=== PATIENT | male | born 1965 | race Caucasian/White ===

== ENCOUNTER 2017-10-01 07:43 | Observation (INO) | payer MEDICARE, OTHER ==
[2017-10-01] VITALS (8 sets, daily range): BP systolic 118–151; BP diastolic 73–88; PULSE 85–128; RESP 15–18; TEMP 97.7–98.3; O2SAT 96–100
[~2017-10-01] VITALS: Ht 172.7 cm; Wt 100.0 kg
[~2017-10-01 07:43] MED LIST: GLIM1 PO; GLUCTAB PO; ZYPR15TA PO
[2017-10-01] MEDS ORDERED: SODIUM CHLORIDE 0.9% FLUSH 10 ML FLUSH IV FLUSH PRN ×2 (08:30→11:45)
[2017-10-01] MEDS ORDERED: TETANUS/DIPHTHERIA TOXOID ADULT 0.5 ML VIAL IM ONE (08:30)
--- NOTE | 2017-10-01 08:46 | RADRPT ---
EXAM DATE/TIME: 10/01/2017 08:28 [facility] COMPARISON: No previous studies available for comparison. INDICATIONS : Fall today, hit face on ground, altered mental status RADIATION DOSE: 56.35 CTDIvol (mGy) MEDICAL HISTORY : Congestive heart failure. Hypertension. Diabetes SURGICAL HISTORY : None. ENCOUNTER: Initial ACUITY: 1 day PAIN SCALE: 4/10 LOCATION: cranial TECHNIQUE: Multiple contiguous axial images were obtained of the head. Using automated exposure control and adj ustment of the mA and/or kV according to patient size, radiation dose was kept as low as reasonably a chievable to obtain optimal diagnostic quality images. DICOM format image data is available electro nically for review and comparison. FINDINGS: CEREBRUM: The ventricles are normal for age. No evidence of midline shift, mass lesion, hemorrhage or acute in farction. No extra-axial fluid collections are seen. POSTERIOR FOSSA: The cerebellum and brainstem are intact. There is a small 2 cm CSF collection along the posterior me dial aspect of the right cerebellum suggesting probable arachnoid cyst. The 4th ventricle is midline. The cerebellopontine angle is unremarkable. EXTRACRANIAL: The visualized portion of the orbits is intact. SKULL: The calvaria is intact. No evidence of skull fracture. CONCLUSION: 1. Probable arachnoid cyst along the posterior medial aspect of the right cerebellum measuring 2 cm. 2. No acute infarct, acute hemorrhage, mass effect or midline shift. Guero Martines MD on October 01, 2017 at 8:42 Board Certified Radiologist. This report was verified electronically.
[2017-10-01 08:56] LABS: AUTOMATED NEUTROPHIL # 9.7 TH/MM3 (1.8-7.7); BASOPHIL # 0.1 TH/MM3 (0-0.2); BASOPHIL % 0.6 % (0.0-2.0); EOSINOPHIL # 0.1 TH/MM3 (0-0.4); EOSINOPHIL % 0.8 % (0.0-4.0); HEMATOCRIT 36.7 % (39.0-51.0); HEMOGLOBIN 12.3 GM/DL (13.0-17.0); LYMPH % 8.4 % (9.0-44.0); MEAN CELL VOLUME 84.8 FL (80.0-100.0); MEAN CORPUSCULAR HEMOGLOBIN 28.4 PG (27.0-34.0); MEAN CORPUSCULAR HGB CONC 33.4 % (32.0-36.0); MEAN PLATELET VOLUME 9.4 FL (7.0-11.0); MONOCYTE # 1.1 TH/MM3 (0-0.9); NEUT % 81.2 % (16.0-70.0); PLATELET COUNT 287 TH/MM3 (150-450); RED BLOOD COUNT 4.33 MIL/MM3 (4.50-5.90); RED CELL DISTRIBUTION WIDTH 13.7 % (11.6-17.2)
[2017-10-01 09:18] LABS: ALBUMIN 3.3 GM/DL (3.4-5.0); AST (GOT) 31 U/L (15-37); BICARBONATE 24.5 MEQ/L (21.0-32.0); BLOOD UREA NITROGEN 19 MG/DL (7-18); CALCIUM 9.5 MG/DL (8.5-10.1); CHLORIDE 100 MEQ/L (98-107); GLOMERULAR FILTRATION RATE 89 ML/MIN (>89); GLUCOSE,RANDOM 133 MG/DL (74-106); SODIUM (NA) 135 MEQ/L (136-145)
[2017-10-01 09:19] LABS: ALT (GPT) 45 U/L (12-78)
[2017-10-01 09:21] LABS: ALKALINE PHOSPHATASE 83 U/L (45-117); TOTAL BILIRUBIN ADULT 0.6 MG/DL (0.2-1.0)
--- NOTE | 2017-10-01 09:44 | RADRPT ---
EXAM DATE/TIME: 10/01/2017 09:03 [facility] COMPARISON: No previous studies available for direct comparison. Comparison made to report from prior chest x-ray from 02/27/2009 which demonstrated elevation of the right hemidiaphragm by report. INDICATIONS : Fever. Cough. MEDICAL HISTORY : Congestive heart failure. Hypertension Diabetes. SURGICAL HISTORY : None. ENCOUNTER: Initial ACUITY: 2 days PAIN SCORE: 1/10 LOCATION: Bilateral chest FINDINGS: Single AP erect portable chest was obtained and demonstrates moderate elevation of the right hemidiap hragm. There are no confluent infiltrates or effusions. The heart size is within normal limits. There is no perihilar edema. The bony thorax is intact. There is a calcified granuloma in the left midlung . CONCLUSION: 1. No acute cardiopulmonary disease. 2. Chronic elevation of the right hemidiaphragm according to report. Shiva Carney MD on October 01, 2017 at 9:39 Board Certified Radiologist. This report was verified electronically.
--- NOTE | 2017-10-01 10:41 | PD ---
HPI Chief Complaint: Fall Time Seen by Provider: 08:04 Travel History International Travel<30 days: No Contact w/Intl Traveler<30days: No Traveled to known affect area: No History of Present Illness HPI The patient is 52 years old. He arrives to the ER by EMS. He reports to me that he had a fall after sitting on a park bench when he stood up and then became dizzy. The patient fell to the ground. [facility] called EMS. Here he reports admission to the hospital in [place] for 2 years following a fall. His bilateral upper extremity weakness chronic in nature with flexion deformities at the wrists bilaterally. Patient is not sure of the diagnosis of the care is to account for it. He reports taking a nerve stimulation medication for the wrist weakness. He reports the upper extremity weakness is due to a fall onto the left side in the remote past. PFSH Past Medical History Arthritis: No Asthma: No Heart Rhythm Problems: No Cardiovascular Problems: No High Cholesterol: No Chest Pain: No Congestive Heart Failure: Yes COPD: No Cerebrovascular Accident: No Diabetes: Yes (States has not taken diabetes medicine for 3-4 days; Not sure what he takes) Patient Takes Glucophage: No Diminished Hearing: No GERD: Yes Genitourinary: No Headaches: No Hepatitis: No Hiatal Hernia: No Hypertension: Yes Musculoskeletal: No Psychiatric: Yes (CHRONIC PARANOID SCHIZOPHRENIA) Reproductive: No Respiratory: No Myocardial Infarction: No Schizophrenia: Yes Seizures: No Ulcer: No Tetanus Vaccination: > 5 Years Influenza Vaccination: No Past Surgical History Surgical History: No Previous Surgery Appendectomy: No Social History Alcohol Use: No Tobacco Use: No Substance Use: No Allergies-Medications (Allergen,Severity, Reaction): Coded Allergies: No Known Allergies (Verified Allergy, Unknown, 10/01/17) Reported Meds & Prescriptions Reported Meds & Active Scripts Active No Active Prescriptions or Reported Medications Review of Systems Except as stated in HPI: all other systems reviewed are Neg General / Constitutional: No: Fever Physical Exam Narrative GENERAL: 52 yo M, WNWD, chronically ill in appearance Vital Signs Date Time Temp Pulse Resp B/P (MAP) Pulse Ox O2 Delivery O2 Flow Rate FiO2 10/01/17 10:51 98.3 85 15 118/75 (89) 97 Room Air 10/01/17 09:54 98.2 93 15 151/79 (103) 100 Room Air 10/01/17 08:29 97.8 98 17 127/86 (100) 99 Room Air 10/01/17 08:10 98 18 98 Room Air 10/01/17 08:05 97.7 100 18 147/88 (107) 98 SKIN: Warm and dry. There are large blisters about the lower extremities bilaterally. HEAD: Atraumatic. Normocephalic. EYES: Pupils equal and round. No scleral icterus. No injection or drainage. ENT: No nasal bleeding or discharge. Mucous membranes pink and moist. NECK: Trachea midline. No JVD. CARDIOVASCULAR: Regular rate and rhythm. RESPIRATORY: No accessory muscle use. Clear to auscultation. Breath sounds equal bilaterally. GASTROINTESTINAL: Abdomen soft, non-tender, nondistended. Hepatic and splenic margins not palpable. MUSCULOSKELETAL: 2+ pitting edema about the bilateral lower extremities. NEUROLOGICAL: Awake and alert. No obvious cranial nerve deficits. Motor grossly within normal limits. Five out of 5 muscle strength in the arms and legs. Normal speech. PSYCHIATRIC: Appropriate mood and affect; insight and judgment normal. Data Data Last Documented VS Vital Signs Date Time Temp Pulse Resp B/P (MAP) Pulse Ox O2 Delivery O2 Flow Rate FiO2 10/01/17 10:51 98.3 85 15 118/75 (89) 97 Room Air Orders Orders Electrocardiogram (10/01/17 08:19) Comprehensive Metabolic Panel (10/01/17 08:19) Creatine Kinase (Cpk) (10/01/17 08:19) Chest, Single Ap (10/01/17 08:19) Ct Brain W/O Iv Contrast(Rout) (10/01/17 08:19) Ecg Monitoring (10/01/17 08:19) Iv Access Insert/Monitor (10/01/17 08:19) Oximetry (10/01/17 08:19) Sodium Chloride 0.9% Flush (Ns Flush) (10/01/17 08:30) Drug Screen, Random Urine (10/01/17 08:19) Alcohol (Ethanol) (10/01/17 08:19) B-Type Natriuretic Peptide (10/01/17 08:19) Tetanus/Diphtheria Tox Adult (Tetanus/Di (10/01/17 08:30) Complete Blood Count With Diff (10/01/17 08:19) CKMB (10/01/17 08:30) CKMB% (10/01/17 08:30) Admit Order (Ed Use Only) (10/01/17 ) Vital Signs (Adult) Q4H (10/01/17 11:01) Activity Bed Rest (10/01/17 11:01) Labs Laboratory Tests Test 10/01/17 08:30 White Blood Count 12.0 TH/MM3 Red Blood Count 4.33 MIL/MM3 Hemoglobin 12.3 GM/DL Hematocrit 36.7 % Mean Corpuscular Volume 84.8 FL Mean Corpuscular Hemoglobin 28.4 PG Mean Corpuscular Hemoglobin Concent 33.4 % Red Cell Distribution Width 13.7 % Platelet Count 287 TH/MM3 Mean Platelet Volume 9.4 FL Neutrophils (%) (Auto) 81.2 % Lymphocytes (%) (Auto) 8.4 % Monocytes (%) (Auto) 9.0 % Eosinophils (%) (Auto) 0.8 % Basophils (%) (Auto) 0.6 % Neutrophils # (Auto) 9.7 TH/MM3 Lymphocytes # (Auto) 1.0 TH/MM3 Monocytes # (Auto) 1.1 TH/MM3 Eosinophils # (Auto) 0.1 TH/MM3 Basophils # (Auto) 0.1 TH/MM3 CBC Comment DIFF FINAL Differential Comment Blood Urea Nitrogen 19 MG/DL Creatinine 0.90 MG/DL Random Glucose 133 MG/DL Total Protein 8.0 GM/DL Albumin 3.3 GM/DL Calcium Level 9.5 MG/DL Alkaline Phosphatase 83 U/L Aspartate Amino Transf (AST/SGOT) 31 U/L Alanine Aminotransferase (ALT/SGPT) 45 U/L Total Bilirubin 0.6 MG/DL Sodium Level 135 MEQ/L Potassium Level 4.3 MEQ/L Chloride Level 100 MEQ/L Carbon Dioxide Level 24.5 MEQ/L Anion Gap 11 MEQ/L Estimat Glomerular Filtration Rate 89 ML/MIN Total Creatine Kinase 671 U/L Creatine Kinase MB 18.2 NG/ML Creatine Kinase MB % 2.7 % B-Type Natriuretic Peptide 23 PG/ML Urine Opiates Screen NEG Urine Barbiturates Screen NEG Urine Amphetamines Screen NEG Urine Benzodiazepines Screen NEG Urine Cocaine Screen NEG Urine Cannabinoids Screen NEG Ethyl Alcohol Level LESS THAN 3 MG/DL MDM Medical Decision Making Medical Screen Exam Complete: Yes Emergency Medical Condition: Yes Medical Record Reviewed: Yes Differential Diagnosis Renal failure, anemia, alcoholism, stroke, intrarenal hemorrhage, encephalopathy Narrative Course CBC & BMP Diagram 10/01/17 08:30 Total Protein 8.0, Albumin 3.3 L, Calcium Level 9.5, Alkaline Phosphatase 83, Aspartate Amino Transf (AST/SGOT) 31, Alanine Aminotransferase (ALT/SGPT) 45, Total Bilirubin 0.6 Total CK 671 BNP 23 UTox callahan-negative EtOH < 3 Etiology of altered mental status unclear. Admission to [facility] [place]. Discussed with Dr. Boateng. Diagnosis Primary Impression: History of recent fall Additional Impressions: Abrasion, face without infection Lower extremity edema FEN Altered mental status Qualified Codes: R41.82 - Altered mental status, unspecified Admitting Information Admitting Physician Requests: Observation Scripts No Active Prescriptions or Reported Meds Jez Yee MD Oct 01, 2017 10:41
--- NOTE | 2017-10-01 11:09 | HHI.HP ---
HPI Service Family Medicine Primary Care Physician Unknown Admission Diagnosis AMS; Fall; Edema Diagnoses: International Travel<30 Days: No Contact w/Intl Traveler<30days: No Known Affected Area: No History of Present Illness Patient is a 52 y/o M w/hx of paranoid schizophrenia presenting w/LE edema. Fell at around 5:30 am from a bench after sleeping. States he slipped while standing up and his knees caught the pavement and his his head on the pavement. Thinks he might have been dizzy or half sleeping when he fell after being startled by something that woke him up. Was able to get back up in 10 minutes by himself. Got passerbys to call the police and ambulance. No vision changes, no syncope, no nausea or vertigo, no chest pain or palpitations. Last meal was yesterday evening - was a foot-long sandwich. No hx of falls. Has had watery diarrhea for the last couple days. No abdominal pain, no vomiting, no recent illness. No fevers, chills, or night sweats. No heart disease or lung disease hx or work-up. No dysuria. Leg swelling noticed to worsen in the last two weeks. Saw a little swelling in [place]. Has scratches on his forehead. States he had bleeding from his nose and face after fall. Was taking something for his arms "to stimulate his arms." Does not remember what it was. Reports that he came to [place] on the 14 of September from an assisted living place in [place] by [employer] bus. States he got him three meals a day and that they took care of him. States he came back because he is a telida, and he was at the end of his stay. Has not taken his medications since leaving. Last hospitalized in [place] in 2009 for psychosis and being "so paranoid he was unable to have cogent conversation w/physician." Was discharged w/Zyprexa 15 mg PO BID. It appears he has stopped taking this medication a while ago. (Oriana Boateng MD R1) Review of Systems Constitutional: DENIES: Fatigue, Weight loss Endocrine: DENIES: Polydipsia, Polyuria Eyes: DENIES: Blurred vision, Vision loss Ears, nose, mouth, throat: DENIES: Hearing loss, Throat pain Respiratory: DENIES: Cough, Shortness of breath Cardiovascular: DENIES: Chest pain Gastrointestinal: DENIES: Constipation, Diarrhea Genitourinary: DENIES: Urinary incontinence, Urgency Musculoskeletal: DENIES: Joint pain, Muscle aches Integumentary: DENIES: Abnormal pigmentation Hematologic/lymphatic: DENIES: Bruising Immunologic/allergic: DENIES: Eczema Neurologic: DENIES: Localized weakness, Paresthesias, Poor Balance (Oriana Boategn MD R1) Past Family Social History Past Medical History Schizophrenia Rotator cuff tear on the left - slight, no surgery warranted Diabetes per prior documentation Past Surgical History None (Oriana Boateng MD R1) Allergies: Coded Allergies: No Known Allergies (Verified Allergy, Unknown, 10/01/17) Family History Mom: passed from cancer Dad: passed from natural causes Social History No smoking or drinking Currently homeless, visits friends Is on social security disability (Oriana Boateng MD R1) Physical Exam Vital Signs Vital Signs Date Time Temp Pulse Resp B/P (MAP) Pulse Ox O2 Delivery O2 Flow Rate FiO2 10/01/17 10:51 98.3 85 15 118/75 (89) 97 Room Air 10/01/17 09:54 98.2 93 15 151/79 (103) 100 Room Air 10/01/17 08:29 97.8 98 17 127/86 (100) 99 Room Air 10/01/17 08:10 98 18 98 Room Air 10/01/17 08:05 97.7 100 18 147/88 (107) 98 Physical Exam GENERAL: This is a tanned, disheveled appearing man sitting up in bed and sleeping. SKIN: A superficial 4x2 cm scratch w/skin desquamation, draining serosanguinous fluid. Some hyperpigmentation of the lower extremities noted. Healing facial abrasions and superficial scratches on the forhead, the nasal bridge, and near the right nares. No drainage or bleeding noted. HEAD: Atraumatic. Normocephalic. No temporal or scalp tenderness. EYES: Pupils equal round and reactive. Extraocular motions intact. No scleral icterus. No injection or drainage. ENT: Moist mucous membranes. Throat without erythema, tonsillar hypertrophy or exudate. Uvula midline. Airway patent. NECK: supple CARDIOVASCULAR: Regular rate and rhythm without murmurs, gallops, or rubs. RESPIRATORY: Clear to auscultation. Breath sounds equal bilaterally. No wheezes , rales, or rhonchi. GASTROINTESTINAL: Abdomen soft, protuberant. No hepato-splenomegaly, or palpable masses. No guarding. MUSCULOSKELETAL: Significant bilateral swelling of the lower extremities, red and crockett color w/sharp demarcation from rest of skin. Tenderness to slight touch , does not appear to be pitting. Bilateral hands in a clawed position, unable to extend at the wrist but able to flex. 4/5 motor strength at the right hand, 5 /5 left. Normal ROM of the lower extremities, no change in motor strength. NEUROLOGICAL: Awake and alert. Cranial nerves II through XII intact. Motor and sensory grossly within normal limits. Normal speech. Sensation of the bottom of the feet and toes intact. Slight numbness endorses by patient. PSYCH: lucid, alert and oriented x 3 (place, date, name). Denies visual or auditory hallucinations. Laboratory Laboratory Tests Test 10/01/17 08:30 White Blood Count 12.0 Red Blood Count 4.33 Hemoglobin 12.3 Hematocrit 36.7 Mean Corpuscular Volume 84.8 Mean Corpuscular Hemoglobin 28.4 Mean Corpuscular Hemoglobin Concent 33.4 Red Cell Distribution Width 13.7 Platelet Count 287 Mean Platelet Volume 9.4 Neutrophils (%) (Auto) 81.2 Lymphocytes (%) (Auto) 8.4 Monocytes (%) (Auto) 9.0 Eosinophils (%) (Auto) 0.8 Basophils (%) (Auto) 0.6 Neutrophils # (Auto) 9.7 Lymphocytes # (Auto) 1.0 Monocytes # (Auto) 1.1 Eosinophils # (Auto) 0.1 Basophils # (Auto) 0.1 CBC Comment DIFF FINAL Differential Comment Blood Urea Nitrogen 19 Creatinine 0.90 Random Glucose 133 Total Protein 8.0 Albumin 3.3 Calcium Level 9.5 Alkaline Phosphatase 83 Aspartate Amino Transf (AST/SGOT) 31 Alanine Aminotransferase (ALT/SGPT) 45 Total Bilirubin 0.6 Sodium Level 135 Potassium Level 4.3 Chloride Level 100 Carbon Dioxide Level 24.5 Anion Gap 11 Estimat Glomerular Filtration Rate 89 Total Creatine Kinase 671 Creatine Kinase MB 18.2 Creatine Kinase MB % 2.7 B-Type Natriuretic Peptide 23 Urine Opiates Screen NEG Urine Barbiturates Screen NEG Urine Amphetamines Screen NEG Urine Benzodiazepines Screen NEG Urine Cocaine Screen NEG Urine Cannabinoids Screen NEG Ethyl Alcohol Level LESS THAN 3 (Oriana Boateng MD R1) Result Diagram: 10/01/1782910/01/17829 Imaging Last Impressions Head CT 10/01/17818 Signed Impressions: Service Date/Time: Sunday, October 01, 2017 08:28 - CONCLUSION: 1. Probable arachnoid cyst along the posterior medial aspect of the right cerebellum measuring 2 cm. 2. No acute infarct, acute hemorrhage, mass effect or midline shift. Guero Martines MD Chest X-Ray 10/01/17818 Signed Impressions: Service Date/Time: Sunday, October 01, 2017 09:03 - CONCLUSION: 1. No acute cardiopulmonary disease. 2. Chronic elevation of the right hemidiaphragm according to report. Shiva Carney MD (Oriana Boateng MD R1) Caprini VTE Risk Assessment Corinne VTE Risk Assessment: Mod/High Risk (score >= 2) (Oriana Boateng MD R1) Assessment and Plan Assessment and Plan Patient is a 52 y/o M presenting w/LE edema and recent fall. Hx of DM and schizophrenia. No other information available. Will contact assisted living facility in [place] tomorrow to obtain further medical hx information. Code Status FULL Discussed Condition With Dr. Perez (Oriana Boateng MD R1) Attending Attestation Patient seen and examined. Discussed with Dr. Boateng. Agree with physical findings , assessment and plan as documented. (Ignacio Perez Jr., MD) Problem List: (1) Lower extremity edema ICD Codes: R60.0 - Localized edema Plan: Bilateral and symmetric Hx of DM BNP w/in normal limits ECG pending CT of brain shows no acute abnormalities WBC slightly elevated Diff: venous stasis dermatitis v cellulitis v DVTs Cirrhosis and heart failure less likely at this time - LFTs and BNP wnl, no dyspnea w/exertion Order A1C and TSH to assess for edema 2/2 to hypothyroidism or uncontrolled chronic DM Order lactic acid and ESR to assess for cellulitis Consider 2 D echo Order UA to evaluate for renal disease Give Lasix 20 mg IV x1, start Lasix 20 mg BID tomorrow. CMP tomorrow Bilateral lower extremity dopplers Keflex 500 mg Q6H.Will monitor for improvement (2) History of recent fall ICD Codes: Z91.81 - History of falling Plan: Occurred once today May be secondary to incidental slip v lower extremity edema causes functional disability v electrolyte abnormality v peripheral neuropathy Drug screen negative,alcohol level <3 CMP shows minimal changes, not likely contributory CK of 671, possible secondary to dehydration or injury/fall Order magnesium, phosphorus, B1, B12, and ammonia levels to rule out contributors to altered mental status or poor balance Cardiac monitoring and EKG Vitals Q4H I/Os (3) Abrasion, face without infection ICD Codes: S00.81XA - Abrasion of other part of head, initial encounter Plan: T/d booster given in the ED Encourage to keep site clean (4) Homeless ICD Codes: Z59.0 - Homelessness Plan: Patient is homeless and on disability. Case management consulted. (5) FEN Plan: Nutrition: Regular Diet Electrolytes: not indicated Fluids: PO DVT prophy: Lovenox q24H, RFTs wnl (Oriana Boateng MD R1) Oriana Boateng MD R1 Oct 01, 2017 11:09 Ignacio Perez Jr., MD Oct 01, 2017 21:09
[2017-10-01 13:28] LABS: BILIRUBIN, URINE NEG (NEG); BLOOD, URINE NEG (NEG); GLUCOSE,URINE NEG (NEG); KETONE, URINE TRACE mg/dL (NEG); NITRITE,URINE NEG (NEG); PH, URINE 5.5 (5.0-8.5); SQUAMOUS EPITHELIAL CELL URINE <1 /hpf (0-5); URINE COLOR LIGHT-YELLOW (YELLW/STRAW); URINE LEUKOCYTE ESTERASE NEG (NEG)
[2017-10-01] MEDS ORDERED: FUROSEMIDE 20 MG/2 ML VIAL IV PUSH ONE (14:15)
[2017-10-01 14:37] LABS: MAGNESIUM 2.3 MG/DL (1.5-2.5); PHOSPHORUS 2.6 MG/DL (2.5-4.9)
[2017-10-01] MEDS: CEPHALEXIN MONOHYDRATE 500 MG CAP PO SCH ×2 (15:39→23:01)
[2017-10-01] MEDS: ENOXAPARIN SODIUM 40 MG/0.4 ML SYRINGE SQ SCH (15:39)
--- NOTE | 2017-10-01 15:42 | RADRPT ---
EXAM DATE/TIME: 10/01/2017 14:31 [facility] COMPARISON: No previous studies available for comparison. INDICATIONS : Bilateral leg swelling. MEDICAL HISTORY : Hypertension. Gastroesophageal reflux disease. Congestive heart failure. Schizophrenia. Diabetes. SURGICAL HISTORY : None. ENCOUNTER: Initial ACUITY: 1 day PAIN SCORE: 0/10 LOCATION: Bilateral legs. TECHNIQUE: Venous ultrasound of the left and right leg was performed from the inguinal ligament to the proximal calf. Real-time, color Doppler and spectral tracing, compression and augmentation techniques were us ed. FINDINGS: RIGHT LEG: There is normal compressibility of the deep venous system from the inguinal region to the proximal ca lf. No echogenic clot is seen in the lumen of the common femoral, femoral, popliteal, and posterior tibial veins. There is a normal response of the venous system to proximal and distal augmentation an d respiration. LEFT LEG: There is normal compressibility of the deep venous system from the inguinal region to the proximal ca lf. No echogenic clot is seen in the lumen of the common femoral, femoral, popliteal, and posterior tibial veins. There is a normal response of the venous system to proximal and distal augmentation an d respiration. CONCLUSION: No acute disease. Guero Martines MD on October 01, 2017 at 15:39 Board Certified Radiologist. This report was verified electronically.
[2017-10-01 17:51] LABS: HEMOGLOBIN A1C 6.5 % (4.3-6.0)
--- NOTE | 2017-10-01 20:59 | EKG ---
Date Performed: 10/01/2017 Time Performed: 08:58:09 PTAGE: 52 years EKG: Sinus rhythm NORMAL ECG PREVIOUS TRACING : 10/01/2017 08.51 No significant change from previous tracing noted. DOCTOR: Sumit Jones Interpretating Date/Time 10/01/2017 20:58:13
[2017-10-01] MEDS: SODIUM CHLORIDE 0.9% FLUSH 10 ML FLUSH IV FLUSH SCH (23:01)
[2017-10-02] VITALS (9 sets, daily range): BP systolic 120–136; BP diastolic 64–82; PULSE 86–112; RESP 16–23; TEMP 97.4–98.8; O2SAT 94–99
[2017-10-02 05:49] LABS: AUTOMATED NEUTROPHIL # 5.5 TH/MM3 (1.8-7.7); BASOPHIL % 0.5 % (0.0-2.0); EOSINOPHIL # 0.1 TH/MM3 (0-0.4); HEMATOCRIT 35.4 % (39.0-51.0); HEMOGLOBIN 11.7 GM/DL (13.0-17.0); LYMPH % 14.5 % (9.0-44.0); LYMPHOCYTE # 1.1 TH/MM3 (1.0-4.8); MEAN CORPUSCULAR HEMOGLOBIN 28.5 PG (27.0-34.0); MEAN CORPUSCULAR HGB CONC 33.1 % (32.0-36.0); MEAN PLATELET VOLUME 9.6 FL (7.0-11.0); MONO % 11.9 % (0.0-8.0); MONOCYTE # 0.9 TH/MM3 (0-0.9); NEUT % 72.1 % (16.0-70.0); PLATELET COUNT 266 TH/MM3 (150-450); RED BLOOD COUNT 4.11 MIL/MM3 (4.50-5.90); WHITE BLOOD COUNT 7.7 TH/MM3 (4.0-11.0)
[2017-10-02 05:52] LABS: ALBUMIN 2.7 GM/DL (3.4-5.0); ALT (GPT) 39 U/L (12-78); AST (GOT) 34 U/L (15-37); BICARBONATE 26.8 MEQ/L (21.0-32.0); BLOOD UREA NITROGEN 20 MG/DL (7-18); CALCIUM 8.9 MG/DL (8.5-10.1); CHLORIDE 102 MEQ/L (98-107); CREATININE 0.95 MG/DL (0.60-1.30); GLOMERULAR FILTRATION RATE 84 ML/MIN (>89); GLUCOSE,RANDOM 123 MG/DL (74-106); SODIUM (NA) 137 MEQ/L (136-145)
[2017-10-02 05:55] LABS: ALKALINE PHOSPHATASE 69 U/L (45-117); TOTAL BILIRUBIN ADULT 0.6 MG/DL (0.2-1.0); TOTAL PROTEIN 6.8 GM/DL (6.4-8.2)
[2017-10-02] MEDS: CEPHALEXIN MONOHYDRATE 500 MG CAP PO SCH ×3 (05:58→17:36)
[2017-10-02] MEDS: SODIUM CHLORIDE 0.9% FLUSH 10 ML FLUSH IV FLUSH SCH ×2 (07:27→21:52)
--- NOTE | 2017-10-02 10:49 | HHI.FPPN ---
Subjective Remarks Patient states that he did well overnight, states that he is feeling better that his swelling is decreased. Vitals within normal limits. Is able to ambulate without any problems, adequate intake. Patient had an episode of diarrhea this morning and also last night. Describes it as watery, brown, and explosive. Has been occurring the last 4 days. In between at some point, patient did have a regular bowel movement. Not associated with abdominal pain. Patient complains of no pain, no shortness of breath. Patient did have a sponge bath yesterday. (Oriana Boateng MD R1) Objective Vitals Vital Signs Date Time Temp Pulse Resp B/P (MAP) Pulse Ox O2 Delivery O2 Flow Rate FiO2 10/02/17 09:01 98.5 98 20 120/65 (83) 94 10/02/17 04:00 97.4 95 18 136/80 (98) 98 10/02/17 00:00 97.6 95 16 136/82 (100) 98 10/01/17 23:53 97 10/01/17 20:03 128 10/01/17 20:00 98.0 111 16 133/73 (93) 96 10/01/17 13:05 97.8 78 16 118/81 (93) 99 10/01/17 10:51 98.3 85 15 118/75 (89) 97 Room Air I/O 10/01/17 10/01/17 10/01/17 10/02/17 10/02/17 10/02/17 07:00 15:00 23:00 07:00 15:00 23:00 Intake Total 480 ml Output Total 500 ml 1500 ml Balance -20 ml -1500 ml Intake Oral 480 ml Output Urine Total 500 ml 1500 ml # Voids 3 # Bowel Movements 1 1 (Oriana Boateng MD R1) Result Diagram: 10/02/17 0405 10/02/17 0405 Objective Remarks O. CONSTITUTIONAL/GEN: This is a pleasant, polite, disheveled appearing homeless man,significantly tanned, resting comfortably in bed. EYES: conjunctiva normal, EOMI. ENT: Mouth and pharynx normal. LUNGS: clear A-P, respiratory effort is normal. CARDIOVASCULAR: RR without murmur or gallop. No significant edema. GI/ABD: soft without masses, without organomegaly. NEURO: No focal deficits. Sensation on the bottom and top of the feet intact. Slightly lessened over the ball of the foot and heels. The skin at these areas are tightened and calloused. SKIN: There are numerous healing ulcerations on both legs and the sanchez area. Superficial scratches on the forehead and right side of the face are healing well. Entire face and lower extremities are caked with dirt. HEME/LYMPH: no bruising or petechia. MUSC: Upper extremities are clawlike in appearance, right extremity has some mild swelling. There is a area of slight superficial desquamation of the skin ( with underlying redness, no drainage) on the posterior hand. Bilateral lower extremities are mildly to moderately edematous. Improvement in edema and redness since yesterday's exam. No calf swelling, redness, or tenderness.Patient is able to move all of his toes and feet, though there is some restriction due to edema of the toes and feet. PSYCH/MENTAL STATUS: Alert and oriented x 3. (Oriana Boateng MD R1) A/P Assessment and Plan Patient is a 52 y/o homeless man admitted for significant LE edema and recent fall. Discharge Planning Likely tomorrow, pending further clinical improvement of LE edema (Oriana Boateng MD R1) Attending Attestation Patient seen and examined. Discussed with Dr. Boateng. Agree with assessment and plan as documented. (Prevatte,Ignacio Velarde Jr., MD) Problem List: (1) Lower extremity edema ICD Codes: R60.0 - Localized edema Status: Acute Plan: Bilateral and symmetric BNP and LFTs w/in normal limits CT of brain,ECG , bilateral LE dopplers showed no acute abnormalities WBC slightly elevated on admission, down to 11.7 (12.3) ESR 56 Diff: venous stasis dermatitis v reaction to prolonged sun exposure v cellulitis Improved today, some mild restriction of toe movement due to edema Con't Lasix 20 mg BID until D/C Con't Keflex 500 mg Q6H (10/01-) (2) History of recent fall ICD Codes: Z91.81 - History of falling Status: Acute Plan: Occurred once today Drug screen negative,alcohol level <3 CMP shows minimal changes, not likely contributory Magnesium, phosphorus, B1, B12, and ammonia levels wnl No arrythmias or abnormalities on EKG/tele Slight numbness of feet endorsed on exam, may likely be due to significant edema May be secondary to incidental slip v lower extremity edema causes functional disability PT assessment ordered for today (3) Diarrhea ICD Codes: R19.7 - Diarrhea, unspecified Status: Acute Plan: Occurring in the last 4 days per patient report 1 normal BM in between More concern if longer than a week because patient is asymptomatic No electrolyte abnormalities on CMP Because patient has poor follow-up w/health care, will order stool studies to rule out infectious cause Will need to follow-up w/a PCP to further evaluate (4) Abrasion, face without infection ICD Codes: S00.81XA - Abrasion of other part of head, initial encounter Status: Acute Plan: T/d booster given in the ED Healing Spoke with nurse and patient today about having patient take a shower to further adequately clean (5) Homeless ICD Codes: Z59.0 - Homelessness Status: Chronic Plan: Patient is homeless and on disability. Case management consulted. Spoke with case management today about helping patient to set up an appointment with [facility]. (6) DM2 (diabetes mellitus, type 2) ICD Codes: E11.9 - Type 2 diabetes mellitus without complications Status: Chronic Plan: A1C from 10/02 = 6.5 Bedside and fasting glucose levels have been less than 180; thus, do not warrant inpatient treatment or control at this time We will continue to monitor. Patient will need to follow-up with a provider to further monitor or manage. (7) FEN Plan: Nutrition: Regular Diet Electrolytes: not indicated Fluids: PO DVT prophy: Lovenox q24H, RFTs wnl (Oriana Boateng MD R1) Problem Qualifiers (1) Diarrhea: Qualified Codes: R19.7 - Diarrhea, unspecified (2) DM2 (diabetes mellitus, type 2): Qualified Codes: E11.8 - Type 2 diabetes mellitus with unspecified complications Oriana Boateng MD R1 Oct 02, 2017 10:49 Ignacio Perez Jr., MD Oct 02, 2017 15:20
[2017-10-02] MEDS: ENOXAPARIN SODIUM 40 MG/0.4 ML SYRINGE SQ SCH (14:11)
[2017-10-02] MEDS: FUROSEMIDE 20 MG TAB PO SCH (17:36)
[2017-10-03] VITALS (8 sets, daily range): BP systolic 118–143; BP diastolic 71–80; PULSE 71–105; RESP 18–19; TEMP 97–98.9; O2SAT 95–97
[2017-10-03] MEDS: CEPHALEXIN MONOHYDRATE 500 MG CAP PO SCH ×3 (00:08→12:11)
[2017-10-03] MEDS: FUROSEMIDE 20 MG TAB PO SCH (08:05)
[2017-10-03] MEDS: SODIUM CHLORIDE 0.9% FLUSH 10 ML FLUSH IV FLUSH SCH (08:09)
[2017-10-03] MEDS ORDERED: MUPIROCIN 2% OINT 22 GM TUBE TOPICAL ONE (10:15)
[2017-10-03] MEDS ORDERED: CEPH-460 PO (10:18)
[2017-10-03] MEDS ORDERED: MUPI2OIN TOPICAL (10:18)
--- NOTE | 2017-10-03 10:41 | HHI.FPPN ---
Objective Vitals Vital Signs Date Time Temp Pulse Resp B/P (MAP) Pulse Ox O2 Delivery O2 Flow Rate FiO2 10/03/17 08:00 97.5 71 18 119/71 (87) 97 10/03/17 07:49 88 10/03/17 03:45 98.9 82 19 125/80 (95) 95 10/03/17 00:30 97.0 105 18 118/75 (89) 95 10/03/17 00:00 101 10/02/17 21:47 21 10/02/17 21:40 98.8 112 23 130/80 (97) 95 10/02/17 20:00 106 10/02/17 18:59 86 10/02/17 15:57 97.9 98 20 125/72 (89) 95 10/02/17 12:20 97.9 92 20 128/64 (85) 99 I/O 10/02/17 10/02/17 10/02/17 10/03/17 10/03/17 10/03/17 07:00 15:00 23:00 07:00 15:00 23:00 Intake Total 720 ml 970 ml Output Total 1501 ml 0 ml 1000 ml 150 ml Balance -1501 ml 720 ml -30 ml -150 ml Intake Oral 720 ml 970 ml Output Urine Total 1500 ml 0 ml 1000 ml 150 ml Stool Total 1 ml # Voids 4 3 # Bowel Movements 1 0 0 Result Diagram: 10/02/17 0405 10/02/17 0405 Objective Remarks O. CONSTITUTIONAL/GEN: This is a pleasant, polite, disheveled appearing homeless man,significantly tanned, resting comfortably in bed. EYES: conjunctiva normal, EOMI. ENT: Mouth and pharynx normal. LUNGS: clear A-P, respiratory effort is normal. CARDIOVASCULAR: RR without murmur or gallop. No significant edema. GI/ABD: soft without masses, without organomegaly. NEURO: No focal deficits. Sensation on the bottom and top of the feet intact. Slightly lessened over the ball of the foot and heels. The skin at these areas are tightened and calloused. SKIN: There are numerous healing ulcerations on both legs and the sanchez area. Superficial scratches on the forehead and right side of the face are healing well. Entire face and lower extremities are caked with dirt. HEME/LYMPH: no bruising or petechia. MUSC: Upper extremities are clawlike in appearance, right extremity has some mild swelling. There is a area of slight superficial desquamation of the skin ( with underlying redness, no drainage) on the posterior hand. Bilateral lower extremities are mildly to moderately edematous. Improvement in edema and redness since yesterday's exam. No calf swelling, redness, or tenderness.Patient is able to move all of his toes and feet, though there is some restriction due to edema of the toes and feet. PSYCH/MENTAL STATUS: Alert and oriented x 3. A/P Assessment and Plan Patient is a 52 y/o homeless man admitted for significant LE edema and recent fall. Discharge Planning Likely tomorrow, pending further clinical improvement of LE edema Problem List: (1) Lower extremity edema ICD Codes: R60.0 - Localized edema Status: Acute Plan: Bilateral and symmetric BNP and LFTs w/in normal limits CT of brain,ECG , bilateral LE dopplers showed no acute abnormalities WBC slightly elevated on admission, down to 11.7 (12.3) ESR 56 Diff: venous stasis dermatitis v reaction to prolonged sun exposure v cellulitis Improved today, some mild restriction of toe movement due to edema Con't Lasix 20 mg BID until D/C Con't Keflex 500 mg Q6H (10/01-) (2) History of recent fall ICD Codes: Z91.81 - History of falling Status: Acute Plan: Occurred once today Drug screen negative,alcohol level <3 CMP shows minimal changes, not likely contributory Magnesium, phosphorus, B1, B12, and ammonia levels wnl No arrythmias or abnormalities on EKG/tele Slight numbness of feet endorsed on exam, may likely be due to significant edema May be secondary to incidental slip v lower extremity edema causes functional disability PT assessment ordered for today (3) Diarrhea ICD Codes: R19.7 - Diarrhea, unspecified Status: Acute Plan: Occurring in the last 4 days per patient report 1 normal BM in between More concern if longer than a week because patient is asymptomatic No electrolyte abnormalities on CMP Because patient has poor follow-up w/health care, will order stool studies to rule out infectious cause Will need to follow-up w/a PCP to further evaluate (4) Abrasion, face without infection ICD Codes: S00.81XA - Abrasion of other part of head, initial encounter Status: Acute Plan: T/d booster given in the ED Healing Spoke with nurse and patient today about having patient take a shower to further adequately clean (5) Homeless ICD Codes: Z59.0 - Homelessness Status: Chronic Plan: Patient is homeless and on disability. Case management consulted. Spoke with case management today about helping patient to set up an appointment with [facility] [address]. (6) DM2 (diabetes mellitus, type 2) ICD Codes: E11.9 - Type 2 diabetes mellitus without complications Status: Chronic Plan: A1C from 10/02 = 6.5 Bedside and fasting glucose levels have been less than 180; thus, do not warrant inpatient treatment or control at this time We will continue to monitor. Patient will need to follow-up with a provider to further monitor or manage. (7) FEN Plan: Nutrition: Regular Diet Electrolytes: not indicated Fluids: PO DVT prophy: Lovenox q24H, RFTs wnl Problem Qualifiers (1) Diarrhea: Qualified Codes: R19.7 - Diarrhea, unspecified (2) DM2 (diabetes mellitus, type 2): Qualified Codes: E11.8 - Type 2 diabetes mellitus with unspecified complications Oriana Boateng MD R1 Oct 03, 2017 10:41
--- NOTE | 2017-10-03 10:41 | HHI.DCPOC ---
Discharge Care Plan Diagnosis: (1) Lower extremity edema Additional Problems Lower extremity superficial lesion: apply mupirocin ointment three times a day to site for 3 days to prevent infection. Keep site clean and exposed to air. Goals to Promote Your Health * To prevent worsening of your condition and complications * To maintain your health at the optimal level Directions to Meet Your Goals Take your medications as prescribed Follow your dietary instruction Follow activity as directed Keep your appointments as scheduled Take your immunizations and boosters as scheduled If your symptoms worsen call your PCP, if no PCP go to Urgent Care Center or Emergency Room Smoking is Dangerous to Your Health. Avoid second hand smoke Call the 24-hour hour crisis hotline for domestic abuse at Oriana Boateng MD R1 Oct 03, 2017 10:41
--- NOTE | 2017-10-03 11:44 | HHI.FPPN ---
Subjective Remarks Vitals stable overnight. No problems or acute issues. Patient is having adequate intake and output. Had a shower yesterday. Today patient reports that he is having some mild pain of his skin on the lower extremities - feels like a sunburn. Is able to ambulate appropriately. Objective Vitals Vital Signs Date Time Temp Pulse Resp B/P (MAP) Pulse Ox O2 Delivery O2 Flow Rate FiO2 10/03/17 11:07 97 10/03/17 08:00 97.5 71 18 119/71 (87) 97 10/03/17 07:49 88 10/03/17 03:45 98.9 82 19 125/80 (95) 95 10/03/17 00:30 97.0 105 18 118/75 (89) 95 10/03/17 00:00 101 10/02/17 21:47 21 10/02/17 21:40 98.8 112 23 130/80 (97) 95 10/02/17 20:00 106 10/02/17 18:59 86 10/02/17 15:57 97.9 98 20 125/72 (89) 95 10/02/17 12:20 97.9 92 20 128/64 (85) 99 I/O 10/02/17 10/02/17 10/02/17 10/03/17 10/03/17 10/03/17 07:00 15:00 23:00 07:00 15:00 23:00 Intake Total 720 ml 970 ml Output Total 1501 ml 0 ml 1000 ml 150 ml Balance -1501 ml 720 ml -30 ml -150 ml Intake Oral 720 ml 970 ml Output Urine Total 1500 ml 0 ml 1000 ml 150 ml Stool Total 1 ml # Voids 4 3 # Bowel Movements 1 0 0 Result Diagram: 10/02/17 0405 10/02/17 0405 Objective Remarks O. CONSTITUTIONAL/GEN: This is a pleasant, polite, very tanned man sitting up comfortably in bed eating his breakfast. EYES: conjunctiva normal, EOMI. ENT: Mouth and pharynx normal. LUNGS: clear A-P, respiratory effort is normal. CARDIOVASCULAR: RR without murmur or gallop. No significant edema. GI/ABD: soft without masses, without organomegaly. NEURO: No focal deficits SKIN: There are numerous healing ulcerations on both legs and the sanchez area. Superficial scratches on the forehead and right side of the face are healing well. HEME/LYMPH: no bruising or petechia. MUSC: Upper extremities are clawlike in appearance. There is a area of slight superficial desquamation of the skin (with underlying redness, no drainage) on the posterior hand. Bilateral lower extremities are slightly edematous, much improved from previous examination. No calf swelling, redness, or tenderness.Patient is able to move all of his toes. PSYCH/MENTAL STATUS: Alert, appropriate interaction with interviewer. A/P Assessment and Plan Patient is a 52 y/o homeless man admitted for significant LE edema and recent fall. Discharge Planning Today Problem List: (1) Lower extremity edema ICD Codes: R60.0 - Localized edema Status: Acute Plan: Bilateral and symmetric BNP and LFTs w/in normal limits CT of brain,ECG , bilateral LE dopplers showed no acute abnormalities WBC slightly elevated on admission, decreased normal limits over the course of treatment (12.3) ESR 56 on admission Diff: venous stasis dermatitis v reaction to prolonged sun exposure v cellulitis Has significantly improved Last dose of Lasix 20 mg BID today (10/01-10/03) Con't Keflex 500 mg Q6H for 8 more days for a total of 10 days of treatment Will provide mupirocin ointment for superficial lesion on the lower extremity to prevent infection (2) History of recent fall ICD Codes: Z91.81 - History of falling Status: Acute Plan: Occurred once May have been secondary to incidental slip PT recommends no further PT or assistance with ambulation (3) Diarrhea ICD Codes: R19.7 - Diarrhea, unspecified Status: Acute Plan: Occurring in the last 4 days per patient report 1 normal BM in between I would be concerned if symptoms occur longer than a week because patient is asymptomatic No electrolyte abnormalities on CMP Stool studies were ordered but sample was not obtained Low likelihood for infectious cause at this time. Patient will need to follow- up w/a PCP to further evaluate (4) Abrasion, face without infection ICD Codes: S00.81XA - Abrasion of other part of head, initial encounter Status: Acute Plan: T/d booster given in the ED Healing well (5) Homeless ICD Codes: Z59.0 - Homelessness Status: Chronic Plan: Patient is homeless and on disability. Has Medicare. Case management consulted. Will help provide bus pass for patient on discharge. Plans to return to the streets or [place] until his next bill comes in and he is able to pay for a place. Does not have a PCP yet, but plans to make an appointment with the [facility] in 1 week. The appropriate information has been provided. (6) DM2 (diabetes mellitus, type 2) ICD Codes: E11.9 - Type 2 diabetes mellitus without complications Status: Chronic Plan: A1C from 10/02 = 6.5 Bedside and fasting glucose levels have been less than 180; thus, do not warrant inpatient treatment or control at this time Patient will need to follow-up with a provider to further monitor or manage. (7) FEN Plan: Nutrition: Regular Diet Electrolytes: not indicated Fluids: PO DVT prophy: Lovenox q24H Problem Qualifiers (1) Diarrhea: Qualified Codes: R19.7 - Diarrhea, unspecified (2) DM2 (diabetes mellitus, type 2): Qualified Codes: E11.8 - Type 2 diabetes mellitus with unspecified complications Oriana Boateng MD R1 Oct 03, 2017 11:44
[2017-10-04] MEDS ORDERED: LOMO2.5T PO (01:44)
[2017-10-05 08:46] LABS: METHYLMALONIC ACID 0.24 nmol/mL (<=0.40)
== END 2017-10-03 14:07 | disposition home or self-care (01) ==
LOC: NEPE 07:43 → NEDA 11:05 → INTOOBSV 11:05 → N05A 13:15
PROVIDERS: ADMIT Family Medicine; ATTEND Family Medicine
DX: R60.0 Localized edema (principal); S00.81XA Abrasion of other part of head, initial encounter; R53.1 Weakness; M79.89 Other specified soft tissue disorders; M21.232 Flexion deformity, left wrist; M21.231 Flexion deformity, right wrist; R41.82 Altered mental status, unspecified; R19.7 Diarrhea, unspecified; E11.9 Type 2 diabetes mellitus without complications; Y92.830 Public park as the place of occurrence of the external cause; K21.9 Gastro-esophageal reflux disease without esophagitis; R04.0 Epistaxis; I11.0 Hypertensive heart disease with heart failure; I50.9 Heart failure, unspecified; Z59.0 Homelessness; W19.XXXA Unspecified fall, initial encounter; Z91.81 History of falling; Z23 Encounter for immunization
CPT/HCPCS: 70450; 71045; 80053; 80307; 81001; 82140; 82550; 82552; 82607; 83036; 83605; 83735; 83880; 83921; 84100; 84425; 84443; 85025; 85652; 90471; 90714; 93005; 93970; 96374; 97161; 99285; G0378; G8987; G8988; J1650; J1940

== ENCOUNTER 2017-10-03 21:44 | Emergency (ER) | payer OTHER ==
[~2017-10-03] VITALS: Ht 175.3 cm; Wt 102.0 kg
[~2017-10-03 21:44] MED LIST changes: +CEPH-460 PO; +MUPI2OIN TOPICAL
[2017-10-03 21:58] VITALS: BP 120/69; PULSE 104; RESP 18; TEMP 98; O2SAT 99
[2017-10-04] MEDS ORDERED: DIPHENOXYLATE/ATROPINE 2.5 MG/0.025 MG TAB PO ONE
[2017-10-04] MEDS ORDERED: SODIUM CHLOR 0.9% 1000 ML INJ 1,000 ML IV ONE
[2017-10-04 01:24] LABS: AUTOMATED NEUTROPHIL # 7.5 TH/MM3 (1.8-7.7); BASOPHIL # 0.1 TH/MM3 (0-0.2); BASOPHIL % 0.7 % (0.0-2.0); EOSINOPHIL # 0.2 TH/MM3 (0-0.4); EOSINOPHIL % 1.6 % (0.0-4.0); HEMATOCRIT 34.4 % (39.0-51.0); HEMOGLOBIN 11.7 GM/DL (13.0-17.0); LYMPH % 12.1 % (9.0-44.0); LYMPHOCYTE # 1.2 TH/MM3 (1.0-4.8); MEAN CELL VOLUME 84.6 FL (80.0-100.0); MEAN CORPUSCULAR HEMOGLOBIN 28.7 PG (27.0-34.0); MEAN CORPUSCULAR HGB CONC 33.9 % (32.0-36.0); MEAN PLATELET VOLUME 9.4 FL (7.0-11.0); MONO % 12.2 % (0.0-8.0); MONOCYTE # 1.3 TH/MM3 (0-0.9); NEUT % 73.4 % (16.0-70.0); PLATELET COUNT 270 TH/MM3 (150-450); RED BLOOD COUNT 4.07 MIL/MM3 (4.50-5.90); RED CELL DISTRIBUTION WIDTH 13.4 % (11.6-17.2); WHITE BLOOD COUNT 10.3 TH/MM3 (4.0-11.0)
[2017-10-04 01:39] LABS: ALT (GPT) 51 U/L (12-78); AST (GOT) 34 U/L (15-37); BICARBONATE 27.1 MEQ/L (21.0-32.0); BLOOD UREA NITROGEN 23 MG/DL (7-18); CHLORIDE 99 MEQ/L (98-107); CREATININE 1.11 MG/DL (0.60-1.30); GLOMERULAR FILTRATION RATE 70 ML/MIN (>89); GLUCOSE,RANDOM 148 MG/DL (74-106); SODIUM (NA) 136 MEQ/L (136-145)
--- NOTE | 2017-10-04 01:40 | PD ---
HPI Chief Complaint: GI Complaint Time Seen by Provider: 23:47 Travel History International Travel<30 days: No Contact w/Intl Traveler<30days: No Traveled to known affect area: No History of Present Illness HPI 52-year-old white male returns to the ER after being just discharged 2 hours prior. The patient states that when he was discharged he had diarrhea. He states that he has had several episodes since being discharged. He states that he has had some intermittent abdominal cramping. Symptoms are mild to moderate. No exacerbating activity. No alleviating activity. He denies any fever chills. The patient was admitted earlier yesterday for chest pain evaluation which was negative for heart disease. The patient is currently homeless. He has chronic upper extremity weakness from a back injury. PFSH Past Medical History Arthritis: No Asthma: No Heart Rhythm Problems: No Cardiovascular Problems: No High Cholesterol: No Chest Pain: No Congestive Heart Failure: Yes COPD: No Cerebrovascular Accident: No Diabetes: Yes (States has not taken diabetes medicine for 3-4 days; Not sure what he takes) Patient Takes Glucophage: No Diminished Hearing: No GERD: Yes Genitourinary: No Headaches: No Hepatitis: No Hiatal Hernia: No Hypertension: Yes Musculoskeletal: No Psychiatric: Yes (CHRONIC PARANOID SCHIZOPHRENIA) Reproductive: No Respiratory: No Myocardial Infarction: No Schizophrenia: Yes Seizures: No Ulcer: No Tetanus Vaccination: < 5 Years Past Surgical History Surgical History: No Previous Surgery Appendectomy: No Social History Alcohol Use: No Tobacco Use: No Substance Use: No Allergies-Medications (Allergen,Severity, Reaction): Coded Allergies: No Known Allergies (Verified Allergy, Unknown, 10/03/17) Reported Meds & Prescriptions Reported Meds & Active Scripts Active Lomotil (Diphenoxylate-Atropine) 2.5-0.025 Mg Tab 1 Tab PO Q6H PRN Mupirocin Topical (Mupirocin) 2 % Oint 1 Applic TOPICAL TID 3 Days Apply to site of wound three times a day for three days. Keflex (Cephalexin) 500 Mg Capsule 500 Mg PO QID Review of Systems General / Constitutional: No: Fever Eyes: No: Visual changes HENT: No: Headaches Cardiovascular: No: Chest Pain or Discomfort Respiratory: No: Shortness of Breath Gastrointestinal: Positive: Diarrhea, Abdominal Pain, Changes in Bowel Habits, No: Nausea, Vomiting Genitourinary: No: Dysuria Musculoskeletal: Positive: Weakness, No: Pain Skin: No Rash Neurologic: No: Weakness Psychiatric: No: Depression Endocrine: No: Polydipsia Hematologic/Lymphatic: No: Easy Bruising Physical Exam Narrative GENERAL: This is a well-nourished, well-developed patient, in no apparent distress. SKIN: Chronic venous stasis changes to the lower extremities. Warm and dry. HEAD: Atraumatic. Normocephalic. EYES: PERRL, EOMI, no discharge or injection. No scleral icterus. EARS: Clear NOSE: Nasal turbinates appear normal. THROAT: Mucosa pink and moist. Airway patent. NECK: Trachea midline. supple, moves head freely. LUNGS: Clear to auscultation. CV: Regular in rhythm. ABDOMEN: Soft nontender. Obese. No guarding or rebound. Normal active bowel sounds. EXT: Patient has chronic edema of the lower extremities with venous stasis changes. Patient has chronic contracture deformities of the upper extremities from prior back injury. Data Data Last Documented VS Vital Signs Date Time Temp Pulse Resp B/P (MAP) Pulse Ox O2 Delivery O2 Flow Rate FiO2 10/03/17 21:58 98.0 104 18 120/69 (86) 99 Orders Orders Complete Blood Count With Diff (10/03/17 23:52) Comprehensive Metabolic Panel (10/03/17 23:52) Iv Access Insert/Monitor (10/03/17 23:52) Sodium Chlor 0.9% 1000 Ml Inj (Ns 1000 M (10/04/17 00:00) Diphenoxylate/Atropine Tab (Lomotil Tab) (10/04/17 00:00) Ed Discharge Order (10/04/17 01:44) Labs Laboratory Tests Test 10/04/17 01:00 White Blood Count 10.3 TH/MM3 Red Blood Count 4.07 MIL/MM3 Hemoglobin 11.7 GM/DL Hematocrit 34.4 % Mean Corpuscular Volume 84.6 FL Mean Corpuscular Hemoglobin 28.7 PG Mean Corpuscular Hemoglobin Concent 33.9 % Red Cell Distribution Width 13.4 % Platelet Count 270 TH/MM3 Mean Platelet Volume 9.4 FL Neutrophils (%) (Auto) 73.4 % Lymphocytes (%) (Auto) 12.1 % Monocytes (%) (Auto) 12.2 % Eosinophils (%) (Auto) 1.6 % Basophils (%) (Auto) 0.7 % Neutrophils # (Auto) 7.5 TH/MM3 Lymphocytes # (Auto) 1.2 TH/MM3 Monocytes # (Auto) 1.3 TH/MM3 Eosinophils # (Auto) 0.2 TH/MM3 Basophils # (Auto) 0.1 TH/MM3 CBC Comment DIFF FINAL Differential Comment Blood Urea Nitrogen 23 MG/DL Creatinine 1.11 MG/DL Random Glucose 148 MG/DL Total Protein 7.2 GM/DL Albumin 3.0 GM/DL Calcium Level 9.0 MG/DL Alkaline Phosphatase 69 U/L Aspartate Amino Transf (AST/SGOT) 34 U/L Alanine Aminotransferase (ALT/SGPT) 51 U/L Total Bilirubin 0.4 MG/DL Sodium Level 136 MEQ/L Potassium Level 4.0 MEQ/L Chloride Level 99 MEQ/L Carbon Dioxide Level 27.1 MEQ/L Anion Gap 10 MEQ/L Estimat Glomerular Filtration Rate 70 ML/MIN MDM Medical Decision Making Medical Screen Exam Complete: Yes Emergency Medical Condition: Yes Medical Record Reviewed: Yes Interpretation(s) Laboratory Tests Test 10/04/17 01:00 White Blood Count 10.3 TH/MM3 Red Blood Count 4.07 MIL/MM3 Hemoglobin 11.7 GM/DL Hematocrit 34.4 % Mean Corpuscular Volume 84.6 FL Mean Corpuscular Hemoglobin 28.7 PG Mean Corpuscular Hemoglobin Concent 33.9 % Red Cell Distribution Width 13.4 % Platelet Count 270 TH/MM3 Mean Platelet Volume 9.4 FL Neutrophils (%) (Auto) 73.4 % Lymphocytes (%) (Auto) 12.1 % Monocytes (%) (Auto) 12.2 % Eosinophils (%) (Auto) 1.6 % Basophils (%) (Auto) 0.7 % Neutrophils # (Auto) 7.5 TH/MM3 Lymphocytes # (Auto) 1.2 TH/MM3 Monocytes # (Auto) 1.3 TH/MM3 Eosinophils # (Auto) 0.2 TH/MM3 Basophils # (Auto) 0.1 TH/MM3 CBC Comment DIFF FINAL Differential Comment Blood Urea Nitrogen 23 MG/DL Creatinine 1.11 MG/DL Random Glucose 148 MG/DL Total Protein 7.2 GM/DL Albumin 3.0 GM/DL Calcium Level 9.0 MG/DL Alkaline Phosphatase 69 U/L Aspartate Amino Transf (AST/SGOT) 34 U/L Alanine Aminotransferase (ALT/SGPT) 51 U/L Total Bilirubin 0.4 MG/DL Sodium Level 136 MEQ/L Potassium Level 4.0 MEQ/L Chloride Level 99 MEQ/L Carbon Dioxide Level 27.1 MEQ/L Anion Gap 10 MEQ/L Estimat Glomerular Filtration Rate 70 ML/MIN Differential Diagnosis Differential diagnosis: Infectious diarrhea, electrolyte abnormality, viral diarrhea, dehydration, malingering Narrative Course IV access is obtained. Patient was given a liter bolus normal saline. Routine laboratory tests of analysis. Patient given 2 Lomotil p.o. The patient laboratory tests have been reviewed. The patient is nontoxic- appearing. He is taking p.o. without vomiting. He has had Lomotil for diarrhea. I see no indication for antibiotics at this time. Patient is advised to follow-up and return if worsening. This is diarrhea Diagnosis Primary Impression: Diarrhea Qualified Codes: R19.7 - Diarrhea, unspecified Patient Instructions: General Instructions Additional Instructions: Rest. Increase fluids. Lomotil for diarrhea. Follow-up with a primary care doctor in the next 2-3 days for recheck. Return to the ER if any problems. Scripts Diphenoxylate-Atropine (Lomotil) 2.5-0.025 Mg Tab 1 TAB PO Q6H Y for DIARRHEA, #6 TAB 0 Refills Prov: Yovany Cantu MD 10/04/17 Disposition: 01 DISCHARGE HOME Condition: Stable Darius Umanzor Oct 04, 2017 01:40
[2017-10-04 01:41] LABS: ALKALINE PHOSPHATASE 69 U/L (45-117); TOTAL BILIRUBIN ADULT 0.4 MG/DL (0.2-1.0); TOTAL PROTEIN 7.2 GM/DL (6.4-8.2)
[2017-10-04] MEDS ORDERED: LOMO2.5T PO (01:44)
== END 2017-10-04 02:02 | disposition home or self-care (01) ==
LOC: NEPD 21:44
DX: R19.7 Diarrhea, unspecified (principal); R10.9 Unspecified abdominal pain; E11.9 Type 2 diabetes mellitus without complications; I10 Essential (primary) hypertension; K21.9 Gastro-esophageal reflux disease without esophagitis; Z79.84 Long term (current) use of oral hypoglycemic drugs; Z86.59 Personal history of other mental and behavioral disorders; Z86.79 Personal history of other diseases of the circulatory system
CPT/HCPCS: 80053; 85025; 99283; J7030

== ENCOUNTER 2017-10-04 03:58 | Emergency (ER) | payer OTHER ==
[~2017-10-04 03:58] MED LIST changes: -GLIM1 PO; -GLUCTAB PO; +LOMO2.5T PO; -ZYPR15TA PO
[2017-10-04 04:07] VITALS: BP 126/78; PULSE 84; RESP 18; TEMP 98.2; O2SAT 96
== END 2017-10-04 04:43 | disposition left against medical advice (07) ==
LOC: NEPD 03:58
DX: Z00.00 Encounter for general adult medical examination without abnormal findings (principal); Z53.21 Procedure and treatment not carried out due to patient leaving prior to being seen by health care provider
CPT/HCPCS: 99281

== ENCOUNTER 2017-10-10 07:20 | Inpatient (IN) | payer OTHER, MEDICARE ==
[~2017-10-10] VITALS: Ht 175.3 cm; Wt 95.4 kg
[2017-10-10] VITALS (7 sets, daily range): BP systolic 112–153; BP diastolic 58–86; PULSE 101–108; RESP 16–18; TEMP 97.5–98.9; O2SAT 94–100
[2017-10-10] MEDS ORDERED: IOHEXOL 350 MG/ML 10 ML VIAL (for RAD DIAG) IVCONTRAST ONE (07:21)
[2017-10-10 07:54] LABS: AUTOMATED NEUTROPHIL # 11.1 TH/MM3 (1.8-7.7); BASOPHIL % 0.3 % (0.0-2.0); EOSINOPHIL % 0.2 % (0.0-4.0); HEMATOCRIT 37.3 % (39.0-51.0); HEMOGLOBIN 12.5 GM/DL (13.0-17.0); LYMPH % 6.2 % (9.0-44.0); LYMPHOCYTE # 0.8 TH/MM3 (1.0-4.8); MEAN CELL VOLUME 83.6 FL (80.0-100.0); MEAN CORPUSCULAR HGB CONC 33.5 % (32.0-36.0); MEAN PLATELET VOLUME 9.6 FL (7.0-11.0); MONOCYTE # 0.6 TH/MM3 (0-0.9); NEUT % 88.3 % (16.0-70.0); PLATELET COUNT 371 TH/MM3 (150-450); RED BLOOD COUNT 4.46 MIL/MM3 (4.50-5.90); WHITE BLOOD COUNT 12.6 TH/MM3 (4.0-11.0)
[2017-10-10] MEDS ORDERED: SODIUM CHLOR 0.9% 1000 ML INJ 1,000 ML IV ONE ×2 (08:04→09:45)
[2017-10-10 08:12] LABS: ALBUMIN 3.5 GM/DL (3.4-5.0); ALT (GPT) 42 U/L (12-78); AST (GOT) 20 U/L (15-37); BICARBONATE 23.6 MEQ/L (21.0-32.0); BLOOD UREA NITROGEN 24 MG/DL (7-18); CALCIUM 9.7 MG/DL (8.5-10.1); CHLORIDE 97 MEQ/L (98-107); CREATININE 1.22 MG/DL (0.60-1.30); GLOMERULAR FILTRATION RATE 63 ML/MIN (>89); GLUCOSE,RANDOM 149 MG/DL (74-106); SODIUM (NA) 133 MEQ/L (136-145)
[2017-10-10 08:14] LABS: ALKALINE PHOSPHATASE 89 U/L (45-117); TOTAL BILIRUBIN ADULT 0.7 MG/DL (0.2-1.0); TOTAL PROTEIN 8.3 GM/DL (6.4-8.2)
[2017-10-10] MEDS ORDERED: SODIUM CHLORIDE 0.9% FLUSH 10 ML FLUSH IVF PRN (08:15)
--- NOTE | 2017-10-10 08:56 | PD ---
HPI . Stomach problems Chief Complaint: GI Complaint Time Seen by Provider: 08:04 Travel History International Travel<30 days: No Contact w/Intl Traveler<30days: No Traveled to known affect area: No History of Present Illness HPI Patient presents with a chief complaint of his stomach turning. He states that he was recently admitted to the hospital and has had problems with his stomach since being discharged. He reports uncontrollable diarrhea. He also reports urinary incontinence. He states that he has been trying to eat but that, when he eats, he either vomits or has diarrhea. Symptoms are mild to moderate. There are no modifying factors. He states that he has been seen here since his discharge from the hospital on the for the diarrhea and has been given a medication which has not helped. Records reveal that he was here on the and then again on the within a few hours of each other for the complaint of diarrhea. On the first visit, he was given a prescription. EVAC reported on the return visit that the patient had thrown the prescription in the street. On the second visit, he left before being seen by physician. He was admitted here 10/01-10/03 for altered mental status, bilateral lower extremity edema and facial abrasions. On presentation, he reported that he fell off of a park bench. This patient is homeless. [facility] Past Medical History Arthritis: No Asthma: No Heart Rhythm Problems: No Cardiovascular Problems: No High Cholesterol: No Chest Pain: No Congestive Heart Failure: Yes COPD: No Cerebrovascular Accident: No Diabetes: Yes (States has not taken diabetes medicine for 3-4 days; Not sure what he takes) Patient Takes Glucophage: No Diminished Hearing: No GERD: Yes Genitourinary: No Headaches: No Hepatitis: No Hiatal Hernia: No Hypertension: Yes Musculoskeletal: No Psychiatric: Yes (CHRONIC PARANOID SCHIZOPHRENIA) Reproductive: No Respiratory: No Myocardial Infarction: No Schizophrenia: Yes Seizures: No Ulcer: No Influenza Vaccination: Yes Past Surgical History Appendectomy: No Social History Alcohol Use: No Tobacco Use: No Substance Use: No Allergies-Medications (Allergen,Severity, Reaction): Coded Allergies: No Known Allergies (Verified Allergy, Unknown, 10/10/17) Reported Meds & Prescriptions Reported Meds & Active Scripts Active No Active Prescriptions or Reported Medications Review of Systems Except as stated in HPI: all other systems reviewed are Neg General / Constitutional: No: Fever, Chills Gastrointestinal: Positive: Nausea, Vomiting, Diarrhea, Abdominal Pain, Loss of Appetite Genitourinary: Positive: Incontinence Skin: Positive Lesions Physical Exam Narrative GENERAL: Disheveled man. Malodorous. His feet are filthy. SKIN: warm/dry. His skin is very [place] from proximal to his knees down, his face and his upper extremities. His lower extremities have soupy drainage on both lower legs. He also has some healing abrasions on his face. HEAD: Normocephalic. EYES: Pupils equal and round. No scleral icterus. No injection or drainage. ENT: No nasal bleeding or discharge. Mucous membranes pink and moist. NECK: Trachea midline. Full range of motion without pain.. CARDIOVASCULAR: Regular rate and rhythm. Heart sounds are normal. RESPIRATORY: No accessory muscle use. Clear to auscultation. Breath sounds equal bilaterally. GASTROINTESTINAL: Abdomen soft. Distended. Diffusely tender. Bowel sounds present. MUSCULOSKELETAL: No obvious deformities. 1-2+ pretibial pitting edema. Flexion deformity of both wrists. NEUROLOGICAL: Awake and alert. No obvious cranial nerve deficits. Motor grossly within normal limits. Normal speech. PSYCHIATRIC: Appropriate mood and affect; insight and judgment normal. Data Data Last Documented VS Vital Signs Date Time Temp Pulse Resp B/P (MAP) Pulse Ox O2 Delivery O2 Flow Rate FiO2 10/10/17 11:00 108 18 140/86 (104) 98 Room Air 10/10/17 07:25 97.7 Orders Orders Complete Blood Count With Diff (10/10/17 07:39) Comprehensive Metabolic Panel (10/10/17 07:39) Lactic Acid Sepsis Protocol (10/10/17 07:39) Blood Culture (10/10/17 07:39) Iv Access Insert/Monitor (10/10/17 07:39) Oxygen Administration (10/10/17 07:39) Oximetry (10/10/17 07:39) Blood Glucose (10/10/17 07:39) Urinalysis - C+S If Indicated (10/10/17 08:04) Lipase (10/10/17 08:04) Ct Abd/Pel W Iv Contrast(Rout) (10/10/17 ) Ecg Monitoring (10/10/17 08:04) Sodium Chlor 0.9% 1000 Ml Inj (Ns 1000 M (10/10/17 08:04) Sodium Chloride 0.9% Flush (Ns Flush) (10/10/17 08:15) C Diff Toxin Pcr (10/10/17 08:04) Enteric Path (Stool) (10/10/17 08:04) Wound Culture And Gram Stain (10/10/17 08:06) Wound Culture And Gram Stain (10/10/17 08:10) Iohexol 350 Inj (Omnipaque 350 Inj) (10/10/17 07:21) Cath For Specimen (10/10/17 09:45) Sodium Chlor 0.9% 1000 Ml Inj (Ns 1000 M (10/10/17 09:45) Labs Laboratory Tests Test 10/10/17 07:40 10/10/17 07:45 10/10/17 09:26 10/10/17 11:55 Blood Urea Nitrogen 24 MG/DL Creatinine 1.22 MG/DL Random Glucose 149 MG/DL Total Protein 8.3 GM/DL Albumin 3.5 GM/DL Calcium Level 9.7 MG/DL Alkaline Phosphatase 89 U/L Aspartate Amino Transf (AST/SGOT) 20 U/L Alanine Aminotransferase (ALT/SGPT) 42 U/L Total Bilirubin 0.7 MG/DL Sodium Level 133 MEQ/L Potassium Level 4.1 MEQ/L Chloride Level 97 MEQ/L Carbon Dioxide Level 23.6 MEQ/L Anion Gap 12 MEQ/L Estimat Glomerular Filtration Rate 63 ML/MIN Lipase 81 U/L White Blood Count 12.6 TH/MM3 Red Blood Count 4.46 MIL/MM3 Hemoglobin 12.5 GM/DL Hematocrit 37.3 % Mean Corpuscular Volume 83.6 FL Mean Corpuscular Hemoglobin 28.0 PG Mean Corpuscular Hemoglobin Concent 33.5 % Red Cell Distribution Width 14.0 % Platelet Count 371 TH/MM3 Mean Platelet Volume 9.6 FL Neutrophils (%) (Auto) 88.3 % Lymphocytes (%) (Auto) 6.2 % Monocytes (%) (Auto) 5.0 % Eosinophils (%) (Auto) 0.2 % Basophils (%) (Auto) 0.3 % Neutrophils # (Auto) 11.1 TH/MM3 Lymphocytes # (Auto) 0.8 TH/MM3 Monocytes # (Auto) 0.6 TH/MM3 Eosinophils # (Auto) 0.0 TH/MM3 Basophils # (Auto) 0.0 TH/MM3 CBC Comment DIFF FINAL Differential Comment Lactic Acid Level 1.6 mmol/L Stool C. difficile Toxin (PCR) NEGATIVE Stl C. difficile Toxin Epiderm 027 PRESUMPTIVE NEGATIVE Urine Color YELLOW Urine Turbidity CLEAR Urine pH 6.0 Urine Specific [place] GREATER THAN 1.050 Urine Protein 30 mg/dL Urine Glucose (UA) NEG mg/dL Urine Ketones 40 mg/dL Urine Occult Blood NEG Urine Nitrite NEG Urine Bilirubin NEG Urine Urobilinogen 2.0 MG/DL Urine Leukocyte Esterase NEG Urine WBC 1 /hpf Urine Squamous Epithelial Cells <1 /hpf Microscopic Urinalysis Comment CULT NOT INDICATED MDM Medical Decision Making Medical Screen Exam Complete: Yes Emergency Medical Condition: Yes Medical Record Reviewed: Yes (On his recent admission, he had bilateral lower extremity ultrasounds which were negative. He also had a CT of his head which was negative. The remainder of his workup was basically unremarkable.) Differential Diagnosis Differential diagnosis of diarrhea includes but is not limited to early enteritis, bacterial enteritis, antibiotic induced diarrhea, irritable bowel syndrome My differential diagnosis includes but is not limited to localized wound infection, cellulitis, abscess Narrative Course This patient presents basically with 2 problems. He reports profound diarrhea for about the last week. It is associated with abdominal distention and decreased ability to eat. Routine abdominal pain labs are pending as is a CT of his abdomen and pelvis. In addition, he has soupy discharge from both lower extremities. Wound cultures have been ordered. Septic workup is in process. CBC Diagram 10/10/17 07:45 BMP Diagram 10/10/17 07:40 Total Protein 8.3 #H, Albumin 3.5, Calcium Level 9.7, Alkaline Phosphatase 89, Aspartate Amino Transf (AST/SGOT) 20, Alanine Aminotransferase (ALT/SGPT) 42, Total Bilirubin 0.7 Last Impressions Abdomen/Pelvis CT 10/10/17 0000 Signed Impressions: Service Date/Time: Tuesday, October 10, 2017 08:50 - CONCLUSION: 1. Nonspecific bowel gas pattern with some moderately dilated loops of small bowel filled with air and fluid. No definite transition zone. This may be a diffuse small bowel ileus versus an early partial distal small bowel obstruction.. 2. Otherwise, unremarkable examination. Sahil Donnelly MD UA is negative Physician Communication Physician Communication Dr. Olmedo Diagnosis Primary Impression: Abdominal pain Qualified Codes: R10.84 - Generalized abdominal pain Additional Impressions: Diarrhea Qualified Codes: R19.7 - Diarrhea, unspecified early SBO versis ileus Admitting Information Admitting Physician Requests: Observation Scripts No Active Prescriptions or Reported Meds Condition: Monika Wood MD October 10, 2017 08:56
--- NOTE | 2017-10-10 09:54 | RADRPT ---
EXAM DATE/TIME: 10/10/2017 08:50 [facility] COMPARISON: No previous studies available for comparison. INDICATIONS : Bilateral lower quadrant pain, diarrhea. IV CONTRAST: 96 cc Omnipaque 350 (iohexol) IV ORAL CONTRAST: No oral contrast ingested. RADIATION DOSE: 11.78 CTDIvol (mGy) MEDICAL HISTORY : Gastroesophageal reflux disease. Congestive heart failure. SURGICAL HISTORY : None. ENCOUNTER: Initial ACUITY: 2 days PAIN SCALE: 6/10 LOCATION: Left lower quadrant TECHNIQUE: Volumetric scanning of the abdomen and pelvis was performed. Using automated exposure control and ad justment of the mA and/or kV according to patient size, radiation dose was kept as low as reasonably achievable to obtain optimal diagnostic quality images. DICOM format image data is available electro nically for review and comparison. FINDINGS: LOWER LUNGS: The visualized lower lungs are clear. LIVER: Homogeneous density without lesion. There is no dilation of the biliary tree. No calcified gallston es. SPLEEN: Normal size without lesion. PANCREAS: Within normal limits. KIDNEYS: Normal in size and shape. There is no mass, stone or hydronephrosis. ADRENAL GLANDS: Within normal limits. VASCULAR: There is no aortic aneurysm. BOWEL/MESENTERY: There are some moderately dilated loops of air-filled and fluid-filled small bowel. The colon is nond ilated with some air and stool. No free air is seen. No free fluid is seen. The appendix is grossly u nremarkable. No inflammatory changes are demonstrated. ABDOMINAL WALL: Within normal limits. RETROPERITONEUM: There is no lymphadenopathy. BLADDER: No wall thickening or mass. REPRODUCTIVE: Within normal limits. INGUINAL: There is no lymphadenopathy or hernia. MUSCULOSKELETAL: Within normal limits for patient age. CONCLUSION: 1. Nonspecific bowel gas pattern with some moderately dilated loops of small bowel filled with air an d fluid. No definite transition zone. This may be a diffuse small bowel ileus versus an early partial distal small bowel obstruction.. 2. Otherwise, unremarkable examination. Sahil Donnelly MD on October 10, 2017 at 9:46 Board Certified Radiologist. This report was verified electronically.
[2017-10-10 12:13] LABS: BILIRUBIN, URINE NEG (NEG); BLOOD, URINE NEG (NEG); GLUCOSE,URINE NEG (NEG); KETONE, URINE 40 mg/dL (NEG); NITRITE,URINE NEG (NEG); SQUAMOUS EPITHELIAL CELL URINE <1 /hpf (0-5); URINE COLOR YELLOW (YELLW/STRAW); URINE LEUKOCYTE ESTERASE NEG (NEG)
[2017-10-10] MEDS ORDERED: SODIUM CHLOR 0.9% 1000 ML INJ 1,000 ML IV SCH (12:43)
[2017-10-10] MEDS ORDERED: ONDANSETRON HCL 4 MG/2 ML VIAL IVP PRN (12:45)
[2017-10-10] MEDS ORDERED: LACTULOSE SYRUP 20 GM/30 ML CUP PO PRN (12:45)
[2017-10-10] MEDS ORDERED: SENNOSIDES 8.6 MG TAB PO PRN (12:45)
[2017-10-10] MEDS ORDERED: SODIUM CHLORIDE 0.9% FLUSH 10 ML FLUSH IV FLUSH PRN (12:45)
[2017-10-10] MEDS ORDERED: BISACODYL 10 MG SUPP RECTAL PRN (12:45)
[2017-10-10] MEDS ORDERED: NALOXONE HCL 0.4 MG/ML AMP IV PUSH PRN (12:45)
[2017-10-10] MEDS ORDERED: MAGNESIUM HYDROXIDE SUSP 30 ML CUP PO PRN (12:45)
--- NOTE | 2017-10-10 15:24 | PD.CONS ---
HPI History of Present Illness This is a 52 year old male who entered the hospital on 10/10/2017 with symptoms of uncontrollable diarrhea for approximately 2 weeks. He notes the diarrhea stools are dark and sometimes sticky. Patient also notes some dyspepsia or possible dysphasia with certain foods like breads. He states the bread hard to swallow and immediately coughs or vomits back with increased mucus in his mouth. Onset of this symptom is also approximately 2 weeks. Patient notes generalized mild to moderate lower abdominal pain and cramping which seems to occur with the diarrhea but also around the time that he is eating. Patient does note gas and bloating which waxes and wanes and may or may not be around eating time. Patient is homeless and admits to eating a lot of fast food or whatever food he can get. He states that he migrated back to this area around September 14 from [place], and lived here as a child. He denies any constipation any fever or chills. Patient was here on the and 04 October with some of the same symptoms of diarrhea and abdominal pain but was unable to feel any prescriptions that were given to him according to the record. Currently on exam abdomen is taut, and positive sore some mild distention and cramping to light palpation. No known previous EGD or colonoscopy, and no known family history of colon cancer. According to the record patient does have a history of GERD, but has not been taking any routine medications. CT scan was performed on 10/10/2017 when patient was admitted findings includes nonspecific bowel gas pattern with some moderately dilated loops of small bowel with air and fluid. No definite transition zone. This may be a diffuse small bowel ileus versus an early partial distal small bowel obstruction .otherwise unremarkable exam. (Kajal Streeter) [facility] Past Medical History Congestive heart failure Lower extremity edema GERD Chronic paranoid schizophrenia according to the record Past Surgical History Appendectomy (Kajal Streeter) Coded Allergies: No Known Allergies (Verified Allergy, Unknown, 10/10/17) Family History No family history of colon cancer Social History Homeless, [place] area September 14, 2017 No tobacco, no alcohol, and no illicit drugs (Kajal Streeter) Review of Systems Gastrointestinal: COMPLAINS OF: Abdominal pain, Black stools, Diarrhea, Nausea , Vomiting, Difficulty Swallowing (Kajal Streeter) GI Exam Vitals I&O Vital Signs Date Time Temp Pulse Resp B/P (MAP) Pulse Ox O2 Delivery O2 Flow Rate FiO2 10/10/17 14:32 97.6 102 18 118/69 (85) 98 10/10/17 14:16 10/10/17 13:36 102 18 138/61 (86) 98 Room Air 10/10/17 11:00 108 18 140/86 (104) 98 Room Air 10/10/17 09:33 106 18 148/84 (105) 99 Room Air 10/10/17 07:41 99 Room Air 10/10/17 07:26 17 10/10/17 07:25 97.7 102 17 153/82 (105) 100 I/O 10/09/17 10/09/17 10/09/17 10/10/17 10/10/17 10/10/17 07:00 15:00 23:00 07:00 15:00 23:00 Intake Total 1000 ml Balance 1000 ml Intake IV Total 1000 ml # Bowel Movements 2 Imaging Last Impressions Abdomen/Pelvis CT 10/10/17 0000 Signed Impressions: Service Date/Time: Tuesday, October 10, 2017 08:50 - CONCLUSION: 1. Nonspecific bowel gas pattern with some moderately dilated loops of small bowel filled with air and fluid. No definite transition zone. This may be a diffuse small bowel ileus versus an early partial distal small bowel obstruction.. 2. Otherwise, unremarkable examination. Sahil Donnelly MD Laboratory Test 10/10/17 07:40 10/10/17 07:45 10/10/17 09:26 10/10/17 11:55 Blood Urea Nitrogen 24 MG/DL Creatinine 1.22 MG/DL Random Glucose 149 MG/DL Total Protein 8.3 GM/DL Albumin 3.5 GM/DL Calcium Level 9.7 MG/DL Alkaline Phosphatase 89 U/L Aspartate Amino Transf (AST/SGOT) 20 U/L Alanine Aminotransferase (ALT/SGPT) 42 U/L Total Bilirubin 0.7 MG/DL Sodium Level 133 MEQ/L Potassium Level 4.1 MEQ/L Chloride Level 97 MEQ/L Carbon Dioxide Level 23.6 MEQ/L Anion Gap 12 MEQ/L Estimat Glomerular Filtration Rate 63 ML/MIN Lipase 81 U/L White Blood Count 12.6 TH/MM3 Red Blood Count 4.46 MIL/MM3 Hemoglobin 12.5 GM/DL Hematocrit 37.3 % Mean Corpuscular Volume 83.6 FL Mean Corpuscular Hemoglobin 28.0 PG Mean Corpuscular Hemoglobin Concent 33.5 % Red Cell Distribution Width 14.0 % Platelet Count 371 TH/MM3 Mean Platelet Volume 9.6 FL Neutrophils (%) (Auto) 88.3 % Lymphocytes (%) (Auto) 6.2 % Monocytes (%) (Auto) 5.0 % Eosinophils (%) (Auto) 0.2 % Basophils (%) (Auto) 0.3 % Neutrophils # (Auto) 11.1 TH/MM3 Lymphocytes # (Auto) 0.8 TH/MM3 Monocytes # (Auto) 0.6 TH/MM3 Eosinophils # (Auto) 0.0 TH/MM3 Basophils # (Auto) 0.0 TH/MM3 CBC Comment DIFF FINAL Differential Comment Lactic Acid Level 1.6 mmol/L Stool C. difficile Toxin (PCR) NEGATIVE Stl C. difficile Toxin Epiderm 027 PRESUMPTIVE NEGATIVE Urine Color YELLOW Urine Turbidity CLEAR Urine pH 6.0 Urine Specific [place] GREATER THAN 1.050 Urine Protein 30 mg/dL Urine Glucose (UA) NEG mg/dL Urine Ketones 40 mg/dL Urine Occult Blood NEG Urine Nitrite NEG Urine Bilirubin NEG Urine Urobilinogen 2.0 MG/DL Urine Leukocyte Esterase NEG Urine WBC 1 /hpf Urine Squamous Epithelial Cells <1 /hpf Microscopic Urinalysis Comment CULT NOT INDICATED Date/Time Source Procedure Growth Status 10/10/17 07:45 Blood Peripheral Aerobic Blood Culture Pending Received 10/10/17 07:45 Blood Peripheral Anaerobic Blood Culture Pending Received 10/10/17 13:54 Stool Stool Cryptosporidium Exam Pending Received 10/10/17 13:54 Stool Stool Giardia Antigen (WILLIAM) Pending Received Physical Examination HEENT: Pupils round and reactive to light; normocephalic; atraumatic; no obvious jaundice NECK: Neck is supple CHEST: Generalized diminished breath sounds especially in his bases, no obvious wheezing or rhonchi CARDIAC: Rhythm borderline tachycardia, 102-108 ABDOMEN: taut, notes some gaseous bloating and distention which is often known and seems to be worse with eating . no hepatosplenomegaly; bowel sounds are soft but present EXTREMITIES: Bilateral 2+ edema. With some skin peeling. SKIN: Very dry, crockett with peeling, no jaundice. SLAGGER: Simple answers, fair historian (Kajal Streeter) Assessment and Plan Plan 52-year-old male with symptoms approximately 2 weeks of abdominal pain and bloating, accompanied with some nausea and vomiting especially when trying to eat bread. Patient has symptoms of this hypoxia and possible dysphasia but just describes bread as hard to swallow. States that he could swallow sausage and meats without any problem. Diarrhea off and on for 2 weeks states stools are dark and sticky, but does not recognize any blood. Patient does have a history of GERD but takes no medications history of CHF and +2+ bilateral lower extremity edema noted. Looks as if patient does not wear any shoes Diarrhea could be related to partial ileus/obstruction. Patient was here on October 03 and with some of the same symptoms, was given prescriptions but never had any meds filled. States he did feel better after they gave him some diarrhea medicine. Current CT scan done on 10/10/2017 shows nonspecific bowel gas pattern with some moderately dilated loops of small bowel filled with air and fluid. This may be a diffuse small bowel ileus versus a early partial distal small bowel obstruction otherwise unremarkable exam. Patient's symptoms seem to be related to GERD as well as possible ileus/ obstruction. Plan N.p.o. for now, will trial some ice chips Consider IV hydration Monitor labs Upper GI series Antiemetics Protonix IV Further recommendations to follow Patient was seen by myself and Dr. Foreman note was written on his behalf (Kajal Streeter) Plan Patient was seen and examined, agree with above note, we will see what is the result of the upper GI series and make a decision after that (Greg Foreman MD) Kajal Streeter October 10, 2017 15:24 Greg Foreman MD October 10, 2017 22:05
--- NOTE | 2017-10-10 16:07 | RADRPT ---
EXAM DATE/TIME: 10/10/2017 15:26 [facility] COMPARISON: No previous studies available for comparison. INDICATIONS : Vomiting, epigastric pain. FLUORO TIME: 1.3 minutes IMAGE COUNT: 25 CONTRAST: 1. E-Z HD Barium Sulfate (98% w/w) MEDICAL HISTORY : Gastroesophageal reflux disease. Congestive heart failure. SURGICAL HISTORY : None. ENCOUNTER: Initial ACUITY: 1 month PAIN SCORE: 5/10 LOCATION: Bilateral upper quadrant FINDINGS: Preliminary film demonstrates some air-filled loops of small and large bowel.. Examination of the swallowing function demonstrates no evidence of aspiration or penetration. The segundo dy of the esophagus is unremarkable. There is a small sliding hiatal hernia with moderate gastroesoph ageal reflux in the supine position. The reflux extends from the GE junction up to the thoracic inlet . Examination of the stomach demonstrates no evidence of intraluminal mass or extrinsic compression. T he gastric volume appears normal and there are no findings of ulceration. The mucosal pattern appear s normal. Gastric motility is within normal limits. The pylorus is unremarkable. The duodenal bulb and sweep appear normal. The visualized small bowel is unremarkable. CONCLUSION: 1. Small sliding hiatal hernia 2. Moderate gastroesophageal reflux in the supine position. Sahil Donnelly MD on October 10, 2017 at 16:03 Board Certified Radiologist. This report was verified electronically.
[2017-10-10] MEDS ORDERED: FINA5TAB2 (18:12)
[2017-10-10] MEDS ORDERED: [UNRECOGNIZED DRUG - CODE] PO (18:12)
[2017-10-10] MEDS ORDERED: METO1TAB9 PO (18:12)
[2017-10-10] MEDS ORDERED: AMLO2.5T PO (18:12)
[2017-10-10] MEDS ORDERED: METF500T4 PO (18:12)
[2017-10-10] MEDS ORDERED: DIVA125T (18:12)
[2017-10-10] MEDS ORDERED: TAMS0.4C4 (18:12)
[2017-10-10] MEDS ORDERED: ABIL15TA3 PO (18:12)
[2017-10-10] MEDS: SODIUM CHLOR 0.9% 1000 ML INJ 1,000 ML IV SCH (19:00)
[2017-10-10] MEDS ORDERED: Vancomycin Consult Pharmacy 1 EA OTHER SCH (19:45)
[2017-10-10] MEDS ORDERED: VANCOMYCIN INJ 1,000 MG in SODIUM CHLOR 0.9% 250 ML INJ 250 ML IV ONE (19:45)
--- NOTE | 2017-10-10 19:56 | HHI.HP ---
HPI Service [facility] Primary Care Physician No Primary Care Physician Admission Diagnosis abd pain, diarrhea, ileus vs. early SBO Diagnoses: Travel History International Travel<30 Days: No Contact w/Intl Traveler <30 Da: No Traveled to Known Affected Are: No History of Present Illness 52-year-old male with a history of schizophrenia, hypertension, diabetes, who recently traveled from [place] 1 month ago having lived in an SNF for 2 years , presents with a one-month history of loose watery diarrhea, gradually worsening diffuse crampy, nonradiating intermittent abdominal pain. He also reports a one-month history of bilateral lower extremity edema. He does report one-month history of nausea and vomiting, only with solid foods. Patient is now a good historian in regards to medications. He is currently homeless. He does however remember the name and number of his previous SNF which she [id number]. History is extrapolated from medication list received from SNF. Patient has been homeless for the past month. Previous admission last month for bilateral lower extremity cellulitis. Review of Systems Except as stated in HPI: all other systems reviewed are Neg Past Family Social History Past Medical History Hypertension Diabetes Schizophrenia BPH patient specifically denies CHF. Denies heart problems. Past Surgical History Appendectomy Reported Medications Patient reports being on medications, however is unable to remember the names of medications. This received from previous SNF Tamsulosin 0.4 mg at bedtime Metoprolol 50 mg by mouth twice a day Amlodipine 25 mg by mouth daily Divalproex 125 mg by mouth twice a day Duloxetine 60 mg by mouth at bedtime Abilify 50 mg by mouth daily Metformin 5 mg by mouth 3 times a day Finasteride 5 mg at bedtime Allergies: Coded Allergies: No Known Allergies (Verified Allergy, Unknown, 10/10/17) Family History Mother secondary to cancer. Father from unknown causes. Social History Homeless, recently migrated back to his [place] from [place] area September 14, 2017 No tobacco, no alcohol, and no illicit drugs Physical Exam Vital Signs Vital Signs Date Time Temp Pulse Resp B/P (MAP) Pulse Ox O2 Delivery O2 Flow Rate FiO2 10/10/17 16:36 97.5 108 18 114/58 (76) 95 10/10/17 14:32 97.6 102 18 118/69 (85) 98 10/10/17 14:16 10/10/17 13:36 102 18 138/61 (86) 98 Room Air 10/10/17 11:00 108 18 140/86 (104) 98 Room Air 10/10/17 09:33 106 18 148/84 (105) 99 Room Air 10/10/17 07:41 99 Room Air 10/10/17 07:26 17 10/10/17 07:25 97.7 102 17 153/82 (105) 100 Physical Exam GENERAL: This is a well-nourished, well-developed patient, in no apparent distress. SKIN: No rashes, ecchymoses or lesions. Cool and dry. HEAD: Atraumatic. Normocephalic. No temporal or scalp tenderness. EYES: Pupils equal round and reactive. Extraocular motions intact. No scleral icterus. No injection or drainage. ENT: Nose without bleeding, purulent drainage or septal hematoma. Throat without erythema, tonsillar hypertrophy or exudate. Uvula midline. Airway patent. NECK: Trachea midline. No JVD or lymphadenopathy. Supple, nontender, no meningeal signs. CARDIOVASCULAR: Regular rate and rhythm without murmurs, gallops, or rubs. RESPIRATORY: Clear to auscultation. Breath sounds equal bilaterally. No wheezes , rales, or rhonchi. GASTROINTESTINAL: Abdomen soft, non-tender, nondistended. No hepato-splenomegaly , or palpable masses. No guarding. MUSCULOSKELETAL: Extremities without clubbing, cyanosis, or edema. No joint tenderness, effusion, or edema noted. No calf tenderness. Negative Homans sign bilaterally. NEUROLOGICAL: Awake and alert. Cranial nerves II through XII intact. Motor and sensory grossly within normal limits. Five out of 5 muscle strength in all muscle groups. Normal speech. Laboratory Laboratory Tests Test 10/10/17 07:40 10/10/17 07:45 10/10/17 09:26 10/10/17 11:55 Blood Urea Nitrogen 24 Creatinine 1.22 Random Glucose 149 Total Protein 8.3 Albumin 3.5 Calcium Level 9.7 Alkaline Phosphatase 89 Aspartate Amino Transf (AST/SGOT) 20 Alanine Aminotransferase (ALT/SGPT) 42 Total Bilirubin 0.7 Sodium Level 133 Potassium Level 4.1 Chloride Level 97 Carbon Dioxide Level 23.6 Anion Gap 12 Estimat Glomerular Filtration Rate 63 Lipase 81 White Blood Count 12.6 Red Blood Count 4.46 Hemoglobin 12.5 Hematocrit 37.3 Mean Corpuscular Volume 83.6 Mean Corpuscular Hemoglobin 28.0 Mean Corpuscular Hemoglobin Concent 33.5 Red Cell Distribution Width 14.0 Platelet Count 371 Mean Platelet Volume 9.6 Neutrophils (%) (Auto) 88.3 Lymphocytes (%) (Auto) 6.2 Monocytes (%) (Auto) 5.0 Eosinophils (%) (Auto) 0.2 Basophils (%) (Auto) 0.3 Neutrophils # (Auto) 11.1 Lymphocytes # (Auto) 0.8 Monocytes # (Auto) 0.6 Eosinophils # (Auto) 0.0 Basophils # (Auto) 0.0 CBC Comment DIFF FINAL Differential Comment Lactic Acid Level 1.6 Stool C. difficile Toxin (PCR) NEGATIVE Stl C. difficile Toxin Epiderm 027 PRESUMPTIVE NEGATIVE Urine Color YELLOW Urine Turbidity CLEAR Urine pH 6.0 Urine Specific [place] GREATER THAN 1.050 Urine Protein 30 Urine Glucose (UA) NEG Urine Ketones 40 Urine Occult Blood NEG Urine Nitrite NEG Urine Bilirubin NEG Urine Urobilinogen 2.0 Urine Leukocyte Esterase NEG Urine WBC 1 Urine Squamous Epithelial Cells <1 Microscopic Urinalysis Comment CULT NOT INDICATED Date/Time Source Procedure Growth Status 10/10/17 07:45 Blood Peripheral Aerobic Blood Culture Pending Received 10/10/17 07:45 Blood Peripheral Anaerobic Blood Culture Pending Received 10/10/17 13:54 Stool Stool Cryptosporidium Exam Pending Received 10/10/17 13:54 Stool Stool Giardia Antigen (WILLIAM) Pending Received Result Diagram: 10/10/17 0745 10/10/17 0740 Imaging Last Impressions Upper GI Series 10/10/17 0000 Signed Impressions: Service Date/Time: Tuesday, October 10, 2017 15:26 - CONCLUSION: 1. Small sliding hiatal hernia 2. Moderate gastroesophageal reflux in the supine position. Sahil Donnelly MD Abdomen/Pelvis CT 10/10/17 0000 Signed Impressions: Service Date/Time: Tuesday, October 10, 2017 08:50 - CONCLUSION: 1. Nonspecific bowel gas pattern with some moderately dilated loops of small bowel filled with air and fluid. No definite transition zone. This may be a diffuse small bowel ileus versus an early partial distal small bowel obstruction.. 2. Otherwise, unremarkable examination. MD Corinne Bailey VTE Risk Assessment Caprini VTE Risk Assessment: No/Low Risk (score <= 1) Caprini Risk Assessment Model Point Value = 1 Point Value = 2 Point Value = 3 Point Value = 5 Age 41-60 Minor surgery BMI > 25 kg/m2 Swollen legs Varicose veins or History of unexplained or recurrent spontaneous Oral contraceptives or hormone replacement Sepsis (< 1 month) Serious lung disease, including pneumonia (< 1 month) Abnormal pulmonary function Acute myocardial infarction Congestive heart failure (< 1 month) History of inflammatory bowel disease Medical patient at bed rest Age 61-74 Arthroscopic surgery Major open surgery (> 45 min) Laparoscopic surgery (> 45 min) Malignancy Confined to bed (> 72 hours) Immobilizing plaster cast Central venous access Age >= 75 History of VTE Family history of VTE Factor V Leiden Prothrombin [id number] Lupus anticoagulant Anticardiolipin antibodies Elevated serum homocysteine Heparin-induced thrombocytopenia Other congenital or acquired thrombophilia Stroke (< 1 month) Elective arthroplasty Hip, pelvis, or leg fracture Acute spinal cord injury (< 1 month) Prophylaxis Regimen Total Risk Factor Score Risk Level Prophylaxis Regimen 0-1 Low Early ambulation 2 Moderate Order ONE of the following: *Sequential Compression Device (SCD) *Heparin 5000 units SQ BID 3-4 Higher Order ONE of the following medications: *Heparin 5000 units SQ TID *Enoxaparin/Lovenox 40 mg SQ daily (WT < 150 kg, CrCl > 30 mL/min) *Enoxaparin/Lovenox 30 mg SQ daily (WT < 150 kg, CrCl > 10-29 mL/min) *Enoxaparin/Lovenox 30 mg SQ BID (WT < 150 kg, CrCl > 30 mL/min) AND/OR *Sequential Compression Device (SCD) 5 or more Highest Order ONE of the following medications: *Heparin 5000 units SQ TID (Preferred with Epidurals) *Enoxaparin/Lovenox 40 mg SQ daily (WT < 150 kg, CrCl > 30 mL/min) *Enoxaparin/Lovenox 30 mg SQ daily (WT < 150 kg, CrCl > 10-29 mL/min) *Enoxaparin/Lovenox 30 mg SQ BID (WT < 150 kg, CrCl > 30 mL/min) AND *Sequential Compression Device (SCD) Assessment and Plan Assessment and Plan //Intractable diarrhea //Diffuse abdominal pain //CT abdomen with possible small bowel obstruction versus ileus -C. difficile negative. -IV fluids. Consult gastroenterology. Appreciate assistance. We'll order stool studies. //Sepsis. Echocardiogram, leukocytosis. Bilateral lower extremity cellulitis, left worse than right. Also with possible colitis Lactate within normal limits. Start on IV antibiotics for coverage of diabetic cellulitis left lower extremity. ESR = Follow-up cultures. //Bilateral lower extremity edema with venous stasis cellulitis -Ultrasound ordered. Antibiotics as above. //History of BPH. Patient denies any issues currently. Continue finasteride. Hold off on Flomax for now. Will monitor closely. //Diabetes = Recent A1c 6.5. No need for insulin sliding scale. We will order diabetic diet when restarted. //History of hypertension. Blood pressure acceptable. Hold off on restarting home medications. //Schizophrenia = Patient has been off his medication for 1 month. He appears to be conversing appropriately. We'll hold off on restarting psychiatry medications right now. Discussed Condition With patient, nurse, ED physician. Physician Certification 2 Midnight Certification Type: Admission for Inpatient Services Order for Inpatient Services The services are ordered in accordance with Medicare regulations or non- Medicare payer requirements, as applicable. In the case of services not specified as inpatient-only, they are appropriately provided as inpatient services in accordance with the 2-midnight benchmark. Estimated LOS (days): 2 days is the estimated time the patient will need to remain in the hospital, assuming treatment plan goals are met and no additional complications. Post-Hospital Plan: Not yet determined Tyler Olmedo MD October 10, 2017 19:55
[2017-10-10] MEDS: SODIUM CHLORIDE 0.9% FLUSH 10 ML FLUSH IV FLUSH SCH (21:12)
[2017-10-10] MEDS: FINASTERIDE 5 MG TAB PO SCH (21:12)
[2017-10-10] MEDS: PIPERACIL-TAZO 3.375 GM PREMIX 50 ML IV SCH (21:12)
[2017-10-10] MEDS ORDERED: VANCOMYCIN INJ 2,500 MG in SODIUM CHLORID 0.9% 500 ML INJ 500 ML IV ONE (22:00)
--- NOTE | 2017-10-10 22:33 | RADRPT ---
EXAM DATE/TIME: 10/10/2017 21:49 [facility] COMPARISON: US LEG BILATERAL VENOUS DOPPLER, October 01, 2017, 14:31. INDICATIONS : Bilateral leg swelling. MEDICAL HISTORY : Hypertension. Gastroesophageal reflux disease. Congestive heart failure. Schizophrenia. Diabetes. SURGICAL HISTORY : None. ENCOUNTER: Subsequent ACUITY: 1 day PAIN SCORE: 5/10 LOCATION: Bilateral legs. TECHNIQUE: Venous ultrasound of the left and right leg was performed from the inguinal ligament to the proximal calf. Real-time, color Doppler and spectral tracing, compression and augmentation techniques were us ed. FINDINGS: RIGHT LEG: There is normal compressibility of the deep venous system from the inguinal region to the proximal ca lf. No echogenic clot is seen in the lumen of the common femoral, femoral, popliteal, and posterior tibial veins. There is a normal response of the venous system to proximal and distal augmentation an d respiration. LEFT LEG: There is normal compressibility of the deep venous system from the inguinal region to the proximal ca lf. No echogenic clot is seen in the lumen of the common femoral, femoral, popliteal, and posterior tibial veins. There is a normal response of the venous system to proximal and distal augmentation an d respiration. CONCLUSION: No DVT in either lower extremity. Castillo Fierro MD on October 10, 2017 at 22:26 Board Certified Radiologist. This report was verified electronically.
[2017-10-11 00:39] VITALS: BP 113/63; PULSE 104; RESP 16; TEMP 98; O2SAT 93
[2017-10-11 04:54] VITALS: BP 108/64; PULSE 93; RESP 16; TEMP 98; O2SAT 97
[2017-10-11] MEDS: PIPERACIL-TAZO 3.375 GM PREMIX 50 ML IV SCH ×3 (05:18→21:19)
[2017-10-11] MEDS: SODIUM CHLOR 0.9% 1000 ML INJ 1,000 ML IV SCH ×2 (05:19→09:34)
[2017-10-11 07:28] LABS: AUTOMATED NEUTROPHIL # 5.2 TH/MM3 (1.8-7.7); BASOPHIL % 0.5 % (0.0-2.0); EOSINOPHIL # 0.1 TH/MM3 (0-0.4); EOSINOPHIL % 1.4 % (0.0-4.0); HEMATOCRIT 30.8 % (39.0-51.0); HEMOGLOBIN 10.4 GM/DL (13.0-17.0); LYMPH % 11.9 % (9.0-44.0); LYMPHOCYTE # 0.8 TH/MM3 (1.0-4.8); MEAN CELL VOLUME 84.8 FL (80.0-100.0); MEAN CORPUSCULAR HEMOGLOBIN 28.6 PG (27.0-34.0); MEAN CORPUSCULAR HGB CONC 33.7 % (32.0-36.0); MEAN PLATELET VOLUME 9.8 FL (7.0-11.0); MONO % 10.4 % (0.0-8.0); MONOCYTE # 0.7 TH/MM3 (0-0.9); NEUT % 75.8 % (16.0-70.0); PLATELET COUNT 257 TH/MM3 (150-450); RED BLOOD COUNT 3.63 MIL/MM3 (4.50-5.90); RED CELL DISTRIBUTION WIDTH 13.7 % (11.6-17.2); WHITE BLOOD COUNT 6.9 TH/MM3 (4.0-11.0)
[2017-10-11 08:17] LABS: ALBUMIN 2.5 GM/DL (3.4-5.0); ALKALINE PHOSPHATASE 64 U/L (45-117); ALT (GPT) 29 U/L (12-78); AST (GOT) 23 U/L (15-37); BICARBONATE 22.3 MEQ/L (21.0-32.0); BLOOD UREA NITROGEN 17 MG/DL (7-18); CALCIUM 8.3 MG/DL (8.5-10.1); CHLORIDE 107 MEQ/L (98-107); CREATININE 0.99 MG/DL (0.60-1.30); GLOMERULAR FILTRATION RATE 80 ML/MIN (>89); GLUCOSE,RANDOM 94 MG/DL (74-106); SODIUM (NA) 140 MEQ/L (136-145); TOTAL BILIRUBIN ADULT 0.8 MG/DL (0.2-1.0); TOTAL PROTEIN 6.1 GM/DL (6.4-8.2)
[2017-10-11] MEDS: SODIUM CHLORIDE 0.9% FLUSH 10 ML FLUSH IV FLUSH SCH ×2 (08:26→21:19)
[2017-10-11 08:30] VITALS: BP 123/86; PULSE 94; RESP 16; TEMP 98; O2SAT 98
[2017-10-11] MEDS ORDERED: VANCOMYCIN 1,000 MG/NS 250 ML IV SCH ×2 (09:00)
--- NOTE | 2017-10-11 10:35 | HHI.GIFU ---
Subjective Remarks Pt resting in bed Denies passing gas, has not had any continued diarrhea Still NPO Denies nausea, vomiting, abdominal pain (Marian Carlson) Objective Vitals I&O Vital Signs Date Time Temp Pulse Resp B/P (MAP) Pulse Ox O2 Delivery O2 Flow Rate FiO2 10/11/17 08:30 98.0 94 16 123/86 (98) 98 10/11/17 04:54 98.0 93 16 108/64 (79) 97 10/11/17 00:39 98.0 104 16 113/63 (80) 93 10/10/17 21:42 98.9 101 16 112/68 (83) 94 10/10/17 16:36 97.5 108 18 114/58 (76) 95 10/10/17 14:32 97.6 102 18 118/69 (85) 98 10/10/17 14:16 10/10/17 13:36 102 18 138/61 (86) 98 Room Air 10/10/17 11:00 108 18 140/86 (104) 98 Room Air I/O 10/10/17 10/10/17 10/10/17 10/11/17 10/11/17 10/11/17 07:00 15:00 23:00 07:00 15:00 23:00 Intake Total 2000 ml Balance 2000 ml Intake IV Total 2000 ml # Voids 1 # Bowel Movements 2 1 Laboratory Laboratory Tests Test 10/10/17 11:55 10/10/17 20:56 10/11/17 06:15 Urine Color YELLOW Urine Turbidity CLEAR Urine pH 6.0 Urine Specific [place] GREATER THAN 1.050 Urine Protein 30 Urine Glucose (UA) NEG Urine Ketones 40 Urine Occult Blood NEG Urine Nitrite NEG Urine Bilirubin NEG Urine Urobilinogen 2.0 Urine Leukocyte Esterase NEG Urine WBC 1 Urine Squamous Epithelial Cells <1 Microscopic Urinalysis Comment CULT NOT INDICATED Erythrocyte Sedimentation Rate 34 B-Type Natriuretic Peptide 41 White Blood Count 6.9 Red Blood Count 3.63 Hemoglobin 10.4 Hematocrit 30.8 Mean Corpuscular Volume 84.8 Mean Corpuscular Hemoglobin 28.6 Mean Corpuscular Hemoglobin Concent 33.7 Red Cell Distribution Width 13.7 Platelet Count 257 Mean Platelet Volume 9.8 Neutrophils (%) (Auto) 75.8 Lymphocytes (%) (Auto) 11.9 Monocytes (%) (Auto) 10.4 Eosinophils (%) (Auto) 1.4 Basophils (%) (Auto) 0.5 Neutrophils # (Auto) 5.2 Lymphocytes # (Auto) 0.8 Monocytes # (Auto) 0.7 Eosinophils # (Auto) 0.1 Basophils # (Auto) 0.0 CBC Comment DIFF FINAL Differential Comment Blood Urea Nitrogen 17 Creatinine 0.99 Random Glucose 94 Total Protein 6.1 Albumin 2.5 Calcium Level 8.3 Alkaline Phosphatase 64 Aspartate Amino Transf (AST/SGOT) 23 Alanine Aminotransferase (ALT/SGPT) 29 Total Bilirubin 0.8 Sodium Level 140 Potassium Level 3.2 Chloride Level 107 Carbon Dioxide Level 22.3 Anion Gap 11 Estimat Glomerular Filtration Rate 80 Date/Time Source Procedure Growth Status 10/10/17 07:45 Blood Peripheral Aerobic Blood Culture Pending Received 10/10/17 07:45 Blood Peripheral Anaerobic Blood Culture Pending Received 10/10/17 13:54 Stool Stool Cryptosporidium Exam - Final NEGATIVE - NO CRYPTOSPORIDIUM ANTIGEN... Complete 10/10/17 13:54 Stool Stool Giardia Antigen ([facility]) - Final NEGATIVE - NO GIARDIA ANTIGEN DETECTE... Complete Imaging Last Impressions Upper GI Series 10/10/17 0000 Signed Impressions: Service Date/Time: Tuesday, October 10, 2017 15:26 - CONCLUSION: 1. Small sliding hiatal hernia 2. Moderate gastroesophageal reflux in the supine position. Sahil Donnelly MD Lower Extremity Ultrasound 10/10/17 0000 Signed Impressions: Service Date/Time: Tuesday, October 10, 2017 21:49 - CONCLUSION: No DVT in either lower extremity. Castillo Fierro MD Abdomen/Pelvis CT 10/10/17 0000 Signed Impressions: Service Date/Time: Tuesday, October 10, 2017 08:50 - CONCLUSION: 1. Nonspecific bowel gas pattern with some moderately dilated loops of small bowel filled with air and fluid. No definite transition zone. This may be a diffuse small bowel ileus versus an early partial distal small bowel obstruction.. 2. Otherwise, unremarkable examination. Sahil Donnelly MD Physical Exam HEENT: Normocephalic; atraumatic CHEST: Even/unlabored CARDIAC: RRR ABDOMEN: Distended, semi-firm, nontender, bowel sounds active SKIN: Normal; no rash; no jaundice. 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 (Marian Carlson) Assessment and Plan Plan Assessment: - Diarrhea- Reports of uncontrollable diarrhea x 2 weeks Of note, recently in SNF and currently homeless CT abdomen and pelvis W IV contrast (10/10) --> Nonspecific bowel gas pattern with some moderately dilated loops of small bowel filled with air and fluid. No definite transition zone. This may be a diffuse small bowel ileus vs and early partial distal small bowel obstruction. Reports last colonoscopy a few years ago and states normal exam. - Nausea- denies dysphagia- states when he eats bread he feels as if he can not swallow it so he spits it out, denies food getting stuck Upper GI series with KUB (10/10) --> Small sliding hiatal hernia. Moderate gastroesophageal reflux in the supine position Has never had EGD (10/11) Pt reports no diarrhea over night but also states he has not been passing gas. Currently NPO, he is concerned about eating. Discussed results of upper GI series with him. Advised when he does start eating that he needs to eat smaller meals and not eat close to bedtime or laying down. Will add Protonix. SBFT to rule out obstruction, if negative consider EGD for symptoms of nausea and abdominal bloating. If obstruction, EGD would be high risk due to risk of aspiration. C diff negative. Ova and parasites negative. Anemia noted- H/H currently 10.4/30.8. Hemoccult stool negative. Plan: SBFT Keep NPO until resulted Protonix Further recommendations, possible EGD, depending on results of SBFT Add enteric pathogens stool Further recommendations based on findings of above and clinical course Pt has been seen and examined by myself and Dr. Foreman and this note is written on his behalf (Marian Carlson) Plan Patient was seen and examined, agree with above note, patient had barium in the rectum all the way excluding small bowel obstruction, patient feeling better if he starts having more symptoms unless his symptoms persist then we can do it inpatient (Greg Foreman MD) Marian Carlson October 11, 2017 10:35 Greg Foreman MD October 11, 2017 20:07
[2017-10-11] MEDS ORDERED: PANTOPRAZOLE SODIUM 40 MG VIAL IV PUSH SCH (11:00)
--- NOTE | 2017-10-11 12:01 | RADRPT ---
EXAM DATE/TIME: 10/11/2017 11:08 [facility] COMPARISON: No previous studies available for comparison. 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 Obstruction. MEDICAL HISTORY : Hypertension. Gastroesophageal reflux disease. Congestive heart failure. Schizophrenia. Diabetes. SURGICAL HISTORY : None. ENCOUNTER: Subsequent ACUITY: 2 days PAIN SCORE: 0/10 LOCATION: abdomen FINDINGS: Foundry Equipment Mechanic view for Gastrografin small bowel series was performed. The patient had upper GI series yester day with barium and there is dense barium seen in the right colon and some scattered areas of barium in the left colon and rectum. No residual barium seen in the small bowel. Small bowel loops measure up to 3.6 cm in dimension. CONCLUSION: 1. Barium from yesterday's upper GI has passed to the right colon and some has passed to the rectum. This excludes small bowel obstruction. 2. Persistent gas distended loops of small bowel measuring up to 3.6 cm. 3. Due to the residual barium, recommend deferring small bowel series until the barium has cleared. Bala Dukes MD on October 11, 2017 at 11:56 Board Certified Radiologist. This report was verified electronically.
[2017-10-11 12:35] VITALS: BP 131/83; PULSE 96; RESP 16; TEMP 98.1; O2SAT 96
[2017-10-11 15:17] VITALS: BP 124/85; PULSE 91; RESP 16; TEMP 98.3; O2SAT 98
--- NOTE | 2017-10-11 15:37 | HHI.PR ---
Subjective Remarks Seen this morning. Says he is feeling all right. Denies any chest pain shortness of breath. Denies any bowel movement. Ports abdominal discomfort improving. Says any solid food makes his pain worse. Objective Vital Signs Date Time Temp Pulse Resp B/P (MAP) Pulse Ox O2 Delivery O2 Flow Rate FiO2 10/11/17 15:17 98.3 91 16 124/85 (98) 98 10/11/17 12:35 98.1 96 16 131/83 (99) 96 10/11/17 08:30 98.0 94 16 123/86 (98) 98 10/11/17 04:54 98.0 93 16 108/64 (79) 97 10/11/17 00:39 98.0 104 16 113/63 (80) 93 10/10/17 21:42 98.9 101 16 112/68 (83) 94 10/10/17 16:36 97.5 108 18 114/58 (76) 95 I/O 10/10/17 10/10/17 10/10/17 10/11/17 10/11/17 10/11/17 07:00 15:00 23:00 07:00 15:00 23:00 Intake Total 2000 ml 300 ml Balance 2000 ml 300 ml Intake IV Total 2000 ml 300 ml # Voids 1 # Bowel Movements 2 1 Result Diagram: 10/11/1715 10/11/17 06 Objective Remarks GENERAL: Patient lying in bed. Appears comfortable. Alert and oriented 3. SKIN: Warm and dry. All lower extremity anterior sanchez colitis improved today, with faint erythema, some broken skin on anterior sanchez, however no pus. HEAD: Normocephalic. EYES: No scleral icterus. No injection or drainage. NECK: Supple, trachea midline. No JVD. CARDIOVASCULAR: Regular rate and rhythm without murmurs, gallops, or rubs. RESPIRATORY: Breath sounds equal bilaterally. No accessory muscle use. GASTROINTESTINAL: Abdomen soft, non-tender, nondistended. MUSCULOSKELETAL: No cyanosis, or edema. BACK: Nontender without obvious deformity. No CVA tenderness. A/P Assessment and Plan //Intractable diarrhea //Diffuse abdominal pain //CT abdomen with possible small bowel obstruction versus ileus -C. difficile negative. -IV fluids. Consult gastroenterology. Appreciate assistance. We'll order stool studies. = 10/11. Follow-up stool studies. Appreciate GI assistance. Workup pending. Follow-up GI recommendations. //Sepsis. Echocardiogram, leukocytosis. Bilateral lower extremity cellulitis, left worse than right. Also with possible colitis Lactate within normal limits. Start on IV antibiotics for coverage of diabetic cellulitis left lower extremity. ESR = Follow-up cultures. = Leukocytosis improved. Tachycardia improving. ESR 34. Continue antibiotics for bilateral lower extremity cellulitis. //Bilateral lower extremity edema with venous stasis cellulitis -Ultrasound ordered. Antibiotics as above. = 10/11. Ultrasound negative for DVT. Continue antibiotics as above. Improving //History of BPH. Patient denies any issues currently. Continue finasteride. Hold off on Flomax for now. Will monitor closely. = 10/11. No current issues. Hold off on BPH medications due to blood pressure. Continue to monitor. //Diabetes = Recent A1c 6.5. No need for insulin sliding scale. We will order diabetic diet when restarted. = N.p.o. currently. Will order diabetic diet when ready. //Hypokalemia. 3.2. Add potassium to IV fluids. Recheck tomorrow. //History of hypertension. Blood pressure acceptable. Hold off on restarting home medications. //Schizophrenia = Patient has been off his medication for 1 month. He appears to be conversing appropriately. We'll hold off on restarting psychiatry medications right now. Discharge Planning Pending gastroenterology clearance. Tyler Olmedo MD October 11, 2017 15:37
[2017-10-11 20:39] VITALS: BP 129/75; PULSE 95; RESP 17; TEMP 98
[2017-10-11] MEDS: FINASTERIDE 5 MG TAB PO SCH (21:19)
[2017-10-11] MEDS: POTASSIUM CHLORIDE INJ 40 MEQ in SODIUM CHLOR 0.9% 1000 ML INJ 1,000 ML IV SCH (21:19)
[2017-10-11] MEDS: VANCOMYCIN INJ 1,500 MG in SODIUM CHLORID 0.9% 500 ML INJ 500 ML IV SCH (23:40)
[2017-10-12 00:55] VITALS: BP 118/62; PULSE 99; RESP 16; TEMP 98.2; O2SAT 95
[2017-10-12 04:23] VITALS: BP 111/68; PULSE 92; RESP 16; TEMP 98.8; O2SAT 96
[2017-10-12] MEDS: PIPERACIL-TAZO 3.375 GM PREMIX 50 ML IV SCH ×2 (04:37→12:34)
[2017-10-12 05:12] LABS: AUTOMATED NEUTROPHIL # 3.9 TH/MM3 (1.8-7.7); BASOPHIL % 0.8 % (0.0-2.0); EOSINOPHIL # 0.1 TH/MM3 (0-0.4); EOSINOPHIL % 2.3 % (0.0-4.0); HEMATOCRIT 31.1 % (39.0-51.0); HEMOGLOBIN 10.4 GM/DL (13.0-17.0); LYMPH % 15.2 % (9.0-44.0); LYMPHOCYTE # 0.8 TH/MM3 (1.0-4.8); MEAN CELL VOLUME 85.1 FL (80.0-100.0); MEAN CORPUSCULAR HEMOGLOBIN 28.5 PG (27.0-34.0); MEAN CORPUSCULAR HGB CONC 33.5 % (32.0-36.0); MEAN PLATELET VOLUME 9.7 FL (7.0-11.0); MONO % 9.3 % (0.0-8.0); MONOCYTE # 0.5 TH/MM3 (0-0.9); NEUT % 72.4 % (16.0-70.0); PLATELET COUNT 245 TH/MM3 (150-450); RED BLOOD COUNT 3.65 MIL/MM3 (4.50-5.90); WHITE BLOOD COUNT 5.4 TH/MM3 (4.0-11.0)
[2017-10-12 05:22] LABS: ALBUMIN 2.5 GM/DL (3.4-5.0); BICARBONATE 20.1 MEQ/L (21.0-32.0); CALCIUM 8.3 MG/DL (8.5-10.1); CREATININE 0.93 MG/DL (0.60-1.30); MAGNESIUM 2.1 MG/DL (1.5-2.5); PHOSPHORUS 2.6 MG/DL (2.5-4.9)
[2017-10-12 08:40] VITALS: BP 122/79; PULSE 88; RESP 18; TEMP 97.6; O2SAT 98
[2017-10-12] MEDS ORDERED: PHARMACY ORDERED LAB ONE (08:45)
--- NOTE | 2017-10-12 08:45 | HHI.GIFU ---
Subjective Remarks Pt having BMs Denies abdominal pain, nausea, vomiting States he is hungry (Marian Carlson) Objective Vitals I&O Vital Signs Date Time Temp Pulse Resp B/P (MAP) Pulse Ox O2 Delivery O2 Flow Rate FiO2 10/12/17 08:40 97.6 88 18 122/79 (93) 98 10/12/17 04:23 98.8 92 16 111/68 (82) 96 10/12/17 00:55 98.2 99 16 118/62 (80) 95 10/11/17 20:39 98.0 95 17 129/75 (93) 10/11/17 15:17 98.3 91 16 124/85 (98) 98 10/11/17 12:35 98.1 96 16 131/83 (99) 96 I/O 10/11/17 10/11/17 10/11/17 10/12/17 10/12/17 10/12/17 07:00 15:00 23:00 07:00 15:00 23:00 Intake Total 300 ml Balance 300 ml Intake IV Total 300 ml # Voids 1 # Bowel Movements 1 Laboratory Laboratory Tests Test 10/12/17 03:57 White Blood Count 5.4 Red Blood Count 3.65 Hemoglobin 10.4 Hematocrit 31.1 Mean Corpuscular Volume 85.1 Mean Corpuscular Hemoglobin 28.5 Mean Corpuscular Hemoglobin Concent 33.5 Red Cell Distribution Width 14.0 Platelet Count 245 Mean Platelet Volume 9.7 Neutrophils (%) (Auto) 72.4 Lymphocytes (%) (Auto) 15.2 Monocytes (%) (Auto) 9.3 Eosinophils (%) (Auto) 2.3 Basophils (%) (Auto) 0.8 Neutrophils # (Auto) 3.9 Lymphocytes # (Auto) 0.8 Monocytes # (Auto) 0.5 Eosinophils # (Auto) 0.1 Basophils # (Auto) 0.0 CBC Comment DIFF FINAL Differential Comment Blood Urea Nitrogen 12 Creatinine 0.93 Random Glucose 60 Albumin 2.5 Calcium Level 8.3 Phosphorus Level 2.6 Magnesium Level 2.1 Sodium Level 143 Potassium Level 3.4 Chloride Level 109 Carbon Dioxide Level 20.1 Anion Gap 14 Estimat Glomerular Filtration Rate 86 Date/Time Source Procedure Growth Status 10/10/17 07:45 Blood Peripheral Aerobic Blood Culture - Preliminary NO GROWTH IN 1 DAY Resulted 10/10/17 07:45 Blood Peripheral Anaerobic Blood Culture - Preliminary NO GROWTH IN 1 DAY Resulted 10/10/17 13:54 Stool Stool Cryptosporidium Exam - Final NEGATIVE - NO CRYPTOSPORIDIUM ANTIGEN... Complete 10/10/17 13:54 Stool Stool Giardia Antigen ([facility]) - Final NEGATIVE - NO GIARDIA ANTIGEN DETECTE... Complete Imaging Last Impressions Abdomen X-Ray 10/11/17 0000 Signed Impressions: Service Date/Time: October 11:08 - CONCLUSION: 1. Barium from yesterday's upper GI has passed to the right colon and some has passed to the rectum. This excludes small bowel obstruction. 2. Persistent gas distended loops of small bowel measuring up to 3.6 cm. 3. Due to the residual barium, recommend deferring small bowel series until the barium has cleared. Bala Dukes MD Upper GI Series 10/10/17 0000 Signed Impressions: Service Date/Time: Tuesday, October 10, 2017 15:26 - CONCLUSION: 1. Small sliding hiatal hernia 2. Moderate gastroesophageal reflux in the supine position. Sahil Donnelly MD Lower Extremity Ultrasound 10/10/17 0000 Signed Impressions: Service Date/Time: Tuesday, October 10, 2017 21:49 - CONCLUSION: No DVT in either lower extremity. Castillo Fierro MD Abdomen/Pelvis CT 10/10/17 0000 Signed Impressions: Service Date/Time: Tuesday, October 10, 2017 08:50 - CONCLUSION: 1. Nonspecific bowel gas pattern with some moderately dilated loops of small bowel filled with air and fluid. No definite transition zone. This may be a diffuse small bowel ileus versus an early partial distal small bowel obstruction.. 2. Otherwise, unremarkable examination. Sahil Donnelly MD Physical Exam HEENT: Normocephalic; atraumatic CHEST: Even/unlabored CARDIAC: RRR ABDOMEN: Distended, semi-firm, nontender, bowel sounds active SKIN: Normal; no rash; no jaundice. SYSTEMS CHECKOUT MECHANIC: No focal deficits; alert and oriented times three. (Marian Carlson) Assessment and Plan Plan Assessment: - Diarrhea- Reports of uncontrollable diarrhea x 2 weeks Of note, recently in SNF and currently homeless CT abdomen and pelvis W IV contrast (10/10) --> Nonspecific bowel gas pattern with some moderately dilated loops of small bowel filled with air and fluid. No definite transition zone. This may be a diffuse small bowel ileus vs and early partial distal small bowel obstruction. Reports last colonoscopy a few years ago and states normal exam. - Nausea- denies dysphagia- states when he eats bread he feels as if he can not swallow it so he spits it out, denies food getting stuck Upper GI series with KUB (10/10) --> Small sliding hiatal hernia. Moderate gastroesophageal reflux in the supine position Has never had EGD (10/11) Pt reports no diarrhea over night but also states he has not been passing gas. Currently NPO, he is concerned about eating. Discussed results of upper GI series with him. Advised when he does start eating that he needs to eat smaller meals and not eat close to bedtime or laying down. Will add Protonix. SBFT to rule out obstruction, if negative consider EGD for symptoms of nausea and abdominal bloating. If obstruction, EGD would be high risk due to risk of aspiration. C diff negative. Ova and parasites negative. Anemia noted- H/H currently 10.4/30.8. Hemoccult stool negative. (10/12) --> Pt denies any GI symptoms, states he is hungry. Still NPO, will advance his diet to full liquid and if tolerating can be advanced at lunch to regular diet. Plan: Full liquid diet Advance to regular diet at lunch if tolerating Protonix If symptoms controlled can do EGD outpatient [place] to [place] if tolerating regular food Pt has been seen and examined by myself and Dr. Foreman and this note is written on his behalf (Marian Carlson) Plan Patient was seen and examined, agree with above note, doing better, will advance diet as tolerated, if he is okay he can be discharged home (Greg Foreman MD) Marian Carlson October 12, 2017 08:45 Greg Foreman MD October 12, 2017 22:40
[2017-10-12] MEDS: POTASSIUM CHLORIDE INJ 40 MEQ in SODIUM CHLOR 0.9% 1000 ML INJ 1,000 ML IV SCH ×2 (09:12→15:24)
[2017-10-12] MEDS: SODIUM CHLORIDE 0.9% FLUSH 10 ML FLUSH IV FLUSH SCH ×2 (09:12→21:45)
[2017-10-12] MEDS: PANTOPRAZOLE SOD 40 MG DELAYED RELEASE TAB PO SCH ×2 (09:12→21:44)
[2017-10-12] MEDS: VANCOMYCIN INJ 1,500 MG in SODIUM CHLORID 0.9% 500 ML INJ 500 ML IV SCH (10:19)
--- NOTE | 2017-10-12 11:18 | PD.WCN.NOT ---
Wound Consult Description: Consult for WOUND MANAGEMENT of BL Leg wounds per Dr Olmedo Communicated with: VIRGINIA Rodriguez Patient Dr Olmedo Recommendation: Assist in bathing patient please. Cleanse bilateral lower extremities with mild soap and warm water Q3D and PRN for dislodgement or saturation of dressings. Apply Optifoam AG to open wounds on lower extremities and secure with rolled gauze and tape. Please do not put tape on patient skin. Continue to elevate legs while in bed. Additional Information: Patient seen for ~1.5 hours this morning for lower extremity wounds. Bilateral lower legs, from knees to toes, were thoroughly cleansed with mild soap and warm water. Skin was dried thoroughly. Patient appears to have diffuse full and partial thickness skin loss noted to left lower extremity measuring a surface area of 19cm x 13cm x 0.2cm (0.2cm being the deepest of any wound). Wounds appear to be of mixed etiology as evidenced by the shiny tight hairless legs with healed wounds noted to right lateral malleolus and gaiter areas with patient stating edema previously with dependent position. Per patient, edema tends to resolve when lower legs are elevated and tingle/burn when ambulating. Right lower anterior extremity has a fissure like wound measuring 0.3cm x 2cm x <0.1cm with scant clear exudate noted, dried sanguinous exudate with shiny, erythematous, tight, edematous intact skin noted to periwound. Patient states that the [place] sun is different than the [place] sun and may have gotten a sun burn recently while being homeless. Patient tolerated the cleansing of lower extremities fairly, explaining the amount of time that was spent in patient room. Sarah Mac [facility] October 12, 2017 11:18
[2017-10-12 11:37] VITALS: BP 107/71; PULSE 102; RESP 20; TEMP 98; O2SAT 98
[2017-10-12 15:01] VITALS: BP 113/66; PULSE 93; RESP 20; TEMP 97.7; O2SAT 96
--- NOTE | 2017-10-12 16:14 | HHI.PR ---
Subjective Remarks Patient seen this morning. Says he would like to try eating. Denies any chest pain or shortness of breath. Denies abdominal pain. Objective Vital Signs Date Time Temp Pulse Resp B/P (MAP) Pulse Ox O2 Delivery O2 Flow Rate FiO2 10/12/17 15:01 97.7 93 20 113/66 (82) 96 10/12/17 11:37 98.0 102 20 107/71 (83) 98 10/12/17 08:40 97.6 88 18 122/79 (93) 98 10/12/17 04:23 98.8 92 16 111/68 (82) 96 10/12/17 00:55 98.2 99 16 118/62 (80) 95 10/11/17 20:39 98.0 95 17 129/75 (93) I/O 10/11/17 10/11/17 10/11/17 10/12/17 10/12/17 10/12/17 06:59 14:59 22:59 06:59 14:59 22:59 Intake Total 300 ml Balance 300 ml Intake IV Total 300 ml # Voids 1 # Bowel Movements 1 2 Result Diagram: 10/12/17 0357 10/12/17 0357 Objective Remarks GENERAL: Patient lying in bed. Appears comfortable. Alert and oriented 3. SKIN: Warm and dry. Contusion bilateral dermatitis with sloughing skin. Appears improved. HEAD: Normocephalic. EYES: No scleral icterus. No injection or drainage. NECK: Supple, trachea midline. No JVD. CARDIOVASCULAR: Regular rate and rhythm without murmurs, gallops, or rubs. RESPIRATORY: Breath sounds equal bilaterally. No accessory muscle use. GASTROINTESTINAL: Abdomen soft, non-tender, nondistended. MUSCULOSKELETAL: No cyanosis, or edema. BACK: Nontender without obvious deformity. No CVA tenderness. A/P Assessment and Plan //Intractable diarrhea //Diffuse abdominal pain //CT abdomen with possible small bowel obstruction versus ileus -C. difficile negative. -IV fluids. Consult gastroenterology. Appreciate assistance. We'll order stool studies. = 10/11. Follow-up stool studies. Appreciate GI assistance. Workup pending. Follow-up GI recommendations. = 10/12. Stool studies negative. Appreciate GI assistance. Advancing to full liquid diet. //Sepsis. Echocardiogram, leukocytosis. Bilateral lower extremity cellulitis, left worse than right. Also with possible colitis Lactate within normal limits. Start on IV antibiotics for coverage of diabetic cellulitis left lower extremity. ESR = Follow-up cultures. = Leukocytosis improved. Tachycardia improving. ESR 34. Continue antibiotics for bilateral lower extremity cellulitis. //Bilateral lower extremity edema with venous stasis cellulitis -Ultrasound ordered. Antibiotics as above. = /. Ultrasound negative for DVT. Continue antibiotics as above. Improving = 10/12. Switch to Keflex for bilateral lower extremity cellulitis. Appreciate wound care recommendations. //History of BPH. Patient denies any issues currently. Continue finasteride. Hold off on Flomax for now. Will monitor closely. = 10/11. No current issues. Hold off on BPH medications due to blood pressure. Continue to monitor. //Diabetes = Recent A1c 6.5. No need for insulin sliding scale. We will order diabetic diet when restarted. = N.p.o. currently. Will order diabetic diet when ready. //Hypokalemia. 3.2. Add potassium to IV fluids. Recheck tomorrow. = 3.4. Improving. Continue potassium and IV fluids. //History of hypertension. Blood pressure acceptable. Hold off on restarting home medications. //Schizophrenia = Patient has been off his medication for 1 month. He appears to be conversing appropriately. We'll hold off on restarting psychiatry medications right now. Discharge Planning Pending gastroenterology clearance. = Patient would benefit from SNF referral. Tyler Olmedo MD October 12, 2017 16:14
[2017-10-12] MEDS: CEPHALEXIN MONOHYDRATE 500 MG CAP PO SCH (16:20)
[2017-10-12 19:56] VITALS: BP 121/73; PULSE 82; RESP 16; TEMP 97.6; O2SAT 100
[2017-10-12] MEDS: FINASTERIDE 5 MG TAB PO SCH (21:44)
[2017-10-13] VITALS (7 sets, daily range): BP systolic 109–157; BP diastolic 67–97; PULSE 76–89; RESP 16–20; TEMP 97.6–98.5; O2SAT 96–100
[2017-10-13] MEDS: CEPHALEXIN MONOHYDRATE 500 MG CAP PO SCH ×3 (01:11→16:53)
[2017-10-13] MEDS: POTASSIUM CHLORIDE INJ 40 MEQ in SODIUM CHLOR 0.9% 1000 ML INJ 1,000 ML IV SCH (04:43)
[2017-10-13] MEDS ORDERED: PHARMACY ORDERED LAB ONE (08:45)
--- NOTE | 2017-10-13 08:52 | HHI.PR ---
Subjective Remarks The patient is in the chair. Legs with cellulitis with some improvement. Is no fever or chills. Denies nausea vomiting diarrhea constipation. Patient was noted talking with a much urinary people. When asked about the incident patient says she is a [employer] and she talks with the hallways.. Says he does not have a history of schizophrenia. Says he does not have up psychiatry DrVandana Will consult psychiatry for evaluation. Objective Vitals Vital Signs Date Time Temp Pulse Resp B/P (MAP) Pulse Ox O2 Delivery O2 Flow Rate FiO2 10/13/17 08:03 98.2 83 16 126/89 (101) 97 10/13/17 04:00 98.0 86 20 113/74 (87) 97 10/13/17 00:00 97.6 86 20 109/67 (81) 97 10/12/17 19:56 97.6 82 16 121/73 (89) 100 10/12/17 15:01 97.7 93 20 113/66 (82) 96 10/12/17 11:37 98.0 102 20 107/71 (83) 98 I/O 10/12/17 10/12/17 10/12/17 10/13/17 10/13/17 10/13/17 07:00 15:00 23:00 07:00 15:00 23:00 Intake Total 480 ml 1500 ml Output Total 300 ml 1100 ml Balance 180 ml 400 ml Intake Oral 480 ml 480 ml IV Total 1020 ml Output Urine Total 300 ml 1100 ml # Voids 1 # Bowel Movements 2 1 Result Diagram: 10/12/17 0357 10/12/17 0357 Imaging Last Impressions Abdomen X-Ray 10/11/17 0000 Signed Impressions: Service Date/Time: October 11:08 - CONCLUSION: 1. Barium from yesterday's upper GI has passed to the right colon and some has passed to the rectum. This excludes small bowel obstruction. 2. Persistent gas distended loops of small bowel measuring up to 3.6 cm. 3. Due to the residual barium, recommend deferring small bowel series until the barium has cleared. Bala Dukes MD Upper GI Series 10/10/17 0000 Signed Impressions: Service Date/Time: Tuesday, October 10, 2017 15:26 - CONCLUSION: 1. Small sliding hiatal hernia 2. Moderate gastroesophageal reflux in the supine position. Sahil Donnelly MD Lower Extremity Ultrasound 10/10/17 0000 Signed Impressions: Service Date/Time: Tuesday, October 10, 2017 21:49 - CONCLUSION: No DVT in either lower extremity. Castillo Fierro MD Abdomen/Pelvis CT 10/10/17 0000 Signed Impressions: Service Date/Time: Tuesday, October 10, 2017 08:50 - CONCLUSION: 1. Nonspecific bowel gas pattern with some moderately dilated loops of small bowel filled with air and fluid. No definite transition zone. This may be a diffuse small bowel ileus versus an early partial distal small bowel obstruction.. 2. Otherwise, unremarkable examination. Sahil Donnelly MD Objective Remarks GENERAL: Patient lying in bed. Appears comfortable. Alert and oriented 3. SKIN: Warm and dry. Contusion bilateral dermatitis with sloughing skin. Appears improved. HEAD: Normocephalic. EYES: No scleral icterus. No injection or drainage. NECK: Supple, trachea midline. No JVD. CARDIOVASCULAR: Regular rate and rhythm without murmurs, gallops, or rubs. RESPIRATORY: Breath sounds equal bilaterally. No accessory muscle use. GASTROINTESTINAL: Abdomen soft, non-tender, nondistended. MUSCULOSKELETAL: No cyanosis, or edema. BACK: Nontender without obvious deformity. No CVA tenderness. A/P Assessment and Plan Intractable diarrhea Diffuse abdominal pain CT abdomen with possible small bowel obstruction versus ileus C. difficile negative. IV fluids. Consult gastroenterology. Appreciate assistance. We'll order stool studies. 10/11. Follow-up stool studies. Appreciate GI assistance. Workup pending. Follow-up GI recommendations. 10/12. Stool studies negative. Appreciate GI assistance. Advancing to full liquid diet. 10/13 advance diet to diabetic diet. With psychosis consult psych Sepsis Echocardiogram, leukocytosis. Bilateral lower extremity cellulitis, left worse than right. Also with possible colitis Lactate within normal limits. Start on IV antibiotics for coverage of diabetic cellulitis left lower extremity. ESR Follow-up cultures. Leukocytosis improved. Tachycardia improving. ESR 34. Continue antibiotics for bilateral lower extremity cellulitis. Bilateral lower extremity edema with venous stasis cellulitis Ultrasound ordered. Antibiotics as above. 10/11. Ultrasound negative for DVT. Continue antibiotics as above. Improving 10/12. Switch to Keflex for bilateral lower extremity cellulitis. Appreciate wound care recommendations. History of BPH. Patient denies any issues currently. Continue finasteride. Hold off on Flomax for now. Will monitor closely. 10/11. No current issues. Hold off on BPH medications due to blood pressure. Continue to monitor. Diabetes mellitus type 2 Recent A1c 6.5. Accu, insulin sliding scale. Hypokalemia. 3.2. Add potassium to IV fluids. Recheck tomorrow. 3.4. Improving. Continue potassium and IV fluids. History of hypertension. Blood pressure acceptable. Hold off on restarting home medications. Schizophrenia Patient has been off his medication for 1 month. He appears to be conversing appropriately. We'll hold off on restarting psychiatry medications right now. Discharge Planning Pending improvement .consult psych as patient with psychosis Plan for SNF. CM consult for DC plan. Rosy Mack MD October 13, 2017 08:52
[2017-10-13] MEDS: PANTOPRAZOLE SOD 40 MG DELAYED RELEASE TAB PO SCH ×2 (09:38→21:21)
[2017-10-13] MEDS: SODIUM CHLORIDE 0.9% FLUSH 10 ML FLUSH IV FLUSH SCH ×2 (09:39→21:20)
[2017-10-13] MEDS: FINASTERIDE 5 MG TAB PO SCH (21:21)
[2017-10-14] MEDS: CEPHALEXIN MONOHYDRATE 500 MG CAP PO SCH ×3 (01:31→17:45)
[2017-10-14 03:08] VITALS: BP 131/87; PULSE 85; RESP 18; TEMP 98.3; O2SAT 95
[2017-10-14] MEDS: POTASSIUM CHLORIDE INJ 40 MEQ in SODIUM CHLOR 0.9% 1000 ML INJ 1,000 ML IV SCH (05:45)
[2017-10-14 08:00] VITALS: BP 135/70; PULSE 92; RESP 18; TEMP 98.4; O2SAT 99
--- NOTE | 2017-10-14 08:00 | PD.PSY.CON ---
Provisional Diagnosis Admission Date October 10, 2017 at 19:56 Sun I. Schizophrenia chronic paranoid type History of Present Illness Service Psychiatry Consult Requested By Attending MD Reason for Consult Assessment Primary Care Physician No Primary Care Physician HPI Patient is a 52-year-old white male admitted to [place] of complaints of abdominal pain diarrhea for a few weeks. It appears this patient has recently relocated here from [place] about 1 month ago. He states he R than living in an TAD for a few years. Before returning here. He is on disability is somewhat vague for the reasons for the disability though it appears to may be some mental health issues. He states since being back in town and he has been essentially homeless waiting for his check that has recently come and help find himself local TAD. Review of our EMR shows mental health contacts with this gentleman in 2008 and 2009 both the diagnoses of schizophrenia chronic paranoid type with some spiritual type delusions. He is most recently treated with Zyprexa 15 mg twice daily. At this time patient states he does not remember psychiatric hospitalizations. He denies being on any psychotropic medications. He does deny suicidality and homicidality voices or visions. But he does state he went through 10th grade. Then the back and has 3 master's degrees from [employer]. Patient is single and has never been and has no children he has some siblings that live out of state though he is not close to them. The patient is some type of partial spasticity or motor problems with both upper extremities wrists and hands. He denies any alcohol or drug use related to this. Denies any physical or sexual abuse. Denies any mental health history in his family of origin. Patient is oriented to person place time and situation being of visits [facility], [place], [facility], [place] and it is Sunday. We did discuss medications. Patient is willing to go back on Zyprexa 15 mg at at bedtime. I will order that. At this time if the patient does not meet criteria for inpatient psychiatric hospitalization. He does need assistance with finding lodging. I would recommend to the case management at the work with him to find a local [facility] perhaps, depending on his funding, [facility] manner or some similar situation. Thanks for the consult will follow on a as needed basis either by myself or by Dr. Cordon Review of Systems Endocrine: DENIES: Heat/cold intolerance, Polydipsia, Polyuria, Polyphagia Eyes: DENIES: Blurred vision, Diplopia, Eye inflammation, Eye pain, Vision loss , Photosensitivity, Double Vision Ears, nose, mouth, throat: DENIES: Tinnitus, Hearing loss, Vertigo, Nasal discharge, Oral lesions, Throat pain, Hoarseness, Ear Pain, Running Nose, Epistaxis, Sinus Pain, Toothache, Odynophagia Respiratory: DENIES: Apneas, Cough, Snoring, Wheezing, Hemoptysis, Sputum production, Shortness of breath Cardiovascular: COMPLAINS OF: Lower Extremity Edema, DENIES: Chest pain, Palpitations, Syncope, Dyspnea on Exertion, PND, Orthopnea, Claudication Gastrointestinal: COMPLAINS OF: Abdominal pain, Diarrhea Genitourinary: DENIES: Sexual dysfunction, Urinary frequency, Urinary incontinence, Urgency, Hematuria, Dysuria, Nocturia, Penile Discharge, Testicular Pain, Testicular Swelling Musculoskeletal: COMPLAINS OF: Stiffness (Both wrists and hands along with some weakness both upper extremities) Integumentary: DENIES: Abnormal pigmentation, Nail changes, Pruritus, Rash Hematologic/lymphatic: DENIES: Bruising, Lymphadenopathy Immunologic/allergic: DENIES: Eczema, Urticaria Psychiatric: COMPLAINS OF: Delusions (Possible congregation delusions states he has 3 masters degrees from [employer]) Past Family Social History Coded Allergies: No Known Allergies (Verified Allergy, Unknown, 10/10/17) Reported Medications Tamsulosin (Tamsulosin) 0.4 Mg Cap, 0.4 MG HS for Manage Prostate Problems, #30 CAP 0 Refills 10/10/17 Finasteride (Finasteride) 5 Mg Tab, 5 MG HS for Manage Prostate Problems, #30 TAB 0 Refills Do not crush. 10/10/17 Aripiprazole (Abilify) 15 Mg Tab, 15 MG PO DAILY, #30 TAB 0 Refills 10/10/17 Metoprolol Succinate ER 24 HR (Metoprolol Succinate ER 24 HR) 50 Mg Tab, 50 MG PO BID, #30 TAB 0 Refills 10/10/17 Metformin ER (Metformin ER) 500 Mg Neo, 500 MG PO TID for Blood Sugar Management, TAB 0 Refills With evening meal 10/10/[address] (Divalproex DR) 125 Mg Tabdr, 125 MG BID for Control Seizures, # 60 TAB 0 Refills 10/10/17 Amlodipine (Amlodipine) 2.5 Mg Tab, 2.5 MG PO DAILY for Blood Pressure Management, #30 TAB 0 Refills 10/10/17 Duloxetine HCl (Duloxetine HCl) 100 % Powder, 60 MG PO HS 10/10/17 Discontinued Scripts Diphenoxylate-Atropine (Lomotil) 2.5-0.025 Mg Tab, 1 TAB PO Q6H Y for DIARRHEA, #6 TAB 0 Refills Prov:Yovany Cantu MD 10/04/17 Mupirocin Topical (Mupirocin Topical) 2 % Oint, 1 APPLIC TOPICAL TID for Mgmt Bacterial Infection for 3 Days, #1 TUBE 0 Refills Apply to site of wound three times a day for three days. Prov:Oriana Boateng MD R1 10/03/17 Cephalexin (Keflex) 500 Mg Capsule, 500 MG PO QID for Infection, #32 CAP 0 Refills Prov:Oriana Boateng MD R1 10/03/17 Current Medications Medications (Trade) Dose Ordered Sig/Juani Route Start Time Stop Time Status Last Admin (NS Flush) 2 ml UNSCH PRN IV FLUSH 10/10/17 12:45 10/11/17 11:57 (NS Flush) 2 ml BID IV FLUSH 10/10/17 21:00 10/13/17 09:39 (Zofran Inj) 4 mg Q6H PRN IVP 10/10/17 12:45 (Narcan Inj) 0.4 mg UNSCH PRN IV PUSH 10/10/17 12:45 (Milk Of Magnesia Liq) 30 ml Q12H PRN PO 10/10/17 12:45 (Senokot) 17.2 mg Q12H PRN PO 10/10/17 12:45 (Dulcolax Supp) 10 mg DAILY PRN RECTAL 10/10/17 12:45 (Lactulose Liq) 30 ml DAILY PRN PO 10/10/17 12:45 (Proscar) 5 mg HS PO 10/10/17 21:00 10/13/17 21:21 Potassium Chloride 40 meq/ Sodium Chloride 1,020 ml @ 45 mls/hr [id number] IV 10/11/17 19:00 10/14/17 05:45 (Protonix) 40 mg Q12HR PO 10/12/17 09:00 10/13/17 21:21 (Keflex) 500 mg Q8H PO 10/12/17 17:00 10/14/17 01:31 Family Psych History Patient has little contact with his siblings so he denies mental illness in family Social History Patient homeless who recently relocated to this area is considering moving into an TAD will recommend case management assist him with finding an TAD Patient's Strengths (min. 2) Patient verbal able access healthcare is cooperative Physical Exam Please see [facility] Vital Signs Vital Signs Date Time Temp Pulse Resp B/P (MAP) Pulse Ox O2 Delivery O2 Flow Rate FiO2 10/14/17 03:08 98.3 85 18 131/87 (102) 95 10/10/17 13:36 Room Air I/O 10/14/17 10/14/17 10/15/17 08:00 16:00 00:00 Intake Total 1860 ml Output Total 1000 ml Balance 860 ml Lab Results Date/Time Source Procedure Growth Status 10/10/17 07:45 Blood Peripheral Aerobic Blood Culture - Preliminary NO GROWTH IN 3 DAYS Resulted 10/10/17 07:45 Blood Peripheral Anaerobic Blood Culture - Preliminary NO GROWTH IN 3 DAYS Resulted 10/10/17 13:54 Stool Stool Cryptosporidium Exam - Final NEGATIVE - NO CRYPTOSPORIDIUM ANTIGEN... Complete 10/10/17 13:54 Stool Stool Giardia Antigen (WILLIAM) - Final NEGATIVE - NO GIARDIA ANTIGEN DETECTE... Complete Mental Status Examination Appearance: Appropriate, Disheveled (Mildly) Consciousness: Alert Orientation: Person, Place, Date/Time, Situation Motor Activity: Other (Patient has peripheral edema) Speech: Hesitant (Mildly) Language: Adequate Fund of Knowledge: Adequate Attention and Concentration: Other (Fair) Mood: Other (Euthymic to somewhat restricted) Affect: Other (Slight decreased range and intensity) Thought Process & Associations: Intact, Linear (Mildly) Thought Content: Appropriate Hallucination Type: None Delusion Type: Other (Perhaps mildly grandiose related to thoughts of 3 masters degrees from [employer]) Suicidal Ideation: No Suicidal Plan: No Suicidal Intention: No Homicidal Ideation: No Homicidal Plan: No Homicidal Intention: No Insight: Fair Judgment: Adequate (Fair) Assessment & Plan Problem List: (1) Paranoid type schizophrenia, chronic state ICD Codes: F20.0 - Paranoid schizophrenia Assessment & Plan Estimated LOS: days at this time patient does not meet criteria for inpatient psychiatric hospitalization. That suggests the initiation of Zyprexa 15 mg at at bedtime. Would suggest case management work with this gentleman to find an appropriate placement in a local [facility] perhaps [facility] manner. In perhaps follow-up mental health care through [facility] Discharge Planning See above Request HC Surrog/Guard Advoc?: No Jakob Torres MD October 14, 2017 08:00
--- NOTE | 2017-10-14 08:40 | HHI.PR ---
Subjective Remarks He is in the chair he appears in not acute distress at this time. No pain in his legs. No fever or chills overnight. Pleasant and conversant. Objective Vitals Vital Signs Date Time Temp Pulse Resp B/P (MAP) Pulse Ox O2 Delivery O2 Flow Rate FiO2 10/14/17 03:08 98.3 85 18 131/87 (102) 95 10/13/17 23:09 98.2 89 19 126/85 (99) 96 10/13/17 19:31 98.1 76 19 137/84 (101) 100 10/13/17 16:30 98.1 83 18 157/84 (108) 100 10/13/17 11:40 98.5 77 16 140/97 (111) 98 I/O 10/13/17 10/13/17 10/13/17 10/14/17 10/14/17 10/14/17 07:00 15:00 23:00 07:00 15:00 23:00 Intake Total 1500 ml 1682 ml 1860 ml Output Total 1100 ml 850 ml 1000 ml Balance 400 ml 832 ml 860 ml Intake Oral 480 ml 1200 ml 840 ml IV Total 1020 ml 482 ml 1020 ml Output Urine Total 1100 ml 850 ml 1000 ml # Voids 1 1 # Bowel Movements 1 1 Result Diagram: 10/12/17 0357 10/12/17 0357 Objective Remarks GENERAL: Patient lying in bed. Appears comfortable. Alert and oriented 3. SKIN: Warm and dry. Contusion bilateral dermatitis with sloughing skin. Appears improved. HEAD: Normocephalic. EYES: No scleral icterus. No injection or drainage. NECK: Supple, trachea midline. No JVD. CARDIOVASCULAR: Regular rate and rhythm without murmurs, gallops, or rubs. RESPIRATORY: Breath sounds equal bilaterally. No accessory muscle use. GASTROINTESTINAL: Abdomen soft, non-tender, nondistended. MUSCULOSKELETAL: No cyanosis, or edema. BACK: Nontender without obvious deformity. No CVA tenderness. A/P Assessment and Plan Intractable diarrhea Diffuse abdominal pain CT abdomen with possible small bowel obstruction versus ileus C. difficile negative. IV fluids. Consult gastroenterology. Appreciate assistance. We'll order stool studies. 10/11. Follow-up stool studies. Appreciate GI assistance. Workup pending. Follow-up GI recommendations. 10/12. Stool studies negative. Appreciate GI assistance. Advancing to full liquid diet. 10/13 advance diet to diabetic diet. With psychosis consult psych 10/14 started on zyprexa. 15 mg at bedtime Sepsis Echocardiogram, leukocytosis. Bilateral lower extremity cellulitis, left worse than right. Also with possible colitis Lactate within normal limits. Start on IV antibiotics for coverage of diabetic cellulitis left lower extremity. ESR Follow-up cultures. Leukocytosis improved. Tachycardia improving. ESR 34. Continue antibiotics for bilateral lower extremity cellulitis. Bilateral lower extremity edema with venous stasis cellulitis Ultrasound ordered. Antibiotics as above. 10/11. Ultrasound negative for DVT. Continue antibiotics as above. Improving 10/12. Switch to Keflex for bilateral lower extremity cellulitis. Appreciate wound care recommendations. History of BPH. Patient denies any issues currently. Continue finasteride. Hold off on Flomax for now. Will monitor closely. 10/11. No current issues. Hold off on BPH medications due to blood pressure. Continue to monitor. Diabetes mellitus type 2 Recent A1c 6.5. Accu, insulin sliding scale. Hypokalemia. 3.2. Add potassium to IV fluids. Recheck tomorrow. 3.4. Improving. Continue potassium and IV fluids. History of hypertension. Blood pressure acceptable. Hold off on restarting home medications. Schizophrenia Patient has been off his medication for 1 month. He appears to be conversing appropriately. Consult psych , appreciate recommendations. Start Zyprexa 15 mg at at bedtime. Follow-up mental health care through [facility] [id number] [facility]. Discharge Planning Pending improvement . Consult psych as patient with psychosis. Plan for SNF. CM consult for DC plan. Rosy Mack MD October 14, 2017 08:40
[2017-10-14] MEDS ORDERED: PANT40TA3 PO (08:44)
[2017-10-14] MEDS ORDERED: OLAN15TA PO (08:44)
[2017-10-14] MEDS ORDERED: CEPH500C PO (08:44)
--- NOTE | 2017-10-14 08:45 | HHI.DS ---
Discharge Summary Admission Date October 10, 2017 at 19:56 Discharge Date: October 16, 2017 Admitting Diagnosis abd pain, diarrhea, ileus vs. early SBO Brief History - From Admission 52-year-old male with a history of schizophrenia, hypertension, diabetes, who recently traveled from [place] 1 month ago having lived in an SNF for 2 years , presents with a one-month history of loose watery diarrhea, gradually worsening diffuse crampy, nonradiating intermittent abdominal pain. He also reports a one-month history of bilateral lower extremity edema. He does report one-month history of nausea and vomiting, only with solid foods. Patient is now a good historian in regards to medications. He is currently homeless. He does however remember the name and number of his previous SNF which she left one -month ago. [facility] [id number]. History is extrapolated from medication list received from SNF. Patient has been homeless for the past month. Previous admission last month for bilateral lower extremity cellulitis. CBC/BMP: 10/12/17 0357 10/12/17 0357 Significant Findings Laboratory Tests Test 10/12/17 03:57 10/12/17 09:36 Red Blood Count 3.65 MIL/MM3 (4.50-5.90) Hemoglobin 10.4 GM/DL (13.0-17.0) Hematocrit 31.1 % (39.0-51.0) Neutrophils (%) (Auto) 72.4 % (16.0-70.0) Monocytes (%) (Auto) 9.3 % (0.0-8.0) Lymphocytes # (Auto) 0.8 TH/MM3 (1.0-4.8) Random Glucose 60 MG/DL (74-106) Albumin 2.5 GM/DL (3.4-5.0) Calcium Level 8.3 MG/DL (8.5-10.1) Potassium Level 3.4 MEQ/L (3.5-5.1) Chloride Level 109 MEQ/L (98-107) Carbon Dioxide Level 20.1 MEQ/L (21.0-32.0) Estimat Glomerular Filtration Rate 86 ML/MIN (>89) Vancomycin Level Trough 20.2 MCG/ML (5.0-10.0) Imaging Last Impressions Abdomen X-Ray 10/11/17 Signed Impressions: Service Date/Time: October 11:08 - CONCLUSION: 1. Barium from yesterday's upper GI has passed to the right colon and some has passed to the rectum. This excludes small bowel obstruction. 2. Persistent gas distended loops of small bowel measuring up to 3.6 cm. 3. Due to the residual barium, recommend deferring small bowel series until the barium has cleared. Bala Dukes MD Upper GI Series 10/10/17 0000 Signed Impressions: Service Date/Time: Tuesday, October 10, 2017 15:26 - CONCLUSION: 1. Small sliding hiatal hernia 2. Moderate gastroesophageal reflux in the supine position. Sahil Donnelly MD Lower Extremity Ultrasound 10/10/17 0000 Signed Impressions: Service Date/Time: Tuesday, October 10, 2017 21:49 - CONCLUSION: No DVT in either lower extremity. Castillo Fierro MD Abdomen/Pelvis CT 10/10/17 Signed Impressions: Service Date/Time: Tuesday, October 10, 2017 08:50 - CONCLUSION: 1. Nonspecific bowel gas pattern with some moderately dilated loops of small bowel filled with air and fluid. No definite transition zone. This may be a diffuse small bowel ileus versus an early partial distal small bowel obstruction.. 2. Otherwise, unremarkable examination. Sahil Donnelly MD PE at Discharge GENERAL: Patient lying in bed. Appears comfortable. Alert and oriented 3. SKIN: Warm and dry. Contusion bilateral dermatitis with sloughing skin. Appears improved. HEAD: Normocephalic. EYES: No scleral icterus. No injection or drainage. NECK: Supple, trachea midline. No JVD. CARDIOVASCULAR: Regular rate and rhythm without murmurs, gallops, or rubs. RESPIRATORY: Breath sounds equal bilaterally. No accessory muscle use. GASTROINTESTINAL: Abdomen soft, non-tender, nondistended. MUSCULOSKELETAL: No cyanosis, or edema. BACK: Nontender without obvious deformity. No CVA tenderness. Hospital Course Intractable diarrhea, resolved. And noted with constipation thereafter. Resolved. Diffuse abdominal pain. Resolved. CT abdomen with possible small bowel obstruction versus ileus on admission C. difficile negative. IV fluids. Consult gastroenterology. Appreciate assistance. We'll order stool studies. 10/11. Follow-up stool studies. Appreciate GI assistance. Workup pending. Follow-up GI recommendations. 10/12. Stool studies negative. Appreciate GI assistance. Advancing to full liquid diet. 10/13 advance diet to diabetic diet. With psychosis consult psych 10/14 started on zyprexa. 15 mg at bedtime 10/15 Constipation: Start bowel regimen if need. 10/16 With pain in his legs add norco prn for pain Sepsis, resolved Echocardiogram, leukocytosis. Bilateral lower extremity cellulitis, left worse than right. Also with possible colitis Lactate within normal limits. Start on IV antibiotics for coverage of diabetic cellulitis left lower extremity. ESR Follow-up cultures. Leukocytosis improved. Tachycardia improving. ESR 34. Continue antibiotics for bilateral lower extremity cellulitis. Bilateral lower extremity edema with venous stasis cellulitis Ultrasound ordered. Antibiotics as above. 10/11. Ultrasound negative for DVT. Continue antibiotics as above. Improving 10/12. Switch to Keflex for bilateral lower extremity cellulitis. Appreciate wound care recommendations. History of BPH. Patient denies any issues currently. Continue finasteride. Hold off on Flomax for now. Will monitor closely. 10/11. No current issues. Hold off on BPH medications due to blood pressure. Continue to monitor. Diabetes mellitus type 2 Recent A1c 6.5. Accu, insulin sliding scale. Hypokalemia. Potassium replaced. Monitor and replace as needed History of hypertension. Blood pressure acceptable. Hold off on restarting home medications. Schizophrenia Patient has been off his medication for 1 month. He appears to be conversing appropriately. Consult psych , appreciate recommendations. Start Zyprexa 15 mg at at bedtime. Follow-up mental health care through [facility]. Constipation: Start bowel regimen if need.. Discharge Planning Pending improvement . Consult psych as patient with psychosis. Plan for SNF. CM consult for DC plan. Pt Condition on Discharge: Stable Discharge Disposition: Discharge to SNF Discharge Time: > 30 minutes Discharge Instructions DIET: Follow Instructions for: Heart Healthy Diet, Diabetic Diet Activities you can perform: Regular-No Restrictions Follow up Referrals: Gastroenterology - 2 Weeks PCP Follow-up - 2-3 Days New Medications: Cephalexin (Cephalexin) 500 Mg Cap 500 MG PO Q8H for infection for 12 Days, #36 CAP Olanzapine (Olanzapine) 15 Mg Tab 15 MG PO HS for schizophrenia , #30 TAB Pantoprazole (Pantoprazole) 40 Mg Tab 40 MG PO DAILY for gi ppx, #30 TAB Continued Medications: Amlodipine (Amlodipine) 2.5 Mg Tab 2.5 MG PO DAILY for Blood Pressure Management, #30 TAB 0 Refills Aripiprazole (Abilify) 15 Mg Tab 15 MG PO DAILY, #30 TAB [address] (Divalproex DR) 125 Mg Tabdr 125 MG BID for Control Seizures, #60 TAB 0 Refills Duloxetine HCl (Duloxetine HCl) 100 % Powder 60 MG PO HS Finasteride (Finasteride) 5 Mg Tab 5 MG HS for Manage Prostate Problems, #30 TAB 0 Refills Do not crush. Metformin ER (Metformin ER) 500 Mg Neo 500 MG PO TID for Blood Sugar Management, TAB 0 Refills With evening meal Metoprolol Succinate ER 24 HR (Metoprolol Succinate ER 24 HR) 50 Mg Tab 50 MG PO BID, #30 TAB 0 Refills Tamsulosin (Tamsulosin) 0.4 Mg Cap 0.4 MG HS for Manage Prostate Problems, #30 CAP 0 Refills Rosy Mack MD October 14, 2017 08:45
[2017-10-14] MEDS: PANTOPRAZOLE SOD 40 MG DELAYED RELEASE TAB PO SCH ×2 (08:58→22:37)
[2017-10-14] MEDS: SODIUM CHLORIDE 0.9% FLUSH 10 ML FLUSH IV FLUSH SCH ×2 (09:00→22:38)
--- NOTE | 2017-10-14 09:51 | HHI.FF ---
Face to Face Verification Diagnosis: (1) Diarrhea (2) Paranoid type schizophrenia, chronic state (3) Lower extremity edema (4) Abdominal pain (5) Abrasion, face without infection (6) DM2 (diabetes mellitus, type 2) (7) History of recent fall Physical Therapy Order: Evaluate and Treat Home Health Nursing Order: Medical education Signs/symptoms of disease process Medication education-adverse effect Nursing assessment with vital signs I have seen patient Guero Torres on 10/14/17. My clinical findings support the need for the requested home health care services because: Ltd mobility - disease progression I certify that my clinical findings support that this patient is homebound because: Post-op weakness Rosy Mack MD October 14, 2017 09:51
--- NOTE | 2017-10-14 09:52 | HHI.FF ---
Face to Face Verification Diagnosis: (1) Homeless (2) History of recent fall (3) DM2 (diabetes mellitus, type 2) (4) Abrasion, face without infection (5) Abdominal pain (6) Lower extremity edema (7) Paranoid type schizophrenia, chronic state (8) Diarrhea Physical Therapy Order: Evaluate and Treat Occupational Therapy Order: Evaluate and Treat Home Health Nursing Order: Medical education Signs/symptoms of disease process Medication education-adverse effect Wound care and dressing changes Nursing assessment with vital signs (Assist in bathing patient please.) I have seen patient Guero Torres on 10/14/17. My clinical findings support the need for the requested home health care services because: Ltd mobility - disease progression Patient has SOB I certify that my clinical findings support that this patient is homebound because: Post-op weakness Rosy Mack MD October 14, 2017 09:52
[2017-10-14 12:00] VITALS: BP 132/87; PULSE 95; RESP 18; TEMP 98.6; O2SAT 98
[2017-10-14 16:00] VITALS: BP 124/86; PULSE 75; RESP 18; TEMP 98.1; O2SAT 97
[2017-10-14 19:50] VITALS: BP 115/82; PULSE 85; RESP 20; TEMP 98.2; O2SAT 98
[2017-10-14] MEDS: FINASTERIDE 5 MG TAB PO SCH (22:37)
[2017-10-14 23:05] VITALS: BP 138/92; PULSE 77; RESP 18; TEMP 98.5; O2SAT 97
[2017-10-15] MEDS: CEPHALEXIN MONOHYDRATE 500 MG CAP PO SCH ×3 (01:01→15:38)
[2017-10-15] MEDS: POTASSIUM CHLORIDE INJ 40 MEQ in SODIUM CHLOR 0.9% 1000 ML INJ 1,000 ML IV SCH (04:44)
[2017-10-15 04:48] VITALS: BP 118/87; PULSE 73; RESP 17; TEMP 97.7; O2SAT 96
[2017-10-15 08:00] VITALS: BP 128/72; PULSE 72; RESP 16; TEMP 98.1; O2SAT 97
[2017-10-15] MEDS: PANTOPRAZOLE SOD 40 MG DELAYED RELEASE TAB PO SCH ×2 (09:19→21:29)
[2017-10-15] MEDS: SODIUM CHLORIDE 0.9% FLUSH 10 ML FLUSH IV FLUSH SCH ×2 (09:19→21:29)
[2017-10-15 12:00] VITALS: BP 126/85; PULSE 74; RESP 16; TEMP 97.9; O2SAT 100
[2017-10-15 13:46] LABS: BICARBONATE 28.8 MEQ/L (21.0-32.0); CALCIUM 9.6 MG/DL (8.5-10.1); CREATININE 1.02 MG/DL (0.60-1.30)
--- NOTE | 2017-10-15 13:47 | HHI.PR ---
Subjective Remarks He is in the chair he appears in not acute distress at this time. Complains of constipation. No nausea or vomiting. Says he has some pain in his legs, controlled by medications. No fever or chills overnight. Pleasant and conversant. Objective Vitals Vital Signs Date Time Temp Pulse Resp B/P (MAP) Pulse Ox O2 Delivery O2 Flow Rate FiO2 10/15/17 12:00 97.9 74 16 126/85 (99) 100 10/15/17 08:00 98.1 72 16 128/72 (90) 97 10/15/17 04:48 97.7 73 17 118/87 (97) 96 10/14/17 23:05 98.5 77 18 138/92 (107) 97 10/14/17 19:50 98.2 85 20 115/82 (93) 98 10/14/17 16:00 98.1 75 18 124/86 (99) 97 I/O 10/14/17 10/14/17 10/14/17 10/15/17 10/15/17 10/15/17 07:00 15:00 23:00 07:00 15:00 23:00 Intake Total 1860 ml 1488 ml 1620 ml Output Total 1000 ml 1200 ml 1300 ml Balance 860 ml 288 ml 320 ml Intake Oral 840 ml 1000 ml 600 ml IV Total 1020 ml 488 ml 1020 ml Output Urine Total 1000 ml 1200 ml 1300 ml # Voids 3 # Bowel Movements 1 2 Result Diagram: 10/12/17 0357 10/12/17 0357 Objective Remarks GENERAL: Patient lying in bed. Appears comfortable. Alert and oriented 3. SKIN: Warm and dry. Contusion bilateral dermatitis with sloughing skin. Appears improved. HEAD: Normocephalic. EYES: No scleral icterus. No injection or drainage. NECK: Supple, trachea midline. No JVD. CARDIOVASCULAR: Regular rate and rhythm without murmurs, gallops, or rubs. RESPIRATORY: Breath sounds equal bilaterally. No accessory muscle use. GASTROINTESTINAL: Abdomen soft, non-tender, nondistended. MUSCULOSKELETAL: No cyanosis, or edema. BACK: Nontender without obvious deformity. No CVA tenderness. A/P Assessment and Plan Intractable diarrhea Diffuse abdominal pain CT abdomen with possible small bowel obstruction versus ileus C. difficile negative. IV fluids. Consult gastroenterology. Appreciate assistance. We'll order stool studies. 10/11. Follow-up stool studies. Appreciate GI assistance. Workup pending. Follow-up GI recommendations. 10/12. Stool studies negative. Appreciate GI assistance. Advancing to full liquid diet. 10/13 advance diet to diabetic diet. With psychosis consult psych 10/14 started on zyprexa. 15 mg at bedtime Sepsis Echocardiogram, leukocytosis. Bilateral lower extremity cellulitis, left worse than right. Also with possible colitis Lactate within normal limits. Start on IV antibiotics for coverage of diabetic cellulitis left lower extremity. ESR Follow-up cultures. Leukocytosis improved. Tachycardia improving. ESR 34. Continue antibiotics for bilateral lower extremity cellulitis. Bilateral lower extremity edema with venous stasis cellulitis Ultrasound ordered. Antibiotics as above. 10/11. Ultrasound negative for DVT. Continue antibiotics as above. Improving 10/12. Switch to Keflex for bilateral lower extremity cellulitis. Appreciate wound care recommendations. History of BPH. Patient denies any issues currently. Continue finasteride. Hold off on Flomax for now. Will monitor closely. 10/11. No current issues. Hold off on BPH medications due to blood pressure. Continue to monitor. Diabetes mellitus type 2 Recent A1c 6.5. Accu, insulin sliding scale. Hypokalemia. Potassium replaced. Monitor and replace as needed History of hypertension. Blood pressure acceptable. Hold off on restarting home medications. Schizophrenia Patient has been off his medication for 1 month. He appears to be conversing appropriately. Consult psych , appreciate recommendations. Start Zyprexa 15 mg at at bedtime. Follow-up mental health care through [facility]. Constipation: Start bowel regimen. Discharge Planning Pending improvement . Consult psych as patient with psychosis. Plan for SNF. CM consult for DC plan. Rosy Mack MD October 15, 2017 13:47
[2017-10-15] MEDS ORDERED: MAGNESIUM HYDROXIDE SUSP 30 ML CUP PO PRN (14:00)
[2017-10-15] MEDS ORDERED: BISACODYL 10 MG SUPP RECTAL PRN (14:00)
[2017-10-15] MEDS ORDERED: NALOXONE HCL 0.4 MG/ML AMP IV PUSH PRN (14:00)
[2017-10-15] MEDS ORDERED: LACTULOSE SYRUP 20 GM/30 ML CUP PO PRN (14:00)
[2017-10-15] MEDS ORDERED: SENNOSIDES 8.6 MG TAB PO PRN (14:00)
[2017-10-15 16:00] VITALS: BP 124/78; PULSE 70; RESP 16; TEMP 97.8; O2SAT 100
[2017-10-15 20:00] VITALS: BP 115/75; PULSE 88; RESP 16; TEMP 98; O2SAT 100
[2017-10-15] MEDS: FINASTERIDE 5 MG TAB PO SCH (21:29)
[2017-10-15] MEDS: DOCUSATE SODIUM 50 MG/SENNA 8.6 MG TAB PO SCH (21:30)
[2017-10-16] VITALS (7 sets, daily range): BP systolic 109–137; BP diastolic 72–87; PULSE 66–93; RESP 16–20; TEMP 97.5–98.8; O2SAT 94–100
[2017-10-16] MEDS: CEPHALEXIN MONOHYDRATE 500 MG CAP PO SCH ×3 (01:14→17:11)
--- NOTE | 2017-10-16 07:49 | HHI.PR ---
Subjective Remarks Says he has some pain at the wound site. Had a BM yesterday No n/v/d/c. Awaiting for placement Objective Vitals Vital Signs Date Time Temp Pulse Resp B/P (MAP) Pulse Ox O2 Delivery O2 Flow Rate FiO2 10/16/17 03:30 97.8 66 16 125/76 (92) 95 10/16/17 00:00 98.3 91 16 137/72 (93) 94 10/15/17 20:00 98.0 88 16 115/75 (88) 100 10/15/17 16:00 97.8 70 16 124/78 (93) 100 10/15/17 12:00 97.9 74 16 126/85 (99) 100 10/15/17 08:00 98.1 72 16 128/72 (90) 97 I/O 10/15/17 10/15/17 10/15/17 10/16/17 10/16/17 10/16/17 07:00 15:00 23:00 07:00 15:00 23:00 Intake Total 1620 ml 1710 ml 480 ml Output Total 1300 ml 1450 ml 2200 ml Balance 320 ml 260 ml -1720 ml Intake Oral 600 ml 1260 ml 480 ml IV Total 1020 ml 450 ml Output Urine Total 1300 ml 1450 ml 2200 ml # Voids 3 # Bowel Movements 1 0 Result Diagram: 10/12/17 0357 10/15/17 1221 Imaging Last Impressions Abdomen X-Ray 10/11/17 0000 Signed Impressions: Service Date/Time: October 11:08 - CONCLUSION: 1. Barium from yesterday's upper GI has passed to the right colon and some has passed to the rectum. This excludes small bowel obstruction. 2. Persistent gas distended loops of small bowel measuring up to 3.6 cm. 3. Due to the residual barium, recommend deferring small bowel series until the barium has cleared. Bala Dukes MD Upper GI Series 10/10/17 0000 Signed Impressions: Service Date/Time: Tuesday, October 10, 2017 15:26 - CONCLUSION: 1. Small sliding hiatal hernia 2. Moderate gastroesophageal reflux in the supine position. Sahil Donnelly MD Lower Extremity Ultrasound 10/10/17 0000 Signed Impressions: Service Date/Time: Tuesday, October 10, 2017 21:49 - CONCLUSION: No DVT in either lower extremity. Castillo Fierro MD Abdomen/Pelvis CT 10/10/17 0000 Signed Impressions: Service Date/Time: Tuesday, October 10, 2017 08:50 - CONCLUSION: 1. Nonspecific bowel gas pattern with some moderately dilated loops of small bowel filled with air and fluid. No definite transition zone. This may be a diffuse small bowel ileus versus an early partial distal small bowel obstruction.. 2. Otherwise, unremarkable examination. Sahil Donnelly MD Objective Remarks GENERAL: Patient lying in bed. Appears comfortable. Alert and oriented. SKIN: Warm and dry. Contusion bilateral dermatitis with sloughing skin, dressing on c/d/i. EYES: No scleral icterus. No injection or drainage. NECK: Supple, trachea midline. No JVD. CARDIOVASCULAR: Regular rate and rhythm without murmurs, gallops, or rubs. RESPIRATORY: Breath sounds equal bilaterally. No accessory muscle use. GASTROINTESTINAL: Abdomen soft, non-tender, nondistended. MUSCULOSKELETAL: No cyanosis, or edema. A/P Assessment and Plan Intractable diarrhea, resolved. And noted with constipation thereafter. Resolved. Diffuse abdominal pain. Resolved. CT abdomen with possible small bowel obstruction versus ileus on admission C. difficile negative. IV fluids. Consult gastroenterology. Appreciate assistance. We'll order stool studies. 10/11. Follow-up stool studies. Appreciate GI assistance. Workup pending. Follow-up GI recommendations. 10/12. Stool studies negative. Appreciate GI assistance. Advancing to full liquid diet. 10/13 advance diet to diabetic diet. With psychosis consult psych 10/14 started on zyprexa. 15 mg at bedtime 10/15 Constipation: Start bowel regimen if need. 10/16 With pain in his legs add norco prn for pain Sepsis, resolved Echocardiogram, leukocytosis. Bilateral lower extremity cellulitis, left worse than right. Also with possible colitis Lactate within normal limits. Start on IV antibiotics for coverage of diabetic cellulitis left lower extremity. ESR Follow-up cultures. Leukocytosis improved. Tachycardia improving. ESR 34. Continue antibiotics for bilateral lower extremity cellulitis. Bilateral lower extremity edema with venous stasis cellulitis Ultrasound ordered. Antibiotics as above. 10/11. Ultrasound negative for DVT. Continue antibiotics as above. Improving 10/12. Switch to Keflex for bilateral lower extremity cellulitis. Appreciate wound care recommendations. History of BPH. Patient denies any issues currently. Continue finasteride. Hold off on Flomax for now. Will monitor closely. 10/11. No current issues. Hold off on BPH medications due to blood pressure. Continue to monitor. Diabetes mellitus type 2 Recent A1c 6.5. Accu, insulin sliding scale. Hypokalemia. Potassium replaced. Monitor and replace as needed History of hypertension. Blood pressure acceptable. Hold off on restarting home medications. Schizophrenia Patient has been off his medication for 1 month. He appears to be conversing appropriately. Consult psych , appreciate recommendations. Start Zyprexa 15 mg at at bedtime. Follow-up mental health care through [facility]. Constipation: Start bowel regimen if need.. Discharge Planning Pending improvement . Consult psych as patient with psychosis. Plan for SNF. CM consult for DC plan. Rosy Makc MD October 16, 2017 07:49
[2017-10-16] MEDS: PANTOPRAZOLE SOD 40 MG DELAYED RELEASE TAB PO SCH ×2 (08:45→20:40)
[2017-10-16] MEDS: SODIUM CHLORIDE 0.9% FLUSH 10 ML FLUSH IV FLUSH SCH ×2 (08:45→20:41)
[2017-10-16] MEDS: POTASSIUM CHLORIDE INJ 40 MEQ in SODIUM CHLOR 0.9% 1000 ML INJ 1,000 ML IV SCH ×2 (08:46→09:05)
[2017-10-16] MEDS: DOCUSATE SODIUM 50 MG/SENNA 8.6 MG TAB PO SCH ×2 (08:46→20:41)
[2017-10-16] MEDS ORDERED: ACETAMINOPHEN/HYDROcodone 325 MG/5 MG TAB PO PRN (15:45)
[2017-10-16] MEDS: FINASTERIDE 5 MG TAB PO SCH (20:40)
[2017-10-17] VITALS: BP 106/66; PULSE 85; RESP 18; TEMP 97.9; O2SAT 96
[2017-10-17] MEDS: CEPHALEXIN MONOHYDRATE 500 MG CAP PO SCH ×2 (00:10→10:15)
[2017-10-17 04:00] VITALS: BP 106/87; PULSE 94; RESP 18; TEMP 97.4; O2SAT 97
[2017-10-17 08:00] VITALS: BP 105/63; PULSE 90; RESP 20; TEMP 98; O2SAT 100
[2017-10-17] MEDS: DOCUSATE SODIUM 50 MG/SENNA 8.6 MG TAB PO SCH (10:15)
[2017-10-17] MEDS: PANTOPRAZOLE SOD 40 MG DELAYED RELEASE TAB PO SCH (10:15)
[2017-10-17] MEDS: SODIUM CHLORIDE 0.9% FLUSH 10 ML FLUSH IV FLUSH SCH (10:20)
--- NOTE | 2017-10-17 10:45 | HHI.DS ---
Discharge Summary Admission Date October 10, 2017 at 19:56 Discharge Date: October 17, 2017 Admitting Diagnosis abd pain, diarrhea, ileus vs. early SBO (1) Abdominal pain ICD Code: R10.9 - Unspecified abdominal pain Status: Acute (2) Lower extremity edema ICD Code: R60.0 - Localized edema Status: Acute Procedures none Brief History - From Admission 52-year-old male with a history of schizophrenia, hypertension, diabetes, who recently traveled from [place] 1 month ago having lived in an SNF for 2 years , presents with a one-month history of loose watery diarrhea, gradually worsening diffuse crampy, nonradiating intermittent abdominal pain. He also reports a one-month history of bilateral lower extremity edema. He does report one-month history of nausea and vomiting, only with solid foods. Patient is now a good historian in regards to medications. He is currently homeless. He does however remember the name and number of his [facility] which [phone] History is extrapolated from medication list received from SNF. Patient has been homeless for the past month. Previous admission last month for bilateral lower extremity cellulitis. CBC/BMP: 10/15/17 1221 Significant Findings Laboratory Tests Test 10/14/17 16:32 10/15/17 12:21 Activated Partial Thromboplast Time 23.6 SEC (24.3-30.1) Estimat Glomerular Filtration Rate 77 ML/MIN (>89) Imaging Last Impressions Abdomen X-Ray 10/11/17 0000 Signed Impressions: Service Date/Time: October 11:08 - CONCLUSION: 1. Barium from yesterday's upper GI has passed to the right colon and some has passed to the rectum. This excludes small bowel obstruction. 2. Persistent gas distended loops of small bowel measuring up to 3.6 cm. 3. Due to the residual barium, recommend deferring small bowel series until the barium has cleared. aBla Dukes MD Upper GI Series 10/10/17 0000 Signed Impressions: Service Date/Time: Tuesday, October 10, 2017 15:26 - CONCLUSION: 1. Small sliding hiatal hernia 2. Moderate gastroesophageal reflux in the supine position. Sahil Donnelly MD Lower Extremity Ultrasound 10/10/17 0000 Signed Impressions: Service Date/Time: Tuesday, October 10, 2017 21:49 - CONCLUSION: No DVT in either lower extremity. Castillo Fierro MD Abdomen/Pelvis CT 10/10/17 0000 Signed Impressions: Service Date/Time: Tuesday, October 10, 2017 08:50 - CONCLUSION: 1. Nonspecific bowel gas pattern with some moderately dilated loops of small bowel filled with air and fluid. No definite transition zone. This may be a diffuse small bowel ileus versus an early partial distal small bowel obstruction.. 2. Otherwise, unremarkable examination. Sahil Donnelly MD PE at Discharge Sitting up in bed, awake, alert, no acute distress, working with occupational therapy, abdomen is nondistended, dressings on bilateral lower extremities with healing wounds Hospital Course Patient was admitted. GI workup which was unremarkable for any definitive SBO, stool studies were also negative. Ultimately did have normal bowel movements with relief of abdominal pain and was tolerating p.o. intake well. Wound care was consulted to address lower extremities and patient was instructed to follow- up with wound care clinic as an outpatient. Patient has met maximal benefit from hospitalization and is clinically stable for discharge. Pt Condition on Discharge: Stable Discharge Disposition: Discharge Home Discharge Time: <= 30 minutes Discharge Instructions DIET: Follow Instructions for: Heart Healthy Diet, Diabetic Diet Activities you can perform: Regular-No Restrictions Follow up Referrals: Gastroenterology - 2 Weeks PCP Follow-up - 1 Week Wound Care Clinic - 1 Week New Medications: Cephalexin (Cephalexin) 500 Mg Cap 500 MG PO Q8H for infection for 12 Days, #36 CAP Olanzapine (Olanzapine) 15 Mg Tab 15 MG PO HS for schizophrenia , #30 TAB Pantoprazole (Pantoprazole) 40 Mg Tab 40 MG PO DAILY for gi ppx, #30 TAB Continued Medications: Amlodipine (Amlodipine) 2.5 Mg Tab 2.5 MG PO DAILY for Blood Pressure Management, #30 TAB 0 Refills Aripiprazole (Abilify) 15 Mg Tab 15 MG PO DAILY, #30 TAB [address] (Divalproex DR) 125 Mg Tabdr 125 MG BID for Control Seizures, #60 TAB 0 Refills Duloxetine HCl (Duloxetine HCl) 100 % Powder 60 MG PO HS Finasteride (Finasteride) 5 Mg Tab 5 MG HS for Manage Prostate Problems, #30 TAB 0 Refills Do not crush. Metformin ER (Metformin ER) 500 Mg Neo 500 MG PO TID for Blood Sugar Management, TAB 0 Refills With evening meal Metoprolol Succinate ER 24 HR (Metoprolol Succinate ER 24 HR) 50 Mg Tab 50 MG PO BID, #30 TAB 0 Refills Tamsulosin (Tamsulosin) 0.4 Mg Cap 0.4 MG HS for Manage Prostate Problems, #30 CAP 0 Refills Christian Crow MD October 17, 2017 10:45
[2017-10-17 12:00] VITALS: BP 116/83; PULSE 92; RESP 20; TEMP 97.5; O2SAT 99
[2017-10-17] MEDS ORDERED: OFFICE MEDICATION TOPICAL (12:22)
== END 2017-10-17 16:11 | disposition home or self-care (01) | DRG 872 ==
LOC: NEPE 07:20 → NEDA 12:42 → NEPGCP 14:22 → OBSVTOIN 19:56 → HCIS 10-12 23:02 → N04A 10-16 13:02
PROVIDERS: ADMIT Hospitalist; ATTEND Hospitalist
DX: A41.9 Sepsis, unspecified organism (principal); E11.628 Type 2 diabetes mellitus with other skin complications; F20.0 Paranoid schizophrenia; L03.115 Cellulitis of right lower limb; L03.116 Cellulitis of left lower limb; I10 Essential (primary) hypertension; D64.9 Anemia, unspecified; E87.6 Hypokalemia; I87.8 Other specified disorders of veins; K21.9 Gastro-esophageal reflux disease without esophagitis; K59.00 Constipation, unspecified; N40.0 Benign prostatic hyperplasia without lower urinary tract symptoms; R00.0 Tachycardia, unspecified; R10.30 Lower abdominal pain, unspecified; R11.2 Nausea with vomiting, unspecified; R19.7 Diarrhea, unspecified; Z79.84 Long term (current) use of oral hypoglycemic drugs; Z59.0 Homelessness
CPT/HCPCS: 74018; 74177; 74241; 80048; 80053; 80069; 80202; 81001; 82272; 83605; 83690; 83735; 83880; 85025; 85652; 85730; 87040; 87328; 87329; 87493; 87506; 93970; 96360; 96361; C9113; J2543; J3370; J3480; J7030; J7040; J7050; Q9967

== ENCOUNTER 2018-04-16 12:17 | Inpatient (IN) ==
[2018-04-16] MEDS ORDERED: Vancomycin Inj 1,000 MG in Sodium Chlor 0.9% Inj 250 ML IV.SIG STA (12:34)
[2018-04-16] MEDS ORDERED: Piperacil/Tazo 4.5 GM Premix 4.5 GM/100 ML BAG IV.SIG STA (12:34)
--- NOTE | 2018-04-16 12:48 | ED ---
HPI General Chief complaint: Medical Clearance Stated complaint: Medical Time Seen by Provider: 04/16/18 12:25 Source: patient, EMS, RN notes reviewed and old records reviewed Mode of arrival: EMS History of Present Illness HPI narrative: 52yM brought in by EMS/ police for bilateral lower extremity infections. The patient is in police custody and requires a medical exam of his wounds prior to being incarcerated. As per previous records, the patient has a history of paranoid schizophrenia. When asked about how long the patient has had these wounds for, the patient states "I guess it's been a while" but can't tell me a specific time frame. He denies any complaints at present. Related Data Home Medications Medication Instructions Recorded Confirmed No Known Home Medications 04/16/18 04/16/18 Allergies Allergy/AdvReac Type Severity Reaction Status Date / Time No Known Allergies Allergy Verified 04/16/18 13:39 Review of Systems ROS: all other systems reviewed are negative PMFSH History History Provided By: Patient Medical History Medical History Paranoid schizophrenia (Acute) Social History Social History Second Hand Smoke Exposure: No Smoking Status: Unknown if ever smoked How Often Do You Have a Drink Containing Alcohol: Never Recent Travel in [place] within the Last 8 Weeks: No Recent Out of Country Travel within the Last 8 Weeks: No Exam Const General: no acute distress and disheveled HENMT Head: normocephalic and atraumatic Face and sinus: normal facial exam Eyes General: appearance normal, both eyes and all related structures Resp Auscultation: clear to auscultation bilaterally Cardio Rate: regular rate Rhythm: regular rhythm GI Palpation: soft and nontender Skin Other: Large areas of purulent/ necrotic / foul-smelling wounds with surrounding cellulitis circumferentially to bilateral lower extremities from knees down, pants/ socks firmly adhered to wounds and encrusted in purulent discharge, maggots noted in RLE wound Neuro General: alert, awake and no focal motor deficits Course Consultations Consultation #1: Case discussed with Dr. العلي of podiatry, who will consult. Patient will need a vascular consult as well. She recommends betadine wet to dry dressings in the interim. Time: 13:41 Initial Documented Vital Signs Temperature 97.9 F 04/16/18 13:34 Pulse Rate 110 H 04/16/18 13:34 Respiratory Rate 16 04/16/18 13:34 Blood Pressure 151/80 H 04/16/18 13:34 Pulse Oximetry 98 04/16/18 13:34 Last Documented Vital Signs Temperature 98.1 F 04/16/18 14:00 Pulse Rate 101 H 04/16/18 14:00 Respiratory Rate 15 04/16/18 14:00 Blood Pressure 151/80 H 04/16/18 13:34 Pulse Oximetry 98 04/16/18 14:00 Medical Decision Making MDM Narrative Medical decision making narrative: Assessment: 52yM presenting with extensive bilateral lower extremity wounds/ infestation, concern for gangrene Plan: Sepsis workup IV fluids Blood and urine cultures Antibiotics Podiatry consult Addendum: Patient found to have normal WBCs but with left shift, acute kidney injury, and lactic acidosis. His HR improved to 100s after IV fluids. Case discussed with Dr. Phan (see "consults" section) and with Dr. Ifeoma Christine of [facility]. This patient will need continue IV antibiotics/ fluids, specialist consultation, and re-evaluation at frequent intervals. Medical Screen Exam Complete: Yes Emergency Medical Condition: Yes Differential Diagnosis Differential Diagnosis: Differential diagnosis includes, but is not limited to: gangrene, pseudomonas, NSTI, sepsis, SIRS Lab Data Lab results reviewed: Yes I reviewed the patient's lab results. Result diagrams: 04/16/18 13:15 04/16/18 13:15 Lab Results 04/16/18 04/16/18 04/16/18 Range/Units 13:15 13:15 13:15 WBC 8.2 (4.0-11.0) th/mm3 RBC 4.28 L (4.50-5.90) mil/mm3 Hgb 11.0 L (13.0-17.0) gm/dL Hct 34.1 L (39.0-51.0) % MCV 79.7 L (80.0-100.0) fL MCH 25.7 L (27.0-34.0) pg MCHC 32.3 (32.0-36.0) % RDW 16.9 (11.6-17.2) % Plt Count 342 (150-450) th/mm3 MPV 9.2 (7.0-11.0) fL Neut % (Auto) 75.3 H (16.0-70.0) % Lymph % (Auto) 10.1 (9.0-44.0) % [place] % (Auto) 13.1 H (0.0-8.0) % Eos % (Auto) 0.7 (0.0-4.0) % Baso % (Auto) 0.8 (0.0-2.0) % Neut # (Auto) 6.1 (1.8-7.7) th/mm3 Lymph # (Auto) 0.8 L (1.0-4.8) th/mm3 [place] # (Auto) 1.1 H (0.0-0.9) th/mm3 Eos # (Auto) 0.1 (0.0-0.4) th/mm3 Baso # (Auto) 0.1 (0.0-0.2) th/mm3 WBC Differential . Differential Comment Auto diff final PT 11.3 (9.8-11.6) sec INR 1.1 Ratio APTT 29.6 (23.4-31.7) sec Sodium 135 L (136-145) meq/L Potassium 5.3 H (3.5-5.1) meq/L Chloride 104 (98-107) meq/L Carbon Dioxide 19.3 L (21.0-32.0) meq/L Anion Gap 12 (5-15) meq/L BUN 27 H (7-18) mg/dL Creatinine 1.56 H (0.60-1.30) mg/dL Estimated GFR 47 L (>89) mL/min POC Glucose (68-110) mg/dl Random Glucose 269 H (74-106) mg/dL Lactic Acid (0.4-2.0) mmol/L Calcium 9.1 (8.5-10.1) mg/dL Phosphorus 2.8 (2.5-4.9) mg/dL Magnesium 2.2 (1.5-2.5) mg/dL Total Bilirubin 0.6 (0.2-1.0) mg/dL AST 51 H (15-37) U/L ALT 36 (12-78) U/L Alkaline Phosphatase 79 (45-117) U/L Total Protein 8.4 H (6.4-8.2) g/dL Albumin 2.5 L (3.4-5.0) g/dL 04/16/18 04/16/18 Range/Units 13:15 13:55 WBC (4.0-11.0) th/mm3 RBC (4.50-5.90) mil/mm3 Hgb (13.0-17.0) gm/dL Hct (39.0-51.0) % MCV (80.0-100.0) fL MCH (27.0-34.0) pg MCHC (32.0-36.0) % RDW (11.6-17.2) % Plt Count (150-450) th/mm3 MPV (7.0-11.0) fL Neut % (Auto) (16.0-70.0) % Lymph % (Auto) (9.0-44.0) % [place] % (Auto) (0.0-8.0) % Eos % (Auto) (0.0-4.0) % Baso % (Auto) (0.0-2.0) % Neut # (Auto) (1.8-7.7) th/mm3 Lymph # (Auto) (1.0-4.8) th/mm3 [place] # (Auto) (0.0-0.9) th/mm3 Eos # (Auto) (0.0-0.4) th/mm3 Baso # (Auto) (0.0-0.2) th/mm3 WBC Differential Differential Comment PT (9.8-11.6) sec INR Ratio APTT (23.4-31.7) sec Sodium (136-145) meq/L Potassium (3.5-5.1) meq/L Chloride (98-107) meq/L Carbon Dioxide (21.0-32.0) meq/L Anion Gap (5-15) meq/L BUN (7-18) mg/dL Creatinine (0.60-1.30) mg/dL Estimated GFR (>89) mL/min POC Glucose 266 H (68-110) mg/dl Random Glucose (74-106) mg/dL Lactic Acid 2.7 H (0.4-2.0) mmol/L Calcium (8.5-10.1) mg/dL Phosphorus (2.5-4.9) mg/dL Magnesium (1.5-2.5) mg/dL Total Bilirubin (0.2-1.0) mg/dL AST (15-37) U/L ALT (12-78) U/L Alkaline Phosphatase (45-117) U/L Total Protein (6.4-8.2) g/dL Albumin (3.4-5.0) g/dL Imaging Data Radiologist's impression: Chest X-Ray 04/16/18 12:34 CONCLUSION: No acute cardiopulmonary disease. ECG Data Attestation: I personally reviewed and interpreted this ECG as follows: Interpretation: Rate: 102 BPM Rhythm: Sinus [place]: Normal Intervals: Normal intervals, no blocks, QTc 395 ms Q waves: aVF T waves: Upright, no inversions ST segments: No elevations or depressions Impression: Non-specific EKG, no changes as compared to EKG from 10/01/2017. Discharge Plan Discharge Disposition Patient Disposition: 30 Still Patient Discharge Condition Condition: Stable Discharge Details Diagnosis: Cellulitis and abscess of leg, Acute kidney injury, Lactic acidosis, Infestation by maggots Physicians Team ED Provider: Lilibeth Jeter Primary Care Provider: Primary Care Kathy Kennedy Attending Provider: Abran Christine Other Providers: Abby Phan Rxs /Orders / Referrals /Forms Prescriptions: No Action No Known Home Medications RF: 0 Discharge Interventions Interventions: Vital Signs Last Done: 04/16/18 14:00 Status ED Status: Admitted Patient
[2018-04-16] MEDS ORDERED: Sod Chloride 0.9% Inj 1,000 ML IV.SIG ONE ×2 (12:49)
--- NOTE | 2018-04-16 13:57 | XR ---
EXAM DATE: 04/16/2018 1:22 PM EST AGE/SEX: 52 years / Male INDICATIONS: Shortness of breath. CLINICAL DATA: This is the patient's initial encounter. Patient reports that signs and symptoms have been present for 1 day and indicates a pain score of 0/10. MEDICAL/SURGICAL HISTORY: None. None. [place] [facility] [place]. . FINDINGS: The right hemidiaphragm is elevated. There is evidence for prior granulomatous exposure with calcifie d granuloma left upper lung. CONCLUSION: No acute cardiopulmonary disease. Electronically signed by: Karma Coleman MD 04/16/2018 1:56 PM EST
[2018-04-16 14:08] LABS: Baso # (Auto) 0.1 th/mm3 (0.0-0.2); Baso % (Auto) 0.8 % (0.0-2.0); Eos # (Auto) 0.1 th/mm3 (0.0-0.4); Eos % (Auto) 0.7 % (0.0-4.0); Hematocrit 34.1 % (39.0-51.0); Lymph # (Auto) 0.8 th/mm3 (1.0-4.8); Lymph % (Auto) 10.1 % (9.0-44.0); Mean Corpuscular HGB Conc 32.3 % (32.0-36.0); Mean Corpuscular Hemoglobin 25.7 pg (27.0-34.0); Mean Corpuscular Volume 79.7 fL (80.0-100.0); Mean Platelet Volume 9.2 fL (7.0-11.0); Mono # (Auto) 1.1 th/mm3 (0.0-0.9); Mono % (Auto) 13.1 % (0.0-8.0); Neut # (Auto) 6.1 th/mm3 (1.8-7.7); Neut % (Auto) 75.3 % (16.0-70.0); Platelet Count 342 th/mm3 (150-450); Red Blood Count 4.28 mil/mm3 (4.50-5.90); Red Cell Distribution Width 16.9 % (11.6-17.2); White Blood Count 8.2 th/mm3 (4.0-11.0)
[2018-04-16 14:12] LABS: Activated Partial Thrombo Time 29.6 sec (23.4-31.7); INR 1.1 Ratio; Prothrombin Time 11.3 sec (9.8-11.6)
[2018-04-16 14:26] LABS: Alkaline Phosphatase 79 U/L (45-117); Total Protein 8.4 g/dL (6.4-8.2)
[2018-04-16 14:27] LABS: Alanine Aminotransferase 36 U/L (12-78); Albumin 2.5 g/dL (3.4-5.0); Anion Gap 12 meq/L (5-15); Aspartate Aminotransferase 51 U/L (15-37); Blood Urea Nitrogen 27 mg/dL (7-18); Calcium 9.1 mg/dL (8.5-10.1); Carbon Dioxide 19.3 meq/L (21.0-32.0); Chloride 104 meq/L (98-107); Glomerular Filtration Rate 47 mL/min (>89); Glucose,Random 269 mg/dL (74-106); Magnesium 2.2 mg/dL (1.5-2.5); Phosphorus 2.8 mg/dL (2.5-4.9); Sodium 135 meq/L (136-145)
[2018-04-16 14:28] LABS: Potassium 5.3 meq/L (3.5-5.1)
[2018-04-16] MEDS ORDERED: Acetaminophen 325 MG Tablet PO PRN (15:35)
[2018-04-16] MEDS ORDERED: Dextrose 50% in Water 50 ML Vial IV.PUSH PRN (15:38)
[2018-04-16] MEDS ORDERED: Piperacil/Tazo 3.375 GM Premix 50 ML IV.SIG SCH (15:45)
[2018-04-16] MEDS: Sod Chloride 0.9% Inj 1,000 ML IV.CONT SCH (16:05)
[2018-04-16 16:17] LABS: Bilirubin,Urine Negative (Negative); Clarity,Urine Clear (Clear); Color,Urine Yellow (Yellw/Straw); Glucose,Urine (UA) 150 mg/dL (Negative); Leukocyte Esterase,Urine Negative (Negative); Nitrite,Urine Negative (Negative); Specific Gravity,Urine 1.024 (1.002-1.035); Squamous Epithelial Cell,Urine <1 /hpf (0-5); Urobilinogen,Urine 4 or Greater mg/dL (Less than 2)
--- NOTE | 2018-04-16 17:05 | P.CONPOD ---
History of Present Illness Service: podiatry Consult date: 04/16/18 Reason for Consult: bullous lesions, weeping bilateral legs Primary Care Provider: No Primary Care Physician History of Present Illness: Patient history is unreliable and he states he has had drainage on his legs since September. Was brought in with maggots on legs and maceration with redness to both lower legs. Review of Systems All other systems reviewed negative except as [facility] - History History Provided By: Patient - Medical History Medical History: Medical History (Last Reviewed 04/16/18 @ 12:43 by Lilibeth Jeter DO) Paranoid schizophrenia - Tobacco History Second Hand Smoke Exposure: No Tobacco Use In Past 30 Days: No Smoking Status: Unknown if ever smoked - Alcohol History How Often Do You Have a Drink Containing Alcohol: Never - Travel History Recent Travel in the [place] Within the Last 8 Weeks: No Recent Travel Out of the Country Within the Last 8 Weeks: No - Immunization History Tetanus Immunization: <5 Years Medications and Allergies Active Medications: Active Medications Acetaminophen (Tylenol) 650 mg PO Q4H PRN PRN Reason: Temp > 100.4 Dextrose (D50w Vial) 50 ml IV.PUSH UNSCH PRN PRN Reason: PER HYPOGLYCEMIA PROTOCOL Enoxaparin Sodium (Lovenox Inj) 40 mg SQ Q24H AVTAR Glucagon (Glucagon Inj) 1 mg OTHER PRN PRN PRN Reason: for Hypoglycemia Protocol Sodium Chloride (Ns Inj) 1,000 mls @ 84 mls/hr IV.CONT .[id number] AVTAR Vancomycin HCl 1,000 mg/ (Sodium Chloride) 250 mls @ 250 mls/hr IV.SIG Q24H AVTAR Piperacillin/Tazobactam/Dextrose (Zosyn 3.375 Gm Premix) 50 mls @ 100 mls/hr IV.SIG Q8H AVTAR Insulin Aspart (Novolog Insulin Correctional Sugar Inj) 0 unit SQ ACHS AVTAR; Protocol Ondansetron HCl (Zofran Inj) 4 mg IV.PUSH Q6H PRN PRN Reason: NAUSEA OR VOMITING Sennosides (Senokot) 17.2 mg PO Q12H PRN PRN Reason: Moderate Constipation Allergies Allergy/AdvReac Type Severity Reaction Status Date / Time No Known Allergies Allergy Verified 04/16/18 13:39 Home Medications Medication Instructions Recorded Confirmed Type No Known Home Medications 04/16/18 04/16/18 History Physical Exam Vital signs: Vital Signs 04/16/18 13:34 04/16/18 13:40 04/16/18 14:00 Temperature 97.9 F 98.1 F Pulse Rate 110 H 101 H Respiratory Rate 16 15 Blood Pressure 151/80 H Pulse Oximetry 98 98 98 Intake & Output 04/15/18 04/16/18 04/16/18 18:59 06:59 18:59 Intake Total 100 / 100 Balance 100 / 100 Weight 83.915 kg Intake: IV 100 / 100 Zosyn 4.5 GM Premix 4.5 gm In 100 / 100 100 ml @ 200 mls/hr IV.SIG STAT STA Rx#:[id number] Narrative: Bilateral lower legs with edema and maceration bilaterally Erythema with malodor and copious serous drainage present. Erythema extends to below-knee bilaterally. Sensation intact. Results - Labs CBC & Chem 7: 04/16/18 13:15 04/16/18 13:15 Laboratory Results - last 24 hr 04/16/18 04/16/18 04/16/18 13:15 13:15 13:15 WBC 8.2 RBC 4.28 L Hgb 11.0 L Hct 34.1 L MCV 79.7 L MCH 25.7 L MCHC 32.3 RDW 16.9 Plt Count 342 MPV 9.2 Neut % (Auto) 75.3 H Lymph % (Auto) 10.1 [place] % (Auto) 13.1 H Eos % (Auto) 0.7 Baso % (Auto) 0.8 Neut # (Auto) 6.1 Lymph # (Auto) 0.8 L [place] # (Auto) 1.1 H Eos # (Auto) 0.1 Baso # (Auto) 0.1 WBC Differential . Differential Comment Auto diff final PT 11.3 INR 1.1 APTT 29.6 Sodium 135 L Potassium 5.3 H Chloride 104 Carbon Dioxide 19.3 L Anion Gap 12 BUN 27 H Creatinine 1.56 H Estimated GFR 47 L POC Glucose Random Glucose 269 H Lactic Acid Calcium 9.1 Phosphorus 2.8 Magnesium 2.2 Total Bilirubin 0.6 AST 51 H ALT 36 Alkaline Phosphatase 79 Total Protein 8.4 H Albumin 2.5 L Urine Color Urine Clarity Urine pH Ur Specific [place] Urine Protein Urine Glucose (UA) Urine Ketones Urine Occult Blood Urine Nitrate Urine Bilirubin Urine Urobilinogen Ur Leukocyte Esterase Urine RBC Urine WBC Ur Squamous Epith Cells Micro UA Comment Ur Microscopic Review Urine Culture Comments 04/16/18 04/16/18 04/16/18 13:15 13:55 15:30 WBC RBC Hgb Hct MCV MCH MCHC RDW Plt Count MPV Neut % (Auto) Lymph % (Auto) [place] % (Auto) Eos % (Auto) Baso % (Auto) Neut # (Auto) Lymph # (Auto) [place] # (Auto) Eos # (Auto) Baso # (Auto) WBC Differential Differential Comment PT INR APTT Sodium Potassium Chloride Carbon Dioxide Anion Gap BUN Creatinine Estimated GFR POC Glucose 266 H Random Glucose Lactic Acid 2.7 H Calcium Phosphorus Magnesium Total Bilirubin AST ALT Alkaline Phosphatase Total Protein Albumin Urine Color Yellow Urine Clarity Clear Urine pH 5.0 Ur Specific [place] 1.024 Urine Protein 30 H Urine Glucose (UA) 150 H Urine Ketones Trace H Urine Occult Blood Small H Urine Nitrate Negative Urine Bilirubin Negative Urine Urobilinogen 4 or greater Ur Leukocyte Esterase Negative Urine RBC Less than 1 Urine WBC 1 Ur Squamous Epith Cells <1 Micro UA Comment Culture not ind Ur Microscopic Review Not Reportable Urine Culture Comments Culture not ind - Imaging Impressions Chest X-Ray 04/16/18 12:34 CONCLUSION: No acute cardiopulmonary disease. Assessment and Plan - Assessment (1) Venous insufficiency of both lower extremities Code(s): I87.2 - Venous insufficiency (chronic) (peripheral) Status: Acute (2) Cellulitis and abscess of leg Code(s): L03.119 - Cellulitis of unspecified part of limb; L02.419 - Cutaneous abscess of limb, unspecified Status: Acute - Plan Applied compression bandages to bilateral lower extremities after cleansing. Keep clean, dry, intact. Will assess in a few days to see if erythema is resolving with IV antibiotics and fluid control. Recommend continuing IV antibiotics. Will need edema control long-term when wounds are healed.
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
[2018-04-16] MEDS: Insulin NovoLOG Aspart Correctional Sugar Inj SQ SCH ×2 (18:36→20:29)
[2018-04-16] MEDS: Enoxaparin Inj 40 MG/0.4 ML Syringe SQ SCH (18:36)
[2018-04-16] MEDS: Clotrimazole 1% Cream 15 GM Tube TOPICAL SCH (20:25)
[2018-04-16] MEDS: Piperacil/Tazo 3.375 GM Premix 50 ML IV.SIG SCH (21:52)
[2018-04-17] MEDS: Sod Chloride 0.9% Inj 1,000 ML IV.CONT SCH ×3 (00:19→15:50)
[2018-04-17] MEDS: Piperacil/Tazo 3.375 GM Premix 50 ML IV.SIG SCH ×3 (05:00→21:25)
[2018-04-17 07:04] LABS: Hematocrit 31.4 % (39.0-51.0); Hemoglobin 10.3 gm/dL (13.0-17.0); Mean Corpuscular HGB Conc 32.9 % (32.0-36.0); Mean Corpuscular Hemoglobin 25.2 pg (27.0-34.0); Mean Corpuscular Volume 76.7 fL (80.0-100.0); Mean Platelet Volume 8.9 fL (7.0-11.0); Platelet Count 316 th/mm3 (150-450); Red Cell Distribution Width 16.3 % (11.6-17.2); White Blood Count 7.4 th/mm3 (4.0-11.0)
[2018-04-17 07:39] LABS: Carbon Dioxide 21.5 meq/L (21.0-32.0); Potassium 3.6 meq/L (3.5-5.1)
[2018-04-17] MEDS: Insulin NovoLOG Aspart Correctional Sugar Inj SQ SCH ×4 (09:38→21:29)
[2018-04-17] MEDS: Vancomycin Inj 1,000 MG in Sodium Chlor 0.9% Inj 250 ML IV.SIG SCH (09:39)
[2018-04-17 11:50] LABS: Thyroid Stimulating Hormone 3.39 uIU/mL (0.358-3.740)
[2018-04-17] MEDS: Clotrimazole 1% Cream 15 GM Tube TOPICAL SCH ×2 (12:19→21:26)
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
[2018-04-17] MEDS: Enoxaparin Inj 40 MG/0.4 ML Syringe SQ SCH (19:22)
--- NOTE | 2018-04-17 19:54 | ECG ---
Date Performed: 04/16/2018 Time Performed: 13:43:47 PTAGE: 52 years EKG: SINUS TACHYCARDIA NONSPECIFIC T-WAVE ABNORMALITY ABNORMAL RHYTHM ECG PREVIOUS TRACING : 10/01/2017 08.58 Since the previous tracing, no significant change noted DOCTOR: Wayne Barbosa Interpretating Date/Time 04/17/2018 19:53:23
[2018-04-17] MEDS: Haloperidol 5 MG Tablet PO SCH (21:25)
[2018-04-18] MEDS: Sod Chloride 0.9% Inj 1,000 ML IV.CONT SCH ×2 (04:31→08:55)
[2018-04-18] MEDS: Piperacil/Tazo 3.375 GM Premix 50 ML IV.SIG SCH (05:10)
[2018-04-18 08:43] VITALS: BP 120/92; PULSE 96; RESP 16; TEMP 98.3; O2SAT 98
[2018-04-18] MEDS: Vancomycin Inj 1,000 MG in Sodium Chlor 0.9% Inj 250 ML IV.SIG SCH (08:45)
[2018-04-18] MEDS: Haloperidol 5 MG Tablet PO SCH (08:50)
[2018-04-18] MEDS: Insulin NovoLOG Aspart Correctional Sugar Inj SQ SCH ×2 (09:59→13:49)
[2018-04-18] MEDS: Clotrimazole 1% Cream 15 GM Tube TOPICAL SCH (12:12)
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
[2018-04-19 23:50] LABS: Zinc 54 mcg/dL (60-130)
[2018-04-20 15:27] LABS: Vitamin C (Ascorbic Acid) Less Than 0.1000 mg/dL (0.4 - 2.0)
== END 2018-04-18 15:23 ==
LOC: NEPD 12:17 → NEDA 15:25 → NEPGCP 19:40
PROVIDERS: ADMIT Family Medicine; ATTEND Family Medicine

== ENCOUNTER 2018-04-18 12:20 | Inpatient (IN) ==
[2018-04-18] MEDS ORDERED: Acetaminophen 325 MG Tablet PO PRN (16:16)
[2018-04-18] MEDS ORDERED: Aluminum/Magnesium/Simethacone Susp 30 ML UDC PO PRN (16:17)
[2018-04-18] MEDS ORDERED: Bisacodyl 10 MG Supp RECTAL PRN (16:17)
[2018-04-18] MEDS ORDERED: TAZOBACTAM IV.SIG SCH (16:30)
[2018-04-18] MEDS ORDERED: DEXTROSE IV.SIG SCH (16:30)
[2018-04-18] MEDS ORDERED: [UNRECOGNIZED DRUG - OTHER] IV.SIG SCH (16:30)
[2018-04-18] MEDS ORDERED: PIPERACILLIN IV.SIG SCH (16:30)
[2018-04-18] MEDS ORDERED: Vancomycin Ped Inj (< 20 kg) 1000 MG/200 ML Syringe IV.SIG SCH (16:30)
[2018-04-18] MEDS ORDERED: Influenza (Quadrivalent) Vaccine 0.5 ML Syringe IM ONE (17:30)
[2018-04-18] MEDS ORDERED: Dextrose 50% in Water 50 ML Vial IV.PUSH PRN (17:49)
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
[2018-04-18] MEDS: Enoxaparin Inj 40 MG/0.4 ML Syringe SQ SCH (18:14)
[2018-04-18] MEDS: Piperacil/Tazo 3.375 GM Premix 50 ML IV.SIG SCH (18:15)
[2018-04-18] MEDS: Haloperidol 5 MG Tablet PO SCH (21:05)
[2018-04-18] MEDS: Insulin NovoLOG Aspart Correctional Sugar Inj SQ SCH (21:07)
[2018-04-18] MEDS: Senna/Docusate Sodium 8.6/50 MG Tablet PO SCH (21:08)
[2018-04-18] MEDS: Clotrimazole 1% Cream 15 GM Tube TOPICAL SCH (21:08)
[2018-04-19] MEDS: Piperacil/Tazo 3.375 GM Premix 50 ML IV.SIG SCH ×3 (01:06→17:38)
[2018-04-19 08:08] LABS: Calcium 8.3 mg/dL (8.5-10.1); Carbon Dioxide 27.3 meq/L (21.0-32.0); Potassium 3.6 meq/L (3.5-5.1)
[2018-04-19 08:12] LABS: Chol/HDL Ratio 3.26 Ratio; HDL Cholesterol 34.3 mg/dL (40.0-60.0)
[2018-04-19] MEDS ORDERED: Vancomycin Inj 1,000 MG in Sodium Chlor 0.9% Inj 250 ML IV.SIG SCH (09:00)
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
[2018-04-19] MEDS: Insulin NovoLOG Aspart Correctional Sugar Inj SQ SCH ×4 (10:32→21:06)
[2018-04-19] MEDS: Haloperidol 5 MG Tablet PO SCH ×2 (10:33→21:06)
[2018-04-19] MEDS: Senna/Docusate Sodium 8.6/50 MG Tablet PO SCH ×2 (10:34→21:06)
[2018-04-19] MEDS: Clotrimazole 1% Cream 15 GM Tube TOPICAL SCH ×2 (10:34→21:06)
[2018-04-19] MEDS ORDERED: Vancomycin Consult Pharmacy OTHER PRN (13:12)
[2018-04-19] MEDS: Furosemide 40 MG Tablet PO SCH (14:04)
[2018-04-19 16:30] LABS: Hemoglobin A1c 10.6 % (4.3-6.0)
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
[2018-04-19] MEDS: Enoxaparin Inj 40 MG/0.4 ML Syringe SQ SCH (17:33)
--- NOTE | 2018-04-19 17:58 | P.PNPOD ---
Subjective Interval history: Bilateral leg wounds Review of Systems All other systems reviewed negative except as stated in HPI Physical Exam Vital signs: Vital Signs 04/19/18 04:58 Temperature 98.9 F Pulse Rate 82 Respiratory Rate 16 Blood Pressure 135/75 Pulse Oximetry 93 L Intake & Output 04/18/18 04/19/18 04/19/18 18:59 06:59 18:59 Intake Total 360 / 360 100 / 100 1250 / 1250 Balance 360 / 360 100 / 100 1250 / 1250 Weight 104.9 kg Intake: IV 100 / 100 50 / 50 Zosyn 3.375 GM Premix 50 ML @ 100 / 100 50 / 50 50 mls/hr IV.SIG Q8H [facility] Rx#: [id number] Oral 360 / 360 1200 / 1200 Other: # Bowel Movements 1 Weight On Admission 104.9 kg Narrative: Right posterior calf with shallow ulceration roughly 5cm diameter with mild serous drainage. Left anterior and lateral leg with smaller shallow ulcers. No purulence. No bogginess, no fluctuance. Minimal erythema to legs today. Much reduction in edema noted. Medications and Allergies Active Medications: Active Medications Acetaminophen (Tylenol) 650 mg PO Q4H PRN PRN Reason: Temp > 100.4 Al Hydrox/Mg Hydrox/Simethicone (Mag-Al Plus Susp Liq) 30 ml PO Q6H PRN PRN Reason: DYSPEPSIA Al Hydroxide/Mg Hydroxide (Milk Of Magnesia Liq) 30 ml PO Q12H PRN PRN Reason: Mild Constipation Bisacodyl (Dulcolax Supp) 10 mg RECTAL DAILY PRN PRN Reason: SEVERE CONSITIPATION Clotrimazole (Lotrimin 1% Cream) 1 applicatio TOPICAL BID [facility] Last Admin: 04/19/18 10:34 Dose: 1 applicatio Dextrose (D50w Vial) 50 ml IV.PUSH UNSCH PRN PRN Reason: PER HYPOGLYCEMIA PROTOCOL Enoxaparin Sodium (Lovenox Inj) 40 mg SQ Q24H [facility] Last Admin: 04/19/18 17:33 Dose: 40 mg Fluconazole (Diflucan) 200 mg PO DAILY [facility] Last Admin: 04/19/18 10:33 Dose: 200 mg Furosemide (Lasix) 40 mg PO DAILY [facility] Last Admin: 04/19/18 14:04 Dose: 40 mg Glucagon (Glucagon Inj) 1 mg OTHER UNSCH PRN PRN Reason: for Hypoglycemia Protocol Haloperidol (Haldol) 5 mg PO BID [facility] Last Admin: 04/19/18 10:33 Dose: 5 mg Piperacillin/Tazobactam/Dextrose (Zosyn 3.375 Gm Premix) 50 mls @ 50 mls/hr IV.SIG Q8H [facility] Last Admin: 04/19/18 17:38 Dose: 50 mls/hr Vancomycin HCl 1,250 mg/ (Sodium Chloride) 262.5 mls @ 262.5 mls/hr IV.SIG Q12H [facility] Insulin Aspart (Novolog Insulin Correctional Sugar Inj) 0 unit SQ ACHS [facility]; Protocol Last Admin: 04/19/18 17:36 Dose: 4 unit Insulin Human Isoph/Insulin Regular (Novolin 70/30 Inj) 10 units SQ BID@0800, 1700 [facility] Last Admin: 04/19/18 17:33 Dose: 10 units Lactulose (Lactulose Liq) 30 ml PO DAILY PRN PRN Reason: SEVERE CONSITIPATION Metformin HCl (Glucophage) 500 mg PO BIDPC [facility] Last Admin: 04/19/18 17:39 Dose: 500 mg Metoprolol Succinate (Toprol Xl) 12.5 mg PO DAILY [facility] Last Admin: 04/19/18 10:37 Dose: 12.5 mg Miscellaneous (Pill Splitter) 1 each OTHER DAILY [facility] Last Admin: 04/19/18 10:34 Dose: 1 each Miscellaneous Information ([facility] Ordered Lab Info) 0 each OTHER ONCE ONE Stop: 04/20/18 23:46 Pharmacy Profile Note (Vancomycin Consult Pharmacy) 1 each OTHER UNSCH PRN PRN Reason: Pharmacy to dose Potassium Chloride (K-Dur) 20 meq PO DAILY [facility] Last Admin: 04/19/18 14:04 Dose: 20 meq Senna/Docusate Sodium (Carol-Colace) 1 tab PO BID [facility] Last Admin: 04/19/18 10:34 Dose: 1 tab Sennosides (Senokot) 17.2 mg PO Q12H PRN PRN Reason: Moderate Constipation Allergies Allergy/AdvReac Type Severity Reaction Status Date / Time No Known Allergies Allergy Verified 04/16/18 13:39 Results - Labs CBC & Chem 7: 04/19/18 07:00 Laboratory Results - last 24 hr 04/18/18 04/19/18 04/19/18 20:17 07:00 07:55 Sodium 137 Potassium 3.6 Chloride 100 Carbon Dioxide 27.3 Anion Gap 10 BUN 7 Creatinine 0.95 Estimated GFR 84 L POC Glucose 285 H 384 H Random Glucose 111 H Calcium 8.3 L Triglycerides 72 Cholesterol 112 L LDL Cholesterol, Calc 63 HDL Cholesterol 34.3 L Cholesterol/HDL Ratio 3.26 04/19/18 11:43 Sodium Potassium Chloride Carbon Dioxide Anion Gap BUN Creatinine Estimated GFR POC Glucose 201 H Random Glucose Calcium Triglycerides Cholesterol LDL Cholesterol, Calc HDL Cholesterol Cholesterol/HDL Ratio Assessment and Plan - Assessment (1) Ulcers of both lower legs Code(s): L97.919 - Non-pressure chronic ulcer of unspecified part of right lower leg with unspecified severity; L97.929 - Non-pressure chronic ulcer of unspecified part of left lower leg with unspecified severity Status: Acute Plan: Ulcers are stable, not infected in appearance, and very shallow. No abscess suspected. No further treatment planned. Podiatry signing off. The following orders are in: Weekly dressing changes to bilateral lower extremities with santyl ointment to wounds, nonadherent dressing (xeroform or adaptic) to wound areas, 4x4s, abd pads, cling from toes to below knees, shavon from toes to below knees per nursing while in-house. Patient will need this to continue upon discharge either with home health or with follow up at wound care center. (2) Cellulitis and abscess of leg Code(s): L03.119 - Cellulitis of unspecified part of limb; L02.419 - Cutaneous abscess of limb, unspecified Status: Acute Plan: Resolving well.
[2018-04-20] MEDS: Vancomycin Inj 1,250 MG in Sodium Chlor 0.9% Inj 250 ML IV.SIG SCH ×2 (01:10→13:40)
[2018-04-20] MEDS: Piperacil/Tazo 3.375 GM Premix 50 ML IV.SIG SCH ×2 (02:23→10:55)
[2018-04-20 08:31] LABS: Baso % (Auto) 0.6 % (0.0-2.0); Eos # (Auto) 0.2 th/mm3 (0.0-0.4); Hematocrit 33.8 % (39.0-51.0); Lymph # (Auto) 0.9 th/mm3 (1.0-4.8); Lymph % (Auto) 11.7 % (9.0-44.0); Mean Corpuscular HGB Conc 32.6 % (32.0-36.0); Mean Corpuscular Hemoglobin 25.2 pg (27.0-34.0); Mean Corpuscular Volume 77.3 fL (80.0-100.0); Mean Platelet Volume 8.6 fL (7.0-11.0); Mono # (Auto) 0.7 th/mm3 (0.0-0.9); Mono % (Auto) 9.5 % (0.0-8.0); Neut # (Auto) 5.7 th/mm3 (1.8-7.7); Neut % (Auto) 75.2 % (16.0-70.0); Platelet Count 310 th/mm3 (150-450); Red Blood Count 4.37 mil/mm3 (4.50-5.90); Red Cell Distribution Width 16.3 % (11.6-17.2); White Blood Count 7.6 th/mm3 (4.0-11.0)
[2018-04-20 09:10] LABS: Calcium 8.8 mg/dL (8.5-10.1); Carbon Dioxide 29.6 meq/L (21.0-32.0); Potassium 3.9 meq/L (3.5-5.1)
--- NOTE | 2018-04-20 10:20 | P.PNPSY ---
Subjective Remarks: Patient seen in his room with nurse Brittany, chart reviewed, patient compliant medications. Patient calm cooperative with me though somewhat vigilant. He has been no behavior problems. Mother states he initially came up from [place] to be with his elderly mother. He was hospitalized and seen by me in October of this year. He has been homeless. He is calm and cooperative with the treatment for his lower extremity issues. At this time he denies suicidality denies voices at times his responses are somewhat delayed as if responding to internal stimuli Review of Systems All other systems reviewed negative except as stated in HPI Mental Status Examination Appearance: Disheveled, Malodorous Consciousness: Alert Orientation: Person, Place Motor Activity: Abnormal gait (Require walker) Speech: Unremarkable Language: Adequate Fund of Knowledge: Inadequate Attention and Concentration: Adequate Memory: Impaired Mood: Other (Somewhat restricted) Affect: Other (Decreased range and intensity) Thought Process & Associations: Other ([place]) Thought Content: Hallucinations, Delusional Hallucination Type: Auditory Delusion Type: Bizarre, Somatic Suicidal Ideation: No Suicidal Plan: No Suicidal Intention: No Homicidal Ideation: No Homicidal Plan: No Homicidal Intention: No Insight: Poor Judgment: Poor Assessment and Plan - Assessment (1) Schizophrenia Code(s): F20.9 - Schizophrenia, unspecified Status: Acute - Plan Plan: Patient continues somewhat delusional psychotic though calm and cooperative compliant with medication. For now continue treatment Justification for Continued Inpatient Stay: At this time patient would decompensate a place to a lower level of care Discharge Planning: To be determined
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
[2018-04-20] MEDS: Haloperidol 5 MG Tablet PO SCH ×2 (10:45→21:19)
[2018-04-20] MEDS: Furosemide 40 MG Tablet PO SCH (10:45)
[2018-04-20] MEDS: Senna/Docusate Sodium 8.6/50 MG Tablet PO SCH ×2 (10:53→21:19)
[2018-04-20] MEDS: Insulin NovoLOG Aspart Correctional Sugar Inj SQ SCH ×5 (12:07→21:35)
[2018-04-20] MEDS: Clotrimazole 1% Cream 15 GM Tube TOPICAL SCH (21:21)
[2018-04-20] MEDS ORDERED: Pharmacy Ordered Lab Info OTHER ONE (23:45)
[2018-04-21] MEDS: Vancomycin Inj 1,250 MG in Sodium Chlor 0.9% Inj 250 ML IV.SIG SCH ×2 (00:03→00:07)
[2018-04-21] MEDS: Piperacil/Tazo 3.375 GM Premix 50 ML IV.SIG SCH (07:14)
[2018-04-21] MEDS: Enoxaparin Inj 40 MG/0.4 ML Syringe SQ SCH (08:03)
[2018-04-21] MEDS: Insulin NovoLOG Aspart Correctional Sugar Inj SQ SCH ×4 (08:05→21:46)
[2018-04-21] MEDS: Senna/Docusate Sodium 8.6/50 MG Tablet PO SCH ×2 (08:11→21:46)
[2018-04-21] MEDS: Furosemide 40 MG Tablet PO SCH (08:12)
[2018-04-21] MEDS: Haloperidol 5 MG Tablet PO SCH ×2 (08:12→21:46)
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
[2018-04-21] MEDS: Clotrimazole 1% Cream 15 GM Tube TOPICAL SCH ×3 (11:45→21:45)
[2018-04-21] MEDS: Collagenase Oint 30 GM Tube TOPICAL SCH ×2 (11:45→13:36)
--- NOTE | 2018-04-21 13:08 | P.PNPSY ---
Subjective Remarks: Patient was seen and case discussed with nursing. Patient is pleasant and cooperative with exam. However, he is blunted and disheveled. Seclusive to his room. Minimally interactive during the interview. Does deny suicidal or homicidal ideation intent or plan. Poor insight into admission Mental Status Examination Appearance: Disheveled, Malodorous Consciousness: Alert Orientation: Person, Place Motor Activity: Abnormal gait (Require walker) Speech: Unremarkable Language: Adequate Fund of Knowledge: Inadequate Attention and Concentration: Adequate Memory: Impaired Mood: Other (Somewhat restricted) Affect: Other (Decreased range and intensity) Thought Process & Associations: Other ([place]) Thought Content: Appropriate, Delusional Delusion Type: Somatic Suicidal Ideation: No Suicidal Plan: No Suicidal Intention: No Homicidal Ideation: No Homicidal Plan: No Homicidal Intention: No Insight: Poor Judgment: Poor Assessment and Plan - Assessment (1) Schizophrenia Code(s): F20.9 - Schizophrenia, unspecified Status: Acute - Plan Plan: Continue current treatment plan Justification for Continued Inpatient Stay: Patient would decompensate in a less restrictive setting
[2018-04-21] MEDS: Sulfamethoxazole/Trimethoprim 400/80 MG Tablet PO SCH (13:36)
[2018-04-21] MEDS: Furosemide 20 MG Tablet PO SCH (13:39)
[2018-04-22] MEDS: Sulfamethoxazole/Trimethoprim 400/80 MG Tablet PO SCH (02:42)
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
[2018-04-22] MEDS: Collagenase Oint 30 GM Tube TOPICAL SCH (08:53)
[2018-04-22] MEDS: Haloperidol 5 MG Tablet PO SCH ×2 (08:58→21:33)
[2018-04-22] MEDS: Insulin NovoLOG Aspart Correctional Sugar Inj SQ SCH ×4 (08:58→21:35)
[2018-04-22] MEDS: Furosemide 20 MG Tablet PO SCH (08:58)
[2018-04-22] MEDS: Clotrimazole 1% Cream 15 GM Tube TOPICAL SCH ×2 (09:00→21:35)
[2018-04-22] MEDS: Senna/Docusate Sodium 8.6/50 MG Tablet PO SCH ×2 (09:00→21:38)
[2018-04-22 09:56] LABS: Baso # (Auto) 0.1 th/mm3 (0.0-0.2); Baso % (Auto) 1.1 % (0.0-2.0); Eos # (Auto) 0.2 th/mm3 (0.0-0.4); Eos % (Auto) 2.3 % (0.0-4.0); Hematocrit 36.4 % (39.0-51.0); Hemoglobin 11.9 gm/dL (13.0-17.0); Lymph # (Auto) 1.5 th/mm3 (1.0-4.8); Lymph % (Auto) 16.6 % (9.0-44.0); Mean Corpuscular HGB Conc 32.6 % (32.0-36.0); Mean Corpuscular Hemoglobin 25.3 pg (27.0-34.0); Mean Corpuscular Volume 77.7 fL (80.0-100.0); Mean Platelet Volume 8.4 fL (7.0-11.0); Mono # (Auto) 0.9 th/mm3 (0.0-0.9); Mono % (Auto) 9.3 % (0.0-8.0); Neut # (Auto) 6.5 th/mm3 (1.8-7.7); Neut % (Auto) 70.7 % (16.0-70.0); Platelet Count 410 th/mm3 (150-450); Red Blood Count 4.69 mil/mm3 (4.50-5.90); Red Cell Distribution Width 16.8 % (11.6-17.2); White Blood Count 9.2 th/mm3 (4.0-11.0)
[2018-04-22 10:29] LABS: Calcium 9.5 mg/dL (8.5-10.1); Carbon Dioxide 28.2 meq/L (21.0-32.0); Potassium 4.3 meq/L (3.5-5.1)
--- NOTE | 2018-04-22 10:41 | P.PNWCN ---
Wound Care Nurse Consult Additional information: Patient not seen for BL LE wounds on anterior and posterior aspects with several wounds. Podiatry, Doctor Phan has seen patient for these areas and has written wound care orders to be done by nursing staff. Wound care inpatient is signing off. Please defer any issues that arise with these wounds to Podiatry.
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
[2018-04-22] MEDS: Lactobacillus Acidophilus/L. Spores Tablet PO SCH ×2 (11:22→21:33)
[2018-04-22] MEDS: Sod Chloride 0.9% Inj 1,000 ML IV.CONT SCH (15:47)
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
[2018-04-22] MEDS: Enoxaparin Inj 40 MG/0.4 ML Syringe SQ SCH (17:51)
[2018-04-23] MEDS: Sod Chloride 0.9% Inj 1,000 ML IV.CONT SCH ×3 (00:33→21:37)
[2018-04-23] MEDS: Haloperidol 5 MG Tablet PO SCH ×2 (08:21→20:45)
[2018-04-23] MEDS: Lactobacillus Acidophilus/L. Spores Tablet PO SCH ×2 (08:21→20:45)
[2018-04-23] MEDS: Senna/Docusate Sodium 8.6/50 MG Tablet PO SCH ×2 (08:21→20:44)
[2018-04-23] MEDS: Insulin NovoLOG Aspart Correctional Sugar Inj SQ SCH ×4 (08:22→20:46)
[2018-04-23] MEDS: Clotrimazole 1% Cream 15 GM Tube TOPICAL SCH ×2 (08:23→20:44)
[2018-04-23] MEDS: Collagenase Oint 30 GM Tube TOPICAL SCH (08:24)
[2018-04-23 09:45] LABS: Calcium 8.9 mg/dL (8.5-10.1); Carbon Dioxide 26.7 meq/L (21.0-32.0); Potassium 4.7 meq/L (3.5-5.1)
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
[2018-04-23] MEDS: Enoxaparin Inj 40 MG/0.4 ML Syringe SQ SCH (16:57)
[2018-04-24] MEDS: Sod Chloride 0.9% Inj 1,000 ML IV.CONT SCH (04:21)
[2018-04-24] MEDS: Lactobacillus Acidophilus/L. Spores Tablet PO SCH ×2 (08:12→20:41)
[2018-04-24] MEDS: Clotrimazole 1% Cream 15 GM Tube TOPICAL SCH ×2 (08:12→20:41)
[2018-04-24] MEDS: Haloperidol 5 MG Tablet PO SCH ×2 (08:12→20:41)
[2018-04-24] MEDS: Senna/Docusate Sodium 8.6/50 MG Tablet PO SCH ×2 (08:12→20:41)
[2018-04-24] MEDS: Insulin NovoLOG Aspart Correctional Sugar Inj SQ SCH ×4 (08:13→20:41)
[2018-04-24] MEDS: Collagenase Oint 30 GM Tube TOPICAL SCH (08:13)
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
--- NOTE | 2018-04-24 15:00 | P.TTN ---
- Patient Problems Problems: 1. Discharge planning 2. Medication compliance 3. Knowledge deficit 4. Lack of coping skills - Progress Toward Goals Provider Present: Dr. Syd Kaufman Provider Input: 04/22/2018; Per doctor patient is being stabilized on medical meds, requires treatment with leg wound. Nurse(s) Present: RN Nurse Input: 04/22/2018; per RN patient is no behavior issues, he is eating meals and taking medication, require assistance with some of his self-care. Psychiatric Counselors Present: Silvina Thorne [facility] Psychiatric Therapist Input: 04/22/2018; counselor will work with DC partner integration planner with obtaining appropriate Skill nursing for PT/OT; counselor will also contact [facility] to confirm patient is able to return after dc form Rehab. Group Spec/RT/OT/MACDONALD Present: Bernabe Torres OT Group Spec/RT/OT/MACDONALD Input: 04/22/2018; Per OT patient is not participating with activities. - Documentation Teaching Recipient: Patient
--- NOTE | 2018-04-24 15:04 | P.TTN ---
- Patient Problems Problems: 1. Discharge planning 2. Medication compliance 3. Knowledge deficit 4. Lack of coping skills - Progress Toward Goals Provider Present: Dr. Syd Kaufman Provider Input: 04/24/2018; patient is being stabilized on medical meds, requires treatment with leg wound; and dc plan continues to be short term Rehab. 04/22/2018; Per doctor patient is being stabilized on medical meds, requires treatment with leg wound. Nurse(s) Present: RN Nurse Input: 04/24/2018; per RN patient is no behavior issues, he is eating meals and taking medication, require assistance with some of his self-care. 05/2018; per RN patient is no behavior issues, he is eating meals and taking medication, require assistance with some of his self-care. Psychiatric Counselors Present: Silvina Thorne [facility] Psychiatric Therapist Input: 04/24/2018; counselor will work with DC planner internship with obtaining appropriate Skill nursing for PT/OT; counselor have contact [facility] to confirm patient is able to return after dc form Rehab. Counselor spoke with Anabela the supervisor public message service who confirmed patient will be able to return after completing Rehab. 04/22/2018; counselor will work with DC planner internship with obtaining appropriate Skill nursing for PT/OT; counselor will also contact [facility] to confirm patient is able to return after dc form Rehab. Group Spec/RT/OT/MACDONALD Present: Bernabe Torres OT Group Spec/RT/OT/MACDONALD Input: 04/24/2018; Per OT patient is participating with some activities. 04/22/2018; Per OT patient is not participating with activities. - Documentation Teaching Recipient: Patient
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
[2018-04-24] MEDS: Enoxaparin Inj 40 MG/0.4 ML Syringe SQ SCH (16:54)
[2018-04-25] MEDS: Senna/Docusate Sodium 8.6/50 MG Tablet PO SCH ×2 (09:01→21:37)
[2018-04-25] MEDS: Haloperidol 5 MG Tablet PO SCH ×2 (09:01→21:37)
[2018-04-25] MEDS: Lactobacillus Acidophilus/L. Spores Tablet PO SCH ×2 (09:01→21:37)
[2018-04-25] MEDS: Clotrimazole 1% Cream 15 GM Tube TOPICAL SCH ×2 (09:01→21:40)
[2018-04-25] MEDS: Insulin NovoLOG Aspart Correctional Sugar Inj SQ SCH ×4 (09:02→21:40)
[2018-04-25] MEDS: Collagenase Oint 30 GM Tube TOPICAL SCH (09:15)
--- NOTE | 2018-04-25 14:07 | P.PN ---
Subjective Interval history: Follow-up visit for diabetes mellitus. Spoke with nurse and discussed low blood sugar in the 60s yesterday, no reports of symptoms noted per nurse. Patient seen and examined sitting up in bed in no acute distress. Reports he had something to eat and drink shortly after his blood sugar was low, denies any symptoms during hypoglycemic episode. Denies any fevers, chills, nausea, vomiting or diarrhea. Discussed possible discharge with insulin pen if he is able to use this, will need to have evaluation done by online marketing strategist. Placement to be established possibly locally if patient is able to self administer Levemir pen however if unable to do this patient will need to be transferred to [place] to facility who takes his insurance and is able to administer insulin for him. Physical Exam Vital signs: Vital Signs 04/24/18 18:00 04/25/18 06:14 Temperature 98 F 98.4 F Pulse Rate 83 89 Respiratory Rate 18 15 Blood Pressure 124/64 114/59 L Pulse Oximetry 98 Intake & Output 04/24/18 04/25/18 04/25/18 18:59 06:59 18:59 Intake Total 4360 / 4360 1440 / 1440 Balance 4360 / 4360 1440 / 1440 Intake: IV 1000 / 1000 NS Inj 1,000 ML @ 100 mls/hr IV 1000 / 1000 .CONT .Q10H AVTAR Rx#:[id number] Oral 3360 / 3360 1440 / 1440 Other: # Voids 3 1 Narrative: GENERAL: This is a well-nourished, well-developed patient, in no apparent distress. SKIN: Warm and dry. Bilateral lower extremity with shavon wrap. HEENT: Normocephalic. Pupils equal round and reactive. Nose without bleeding. Airway patent. NECK: Trachea midline. CARDIOVASCULAR: Regular rate and rhythm without murmurs, gallops, or rubs. RESPIRATORY: Clear to auscultation. Breath sounds equal bilaterally. No wheezes , rales, or rhonchi. GASTROINTESTINAL: Abdomen soft, non-tender, nondistended. Bowel Sounds normoactive x4. MUSCULOSKELETAL: Extremities without clubbing, cyanosis. Bilateral lower extremity edema. Bilateral chronic hand contractures. NEUROLOGICAL: Awake and alert. Oriented to place, person. Moves all extremities. Normal speech. Results - Labs CBC & Chem 7: 04/22/18 09:34 04/23/18 08:33 Laboratory Results - last 24 hr 04/24/18 04/24/18 04/25/18 16:08 20:05 00:37 POC Glucose 89 64 L 94 04/25/18 04/25/18 06:23 11:27 POC Glucose 117 H 92 - Procedures NONE Assessment and Plan - Plan 52 year old male with infected bilateral lower extremity wounds and diabetes mellitus Bilateral lower extremity wounds, infected. I&D performed in ER by podiatry, legs currently wrapped with bilateral compression. Sonia crusis -Cultures no growth to date.Wound culture has not been done from admission. -Continue IV Vanco and IV Zosyn, discontinued, switch over to p.o. antibiotics Bactrim/ keflex -Diflucan daily for fungal coverage -Podiatry has seen and followed the patient. Recommends dressing change once a week. Collagenase and Xeroform to be applied. Patient will need to have a follow-up either with home health care or in the wound care center. -Physical therapy eval and treat -Edema improved, wound healing. -DC Bactrim switch over to clindamycin, cont keflex till end date Diabetes mellitus, uncontrolled. -A1C 10.6 -Insulin sliding scale. insulin 70/30 twice daily 10 units. -Metformin 1000 twice daily -ski tow operator consulted, patient unable to inject insulin, will need to be reevaluated on use of insulin pen. -If patient is still not able to use insulin pen, consider starting glipizide while inpatient to monitor response prior to discharge. Discussed with primary team. -Hypoglycemic yesterday night, discussed the importance of at bedtime snack , continue to monitor trend and adjust medications accordingly. 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 -Metoprolol 25 ER, will restart amlodipine if warranted. -Monitor BP trend Acute kidney - Encourage p.o. fluid intake. -Improved DVT prop Lovenox Discussed Condition With: Patient, nurse, Dr. Kaufman.
--- NOTE | 2018-04-25 17:29 | P.PNPSY ---
Subjective Remarks: Patient seen for follow-up, chart reviewed. Discussion with nursing staff reported that patient slept well with no behavioral services. Patient was found heavily on unit noted B, cooperative. Patient state his mood has been "good". Denies any perceptional services no longer focused on delusion that he reported upon admission. He reports compliant with treatment and is accepting of his medical diagnosis of diabetes and is willing to continue recommendations. Patient continues to deny any SI, HI, or perceptual disturbances. Review of Systems All other systems reviewed negative except as stated in HPI Mental Status Examination Appearance: Appropriate Consciousness: Alert Orientation: Person, Place Motor Activity: Abnormal gait (Require walker) Speech: Unremarkable Language: Adequate Fund of Knowledge: Inadequate Attention and Concentration: Adequate Memory: Impaired Mood: Appropriate Affect: Appropriate Thought Process & Associations: Intact, Goal directed, Other ([place]) Thought Content: Appropriate, Delusional (Minimal) Hallucination Type: None Delusion Type: Bizarre, Somatic Suicidal Ideation: No Suicidal Plan: No Suicidal Intention: No Homicidal Ideation: No Homicidal Plan: No Homicidal Intention: No Insight: Fair Judgment: Impulsive Assessment and Plan - Assessment (1) Schizophrenia Code(s): F20.9 - Schizophrenia, unspecified Status: Acute - Plan Plan: Patient this time stable mood no longer perseverative on bizarre somatic delusions of pepper spray having because his current symptoms. Patient compliant with treatment, will continue current regimen continue to monitor mood and behavior. Discharge planning a progress. Justification for Continued Inpatient Stay: At risk of further decompensation at lower level care. Discharge Planning: Patient to be referred to a health and rehab facility
[2018-04-25] MEDS: Enoxaparin Inj 40 MG/0.4 ML Syringe SQ SCH (18:15)
--- NOTE | 2018-04-26 08:37 | P.PN ---
Subjective Interval history: Follow-up visit for diabetes mellitus. Blood sugars have been well controlled with no episodes of hypoglycemia overnight. Spoke with community health educator, patient unable to self inject insulin or perform Accu-Cheks due to dexterity, would benefit from rehab with ongoing physical therapy once discharged. Discussed with patient trial of Glipizide instead of insulin, he is agreeable. He voices no other acute concerns or complaints at the moment. Physical Exam Vital signs: Vital Signs 04/25/18 17:35 04/26/18 06:00 Temperature 98.0 F 97.0 F L Pulse Rate 98 H 91 H Respiratory Rate 16 16 Blood Pressure 115/57 L 107/64 Pulse Oximetry 96 97 Intake & Output 04/25/18 04/26/18 04/26/18 18:59 06:59 18:59 Intake Total 480 / 480 1440 / 1440 Balance 480 / 480 1440 / 1440 Intake: Oral 480 / 480 1440 / 1440 Other: # Voids 3 Date of Last Bowel Movement 04/20/18 # Bowel Movements 1 Narrative: GENERAL: This is a well-nourished, well-developed patient, in no apparent distress. SKIN: Warm and dry. Bilateral lower extremity with shavon wrap. HEENT: Normocephalic. Pupils equal round and reactive. Nose without bleeding. Airway patent. NECK: Trachea midline. CARDIOVASCULAR: Regular rate and rhythm without murmurs, gallops, or rubs. RESPIRATORY: Clear to auscultation. Breath sounds equal bilaterally. No wheezes , rales, or rhonchi. GASTROINTESTINAL: Abdomen soft, non-tender, nondistended. Bowel Sounds normoactive x4. MUSCULOSKELETAL: Extremities without clubbing, cyanosis. Bilateral lower extremity edema. Bilateral chronic hand contractures. NEUROLOGICAL: Awake and alert. Oriented to place, person. Moves all extremities. Normal speech. Results - Labs CBC & Chem 7: 04/22/18 09:34 04/23/18 08:33 Laboratory Results - last 24 hr 04/25/18 04/25/18 04/25/18 11:27 16:27 20:05 POC Glucose 92 84 110 04/26/18 05:27 POC Glucose 108 - Procedures NONE Assessment and Plan - Plan 52 year old male with infected bilateral lower extremity wounds and diabetes mellitus Bilateral lower extremity wounds, infected. I&D performed in ER by podiatry, legs currently wrapped with bilateral compression. Sonia crusis -Cultures no growth to date.Wound culture has not been done from admission. -Treated with IV Vanco and IV Zosyn, transitioned to p.o. antibiotics Bactrim / keflex -Diflucan daily for fungal coverage -Podiatry has seen and followed the patient. Recommends dressing change once a week. Collagenase and Xeroform to be applied. Patient will need to have a follow-up either with home health care or in the wound care center. -Physical therapy eval and treat -Edema improved, wound healing. -DC Bactrim switch over to clindamycin, cont keflex till end date Diabetes mellitus, uncontrolled. -A1C 10.6 -Blood sugars well controlled with insulin sliding scale. insulin 70/30 twice daily 10 units, metformin 1000 mg daily. -life educator consulted, patient unable to inject insulin, hold Novolin 70/30, start glipizide 5 mg twice daily and continue monitoring blood sugars. 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 -Metoprolol 25 ER, will restart amlodipine if warranted. -Monitor BP trend Acute kidney - Encourage p.o. fluid intake. -Improved DVT prop Lovenox Discussed Condition With: Patient, RN, community health educator.
[2018-04-26] MEDS ORDERED: glipiZIDE 5 MG Tablet PO SCH ×2 (09:00→17:00)
[2018-04-26] MEDS: Haloperidol 5 MG Tablet PO SCH ×2 (09:54→21:52)
[2018-04-26] MEDS: Lactobacillus Acidophilus/L. Spores Tablet PO SCH ×2 (09:55→21:51)
[2018-04-26] MEDS: Senna/Docusate Sodium 8.6/50 MG Tablet PO SCH ×2 (09:55→21:52)
[2018-04-26] MEDS: Insulin NovoLOG Aspart Correctional Sugar Inj SQ SCH ×4 (09:55→20:52)
[2018-04-26] MEDS: Clotrimazole 1% Cream 15 GM Tube TOPICAL SCH ×2 (09:55→23:44)
[2018-04-26] MEDS: Collagenase Oint 30 GM Tube TOPICAL SCH (09:56)
--- NOTE | 2018-04-26 15:29 | P.PNPSY ---
Subjective Remarks: Patient seen for follow-up, chart reviewed. Discussion with nursing staff reported that patient with no behavioral disturbances, has been compliant with medications. Patient was found in blade on unit noted B, cooperative. Patient states that his mood has been "good" he states he agrees with continuing transition of insulin to p.o. hypoglycemics for his diabetes and agrees to continue treatment. Patient denies any perceptional services of not endorsing any further perseverates on delusions of pepper spray causing his motor deficits. Patient awaiting transfer to a rehabilitation center. Review of Systems All other systems reviewed negative except as stated in HPI Mental Status Examination Appearance: Appropriate Consciousness: Alert Orientation: Person, Place Motor Activity: Abnormal gait (Require walker) Speech: Unremarkable Language: Adequate Fund of Knowledge: Inadequate Attention and Concentration: Adequate Memory: Impaired Mood: Appropriate Affect: Appropriate Thought Process & Associations: Intact, Goal directed, Other ([place]) Thought Content: Appropriate, Delusional (Minimal) Hallucination Type: None Delusion Type: Bizarre Suicidal Ideation: No Suicidal Plan: No Suicidal Intention: No Homicidal Ideation: No Homicidal Plan: No Homicidal Intention: No Insight: Fair Judgment: Impulsive Assessment and Plan - Assessment (1) Schizophrenia Code(s): F20.9 - Schizophrenia, unspecified Status: Acute - Plan Plan: Patient continues with stable mood, continues with compliance with medications. Patient recently transitioned over to oral hypoglycemics and will continue monitored for his blood sugars for good control. Patient awaiting transfer to rehabilitation Center once the facility is acquired. Continue current treatment. Continue to monitor mood and behavior. Discharge planning in progress. Justification for Continued Inpatient Stay: At risk of further decompensation at lower level care.
[2018-04-26] MEDS: Enoxaparin Inj 40 MG/0.4 ML Syringe SQ SCH (18:47)
[2018-04-27] MEDS ORDERED: glipiZIDE 5 MG Tablet PO SCH (08:00)
[2018-04-27] MEDS: Collagenase Oint 30 GM Tube TOPICAL SCH ×2 (08:23→08:27)
[2018-04-27] MEDS: Senna/Docusate Sodium 8.6/50 MG Tablet PO SCH ×2 (08:23→21:30)
[2018-04-27] MEDS: Lactobacillus Acidophilus/L. Spores Tablet PO SCH ×2 (08:23→21:30)
[2018-04-27] MEDS: Clotrimazole 1% Cream 15 GM Tube TOPICAL SCH ×2 (08:23→21:00)
[2018-04-27] MEDS: Haloperidol 5 MG Tablet PO SCH ×2 (08:23→21:30)
[2018-04-27] MEDS: glipiZIDE 5 MG Tablet PO SCH (08:24)
[2018-04-27] MEDS: Insulin NovoLOG Aspart Correctional Sugar Inj SQ SCH ×4 (08:24→21:19)
--- NOTE | 2018-04-27 08:34 | P.PN ---
Subjective Interval history: Follow-up visit for diabetes mellitus. Patient seen and examined ambulating in the [place] in no acute distress. Yesterday had bedtime blood sugar of 73, discussed with patient decreasing glipizide to 2.5 mg. He denies any fevers, chills, nausea, vomiting or diarrhea. Discharge planning underway by primary team. Physical Exam Vital signs: Vital Signs 04/26/18 17:55 04/27/18 05:52 Temperature 98 F 97.6 F Pulse Rate 94 H 96 H Respiratory Rate 18 17 Blood Pressure 98/53 L 127/81 Pulse Oximetry 96 100 Intake & Output 04/26/18 04/27/18 04/27/18 18:59 06:59 18:59 Intake Total 720 / 720 1200 / 1200 Balance 720 / 720 1200 / 1200 Intake: Oral 720 / 720 1200 / 1200 Other: # Voids 2 Date of Last Bowel Movement 04/20/18 Narrative: GENERAL: This is a well-nourished, well-developed patient, in no apparent distress. SKIN: Warm and dry. Bilateral lower extremity with shavon wrap. HEENT: Normocephalic. Pupils equal round and reactive. Nose without bleeding. Airway patent. NECK: Trachea midline. CARDIOVASCULAR: Regular rate and rhythm without murmurs, gallops, or rubs. RESPIRATORY: Clear to auscultation. Breath sounds equal bilaterally. No wheezes , rales, or rhonchi. GASTROINTESTINAL: Abdomen soft, non-tender, nondistended. Bowel Sounds normoactive x4. MUSCULOSKELETAL: Extremities without clubbing, cyanosis. Bilateral lower extremity edema. Bilateral chronic hand contractures. NEUROLOGICAL: Awake and alert. Oriented to place, person. Moves all extremities. Normal speech. Results - Labs CBC & Chem 7: 04/22/18 09:34 04/23/18 08:33 Laboratory Results - last 24 hr 04/26/18 04/26/18 04/26/18 11:37 16:07 18:03 POC Glucose 119 H 63 L 152 H 04/26/18 04/27/18 20:39 06:35 POC Glucose 73 117 H - Procedures NONE Assessment and Plan - Plan 52 year old male with infected bilateral lower extremity wounds and diabetes mellitus Bilateral lower extremity wounds, infected. I&D performed in ER by podiatry, legs currently wrapped with bilateral compression. Sonia crusis -Cultures no growth to date.Wound culture has not been done from admission. -Treated with IV Vanco and IV Zosyn, transitioned to p.o. antibiotics Bactrim / keflex -Diflucan daily for fungal coverage -Podiatry has seen and followed the patient. Recommends dressing change once a week. Collagenase and Xeroform to be applied. Patient will need to have a follow-up either with home health care or in the wound care center. -Physical therapy eval and treat -Edema improved, wound healing. -DC Bactrim switch over to clindamycin, cont keflex till end date Diabetes mellitus, uncontrolled. -A1C 10.6 -Blood sugars well controlled with oral agents, Novolin 70/30 discontinued. -Continue metformin 1000 mg daily. Low blood sugar yesterday night, decrease glipizide to 2.5 mg daily. -critical care educator consulted, patient unable to inject insulin or use glucometer for Accu-Cheks. -Discharge planning underway with the assistance of classification case manager for possible discharge to [facility] or short-term rehab facility. 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 -BP yesterday night a bit on the lower side, will decrease metoprolol to 12.5 mg -Monitor BP trend Acute kidney encourage p.o. fluid intake. -Improved DVT prop Lovenox Patient medically stable for discharge to [facility] or rehab facility once this is established. Discussed Condition With: Patient and RN
[2018-04-27] MEDS: Enoxaparin Inj 40 MG/0.4 ML Syringe SQ SCH (16:50)
--- NOTE | 2018-04-27 17:07 | P.PNPSY ---
Subjective Remarks: Pt seen and discussed with staff. He was admitted for cellulitis and reports of self neglect. He has been pleasant and cooperative with care and medications. He has a reported hx of schizophrenia. and has some questionable somatic delusions. No aggression or agitation. Mental Status Examination Appearance: Appropriate Consciousness: Alert Orientation: Person, Place Motor Activity: Abnormal gait (Require walker) Speech: Unremarkable Language: Adequate Fund of Knowledge: Inadequate Attention and Concentration: Adequate Memory: Impaired Mood: Appropriate Affect: Appropriate Thought Process & Associations: Intact, Goal directed, Other ([place]) Thought Content: Appropriate, Delusional (Minimal) Hallucination Type: None Delusion Type: Bizarre (mild) Suicidal Ideation: No Suicidal Plan: No Suicidal Intention: No Homicidal Ideation: No Homicidal Plan: No Homicidal Intention: No Insight: Fair Judgment: Impulsive Assessment and Plan - Assessment (1) Schizophrenia Code(s): F20.9 - Schizophrenia, unspecified Status: Acute - Plan Plan: Continue current treatment. Continue to monitor mood and behavior. Discharge planning in progress. Justification for Continued Inpatient Stay: risk of decompensation. complicating medical conditions
[2018-04-28] MEDS: Senna/Docusate Sodium 8.6/50 MG Tablet PO SCH ×2 (08:09→21:03)
[2018-04-28] MEDS: Lactobacillus Acidophilus/L. Spores Tablet PO SCH ×2 (08:09→21:03)
[2018-04-28] MEDS: glipiZIDE 5 MG Tablet PO SCH (08:09)
[2018-04-28] MEDS: Haloperidol 5 MG Tablet PO SCH ×2 (08:09→21:03)
[2018-04-28] MEDS: Collagenase Oint 30 GM Tube TOPICAL SCH (08:10)
[2018-04-28] MEDS: Clotrimazole 1% Cream 15 GM Tube TOPICAL SCH ×2 (08:11→21:33)
[2018-04-28] MEDS: Insulin NovoLOG Aspart Correctional Sugar Inj SQ SCH ×4 (08:11→21:33)
--- NOTE | 2018-04-28 08:28 | P.PN ---
Subjective Interval history: Follow-up visit for DM. Nurse does not report any acute events overnight or this morning, BS so far stable. Later in the morning low BS at 63. Will DC low dose Glipizide and monitor BS on Metformin. Patient denies any fevers, chills, N /V/D. Physical Exam Vital signs: Vital Signs 04/27/18 16:19 04/28/18 06:00 Temperature 97.0 F L 97.6 F Pulse Rate 89 107 H Respiratory Rate 17 16 Blood Pressure 106/72 111/68 Pulse Oximetry 95 98 Intake & Output 04/27/18 04/28/18 04/28/18 18:59 06:59 18:59 Intake Total 1919 Balance 1919 Intake: Oral 1919 Other: # Voids 3 Narrative: GENERAL: This is a well-nourished, well-developed patient, in no apparent distress. SKIN: Warm and dry. Bilateral lower extremity with shavon wrap. HEENT: Normocephalic. Pupils equal round and reactive. Nose without bleeding. Airway patent. NECK: Trachea midline. MUSCULOSKELETAL: Extremities without clubbing, cyanosis. Bilateral lower extremity edema. Bilateral chronic hand contractures. NEUROLOGICAL: Awake and alert. Oriented to place, person. Moves all extremities. Normal speech. Results - Labs CBC & Chem 7: 04/22/18 09:34 04/23/18 08:33 Laboratory Results - last 24 hr 04/27/1818 04/27/18 11:17 16:20 20:42 POC Glucose 74 97 105 04/28/18 06:46 POC Glucose 114 H - Procedures NONE Assessment and Plan - Plan 52 year old male with infected bilateral lower extremity wounds and diabetes mellitus Bilateral lower extremity wounds, infected. I&D performed in ER by podiatry, legs currently wrapped with bilateral compression. Sonia crusis -Cultures no growth to date.Wound culture has not been done from admission. -Treated with IV Vanco and IV Zosyn, transitioned to p.o. antibiotics Bactrim / keflex -Diflucan daily for fungal coverage -Podiatry has seen and followed the patient. Recommends dressing change once a week. Collagenase and Xeroform to be applied. Patient will need to have a follow-up either with home health care or in the wound care center. -Physical therapy eval and treat -Edema improved, wound healing. -DC Bactrim switch over to clindamycin, cont keflex till end date Diabetes mellitus, uncontrolled. -A1C 10.6 -Blood sugars well controlled with oral agents, Novolin 70/30 discontinued. -Continue metformin 1000 mg daily. Glipizide to 2.5 mg daily, BS low in the the late morning, DC Glipizide and monitor BS on metformin only. -health promotion educator consulted, patient unable to inject insulin or use glucometer for Accu-Cheks. -Discharge planning underway with the assistance of binder caser for possible discharge to [facility] or short-term rehab facility. 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 -Continue metoprolol to 12.5 mg -Monitor BP trend Acute kidney encourage p.o. fluid intake. -Improved DVT prop Lovenox Will monitor BS today and tomorrow, likely DC Rx dose of Glipizide and only continue Metformin. Discussed Condition With: Patient and RN
[2018-04-28] MEDS: Enoxaparin Inj 40 MG/0.4 ML Syringe SQ SCH (17:10)
--- NOTE | 2018-04-28 18:20 | P.PNPSY ---
Subjective Remarks: Pt seen and discussed with staff. He has been cooperative with care and medications. He has been participating in therapeutic activities. He was frustrated by acuity of unit today. No SI/HI Mental Status Examination Appearance: Appropriate Consciousness: Alert Orientation: Person, Place Motor Activity: Abnormal gait (Require walker) Speech: Unremarkable Language: Adequate Fund of Knowledge: Inadequate Attention and Concentration: Adequate Memory: Impaired Mood: Appropriate Affect: Appropriate Thought Process & Associations: Intact, Goal directed, Other ([place]) Thought Content: Appropriate, Delusional (Minimal) Hallucination Type: None Delusion Type: Bizarre (mild) Suicidal Ideation: No Suicidal Plan: No Suicidal Intention: No Homicidal Ideation: No Homicidal Plan: No Homicidal Intention: No Insight: Fair Judgment: Impulsive Assessment and Plan - Assessment (1) Schizophrenia Code(s): F20.9 - Schizophrenia, unspecified Status: Acute - Plan Plan: Continue current treatment. Continue to monitor mood and behavior. Discharge planning in progress. Justification for Continued Inpatient Stay: risk of decompensation
--- NOTE | 2018-04-29 09:08 | P.PN ---
Subjective Interval history: Follow-up visit for DM and HTN. Patient has episode of hypoglycemia yesterday with low dose Glipizide. Discussed with patient discontinuing Glipizide and just continuing Metformin along with accu-chechs and insulin if needed. His Metoprolol dose was also adjusted discussed with patient. Plans for possible DC today. Physical Exam Vital signs: Vital Signs 04/28/18 14:37 04/29/18 05:10 Temperature 98.0 F 97.7 F Pulse Rate 87 103 H Respiratory Rate 16 16 Blood Pressure 109/56 L 106/67 Pulse Oximetry 99 99 Intake & Output 04/28/18 04/29/18 04/29/18 18:59 06:59 18:59 Intake Total 2079 1080 / 1080 960 / 960 Output Total Balance 2079 1079 / 1079 960 / 960 Weight 91.2 kg Intake: Oral 2079 1080 / 1080 960 / 960 Output: Urine Other: # Voids 4 Narrative: GENERAL: This is a well-nourished, well-developed patient, in no apparent distress. SKIN: Warm and dry. Bilateral lower extremity with shavon wrap. HEENT: Normocephalic. Pupils equal round and reactive. Nose without bleeding. Airway patent. NECK: Trachea midline. MUSCULOSKELETAL: Extremities without clubbing, cyanosis. Bilateral lower extremity edema. Bilateral chronic hand contractures. NEUROLOGICAL: Awake and alert. Oriented to place, person. Moves all extremities. Normal speech. Results - Labs CBC & Chem 7: 04/22/18 09:34 04/23/18 08:33 Laboratory Results - last 24 hr 04/28/18 04/28/18 04/28/18 11:03 12:05 16:07 POC Glucose 63 L 104 100 04/28/18 04/29/18 20:34 06:34 POC Glucose 122 H 137 H - Procedures NONE Assessment and Plan - Plan 52 year old male with infected bilateral lower extremity wounds and diabetes mellitus Bilateral lower extremity wounds, infected. I&D performed in ER by podiatry, legs currently wrapped with bilateral compression. Sonia crusis -Cultures no growth to date.Wound culture has not been done from admission. -Treated with IV Vanco and IV Zosyn, transitioned to p.o. antibiotics Bactrim / keflex -Diflucan daily for fungal coverage -Podiatry has seen and followed the patient. Recommends dressing change once a week. Collagenase and Xeroform to be applied. Patient will need to have a follow-up either with home health care or in the wound care center. -Physical therapy eval and treat -Edema improved, wound healing. -DC Bactrim switch over to clindamycin, cont keflex till end date Diabetes mellitus, uncontrolled. -A1C 10.6 -Episode of hypoglycemia on 2.5 mg of glipizide. Will discontinue and discontinue metformin along with insulin sliding scale. -medical educator consulted, patient unable to inject insulin or use glucometer for Accu-Cheks. -Discharge planning underway with the assistance of spring encaser for possible discharge to jail or short-term rehab facility. 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 -Continue metoprolol to 12.5 mg -Monitor BP trend Acute kidney encourage p.o. fluid intake. -Improved DVT prop Lovenox Revised prescriptions printed for patient and placed in chart. Discussed Condition With: Patient and RN
[2018-04-29] MEDS: Haloperidol 5 MG Tablet PO SCH ×2 (10:05→21:52)
[2018-04-29] MEDS: Senna/Docusate Sodium 8.6/50 MG Tablet PO SCH ×2 (10:06→21:52)
[2018-04-29] MEDS: Collagenase Oint 30 GM Tube TOPICAL SCH (10:07)
[2018-04-29] MEDS: Clotrimazole 1% Cream 15 GM Tube TOPICAL SCH ×2 (10:08→21:52)
[2018-04-29] MEDS: Lactobacillus Acidophilus/L. Spores Tablet PO SCH ×2 (10:08→21:52)
[2018-04-29] MEDS: Insulin NovoLOG Aspart Correctional Sugar Inj SQ SCH ×4 (10:46→21:52)
--- NOTE | 2018-04-29 11:27 | P.TTN ---
- Patient Problems Problems: 1. Discharge planning 2. Medication compliance 3. Knowledge deficit 4. Lack of coping skills - Progress Toward Goals Provider Present: Dr. Syd Kaufman Provider Input: 04/29/2018; patient is stable no psych change at this time; patient can be dc when rehab is in place. 04/24/2018; patient is being stabilized on medical meds, requires treatment with leg wound; and dc plan continues to be short term Rehab. 04/22/2018; Per doctor patient is being stabilized on medical meds, requires treatment with leg wound. Nurse(s) Present: Shashi Cox Nurse Input: 04/29/20187; per RN patient is eating meals and taking meds, no behavior. 04/24/2018; per RN patient is no behavior issues, he is eating meals and taking medication, require assistance with some of his self-care. 2017; per RN patient is no behavior issues, he is eating meals and taking medication, require assistance with some of his self-care. Psychiatric Counselors Present: LOREN Boucher Psychiatric Therapist Input: 04/29/2018; counselor is working with dc special events planner with skill Rehab. 04/24/2018; counselor will work with DC special events planner with obtaining appropriate Skill nursing for PT/OT; counselor have contact [facility] to confirm patient is able to return after dc form Rehab. Counselor spoke with Anabela the marble supervisor who confirmed patient will be able to return after completing Rehab. 04/22/2018; counselor will work with DC special events planner with obtaining appropriate Skill nursing for PT/OT; counselor will also contact [facility] to confirm patient is able to return after dc form Rehab. Group Spec/RT/OT/MACDONALD Present: Bernabe Torres OT Group Spec/RT/OT/MACDONALD Input: 04/29/2019; patient participates with all activities. 04/24/2018; Per OT patient is participating with some activities. 04/22/2018; Per OT patient is not participating with activities. - Documentation Teaching Recipient: Patient
[2018-04-29] MEDS: Enoxaparin Inj 40 MG/0.4 ML Syringe SQ SCH (17:10)
--- NOTE | 2018-04-29 18:15 | P.PNPSY ---
Subjective Remarks: Patient seen for follow-up, chart reviewed. Discussion with nursing staff reported that patient was cooperative with staff and no behavioral disturbances. Patient was unable to become cooperative. Patient stated that his week went well although states that he has been attending groups. He is looking forward to discharge today and his mood has been good denies any perceptual disturbances no longer endorsing any further perseveration of delusions although present when asked but does not impede in his function at this time. Patient has good insight into his medical illnesses and is willing to continue treatment. Review of Systems All other systems reviewed negative except as stated in HPI Mental Status Examination Appearance: Appropriate Consciousness: Alert Orientation: Person, Place, Date/Time Motor Activity: Abnormal gait (Require walker) Speech: Unremarkable Language: Adequate Fund of Knowledge: Inadequate Attention and Concentration: Adequate Memory: Impaired Mood: Appropriate Affect: Appropriate Thought Process & Associations: Intact, Goal directed Thought Content: Appropriate Hallucination Type: None Delusion Type: None Suicidal Ideation: No Suicidal Plan: No Suicidal Intention: No Homicidal Ideation: No Homicidal Plan: No Homicidal Intention: No Insight: Fair Judgment: Impulsive Assessment and Plan - Assessment (1) Schizophrenia Code(s): F20.9 - Schizophrenia, unspecified Status: Acute - Plan Plan: Patient with stable mood no longer endorsing perseveration of delusions noted, cooperative. No perceptual disturbances. We will continue current treatment. Patient discharged tomorrow back to assisted living facility in [place]. Discharge planning in progress. Justification for Continued Inpatient Stay: At risk of further decompensation at lower level care.
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
== END 2018-04-30 07:15 | disposition home or self-care (01) ==
LOC: H4EA 15:53
PROVIDERS: ADMIT Student in an Organized Health Care Education/Training Program; ATTEND Student in an Organized Health Care Education/Training Program